=== PATIENT | male | born 1955 | race Caucasian/White ===

== ENCOUNTER 2018-06-06 01:05 | Emergency (ER) | payer MEDICARE, BC ==
--- NOTE | 2018-06-06 01:21 | ERPHSYRPT ---
- History of Present Illness Time Seen by Provider: 06/06/18 01:10 Historian: patient Exam Limitations: no limitations Physician History: 62 y/o diabetic, obese white male with hypertension and hypercholesterolemia prensts with substernal central chest pain described as chest congestion and assoociated sweating. onset 1 hour captain cannery tender. pt took 2 baby asa and no ntg. pt denies cp at time of this evaluation. pt was resting. pts gallbladder surgically removed. pt has h/o heart vessell blockage on plavix. Timing/Duration: today, hour(s) (1) Activities at Onset: rest Quality: fullness, pressure Location: substernal, central Chest Pain Radiation: no radiation Severity of Pain-Max: moderate (intermittent since yeserday) Severity of Pain-Current: none Modifying Factors: Improves With: aspirin Associated Symptoms: diaphoresis, No nausea, No vomiting, No palpitations, No heartburn, No abdominal pain, No shortness of breath, No cough, No hurts to breathe, No chills, No fever, No fatigue, No weakness, No swelling/lump in chest , No syncope, No headache, No dizziness, No back pain Prior Chest Pain/Cardiac Workup: cardiac cath, stress test Nitro Today/Relief: no nitro taken today Aspirin Treatment Today: 81 mg x 2 Allergies/Adverse Reactions: bacitracin [From Neosporin] Allergy (Mild, Unverified 02/18/12 20:13) Blisters neosporin ointment bacitracin zinc [From Neosporin] Allergy (Mild, Unverified 02/18/12 20:13) Blisters neosporin ointment benzalkonium chloride [From Neosporin] Allergy (Mild, Unverified 02/18/12 20:13) Blisters neosporin ointment gramicidin D [From Neosporin] Allergy (Mild, Unverified 02/18/12 20:13) Blisters neosporin ointment hydrocortisone [From Neosporin] Allergy (Mild, Unverified 02/18/12 20:13) Blisters neosporin ointment neomycin sulfate [From Neosporin] Allergy (Mild, Unverified 02/18/12 20:13) Blisters neosporin ointment polymyxin B [From Neosporin] Allergy (Mild, Unverified 02/18/12 20:13) Blisters neosporin ointment polymyxin B sulfate [From Neosporin] Allergy (Mild, Unverified 02/18/12 20:13) Blisters neosporin ointment liraglutide [From Victoza] Allergy (Verified 06/06/18 01:30) morphine Adverse Reaction (Intermediate, Unverified 02/18/12 20:13) hallucinate Home Medications: Insulin Glargine [Lantus Insulin] 70 units SQ HS 11/21/11 [History] Insuln Asp Prt/Insulin Aspart [Novolog Mix 70-30 Flexpen Syrn] 15 units SQ QAM 11/21/11 [History] Simvastatin 20Mg [Zocor 20Mg] 40 mg PO DAILY 11/21/11 [History] Aspirin 162 mg PO DAILY 11/23/11 [History] Amlodipine Besylate 5 mg [Norvasc 5 mg] 5 mg PO DAILY 06/06/18 [History] Carvedilol 12.5 mg [Coreg 12.5 mg] 12.5 mg PO BID 06/06/18 [History] Dapagliflozin Propanediol [Farxiga] 5 mg PO DAILY 06/06/18 [History] Enalapril Maleate 10 mg [Vasotec 10 MG] 20 mg PO DAILY 06/06/18 [History] Hydrochlorothiazide 12.5 mg PO DAILY 06/06/18 [History] Insulin Aspart [NovoLOG Insulin] 1 unit SQ AC 06/06/18 [History] Insulin Aspart [NovoLOG Insulin] 20 unit SQ DINNER 06/06/18 [History] Insulin Aspart [NovoLOG Insulin] 25 units SQ LUNCH 06/06/18 [History] Metformin HCl 1,000 mg PO BID 06/06/18 [History] Hx Tetanus, Diphtheria Vaccination/Date Given: No (more than 10 yrs) Hx Influenza Vaccination/Date Given: Yes (2010) Hx Pneumococcal Vaccination/Date Given: Yes (2010) - Review of Systems Constitutional: No Symptoms, No Fever, No Weakness Eyes: No Symptoms Ears, Nose, & Throat: No Symptoms Respiratory: No Symptoms Cardiac: Chest Pain Abdominal/Gastrointestinal: No Symptoms, No Abdominal Pain, No Nausea, No Vomiting Genitourinary Symptoms: No Symptoms, No Dysuria, No Frequency, No Hematuria Musculoskeletal: No Symptoms Skin: Other (diaphoresis) Neurological: No Symptoms Psychological: No Symptoms Endocrine: Excessive Sweating (this am) Hematologic/Lymphatic: No Symptoms Immunological/Allergic: No Symptoms All Other Systems: Reviewed and Negative - Past Medical History Pertinent Past Medical History: Yes Neurological History: Peripheral Neuropathy ENT History: No Pertinent History Cardiac History: Coronary Artery Disease, High Cholesterol, Hypertension Respiratory History: No Pertinent History Endocrine Medical History: Diabetes Type II Musculoskeletal History: Arthritis GI Medical History: No Pertinent History History: No Pertinent History Psycho-Social History: No Pertinent History Male Reproductive Disorders: No Pertinent History Other Medical History: SEE ABOVE - Past Surgical History Past Surgical History: Yes Neuro Surgical History: No Pertinent History Cardiac: Cardiac Catheterization Respiratory: No Pertinent History Gastrointestinal: Cholecystectomy Genitourinary: No Pertinent History Musculoskeletal: Orthopedic Surgery Male Surgical History: No Pertinent History Other Surgical History: Choly, Right Leg - Social History Smoking Status: Never smoker Exposure to second hand smoke: No Drug Use: none Patient Lives Alone: No - Nursing Vital Signs Nursing Vital Signs: Initial Vital Signs Temperature 99.5 F 06/06/18 01:07 Pulse Rate 80 06/06/18 01:07 Respiratory Rate 24 06/06/18 01:07 Blood Pressure 152/74 06/06/18 01:07 O2 Sat by Pulse Oximetry 95 06/06/18 01:07 Pain Scale Pain Intensity 0 - Physical Exam General Appearance: mild distress, alert, anxiety Eye Exam: PERRL/EOMI, eyes nml inspection Ears, Nose, Throat Exam: normal ENT inspection, TMs normal, moist mucous membranes Neck Exam: normal inspection, non-tender, supple, full range of motion Respiratory Exam: normal breath sounds, chest tenderness, lungs clear, airway intact, No respiratory distress, No accessory muscle use, No rhonchi, No wheezing, No stridor Cardiovascular Exam: regular rate/rhythm, normal heart sounds, normal peripheral pulses Gastrointestinal/Abdomen Exam: soft, normal bowel sounds, No tenderness, No guarding, No rebound Rectal Exam: not done Back Exam: normal inspection, normal range of motion, No CVA tenderness, No vertebral tenderness Extremity Exam: normal inspection, normal range of motion, pelvis stable Neurologic Exam: alert, oriented x 3, cooperative, jockey valet II-XII nml as tested Skin Exam: diaphoresis Lymphatic Exam: No adenopathy SpO2 Interpretation: normal Oxygen Delivery: Room Air - Course Nursing assessment & vital signs reviewed: Yes EKG Interpreted by Me: RATE (81), A-fib (? new onset rate controlled), NORMAL AXIS, NORMAL INTERVALS (compared to ekg dated 11/26/11, new onset nonspecific st changes in leads 1 and v6), Non-specific ST Changes Ordered Tests: Active Orders 24 hr Category Date Time Status ACCUCHECK [Accucheck] STAT Care 06/06/18 01:53 Active Embossing Machine Operator STAT Care 06/06/18 01:26 Active EKG-ER Only STAT Care 06/06/18 01:25 Active IV Insertion STAT Care 06/06/18 01:25 Active Oxygen-ED Only NASAL CANNULA 2 lpm Care 06/06/18 01:51 Active Pulse Oximetry (ED) STAT Care 06/06/18 01:25 Active CHEST 1 VIEW (PORTABLE) Stat Exams 06/06/18 01:44 Taken CHEST WITH CONTRAST [CT] Stat Exams 06/06/18 03:27 Taken BLOOD CULTURE Stat Lab 06/06/18 03:45 Received CBC W DIFF Stat Lab 06/06/18 01:30 Completed CMP Stat Lab 06/06/18 01:30 Completed D-DIMER QUANTITATION Stat Lab 06/06/18 01:30 Completed Lactic Acid Stat Lab 06/06/18 03:48 Completed NT PRO BNP Stat Lab 06/06/18 01:30 Completed PROTIME WITH INR Stat Lab 06/06/18 01:30 Completed TROPONIN Q3H Lab 06/06/18 01:30 Completed TROPONIN Q3H Lab 06/06/18 04:30 Ordered TROPONIN Q3H Lab 06/06/18 07:30 Ordered TROPONIN Q3H Lab 06/06/18 10:30 Ordered TROPONIN Q3H Lab 06/06/18 13:30 Ordered Medication Summary Generic Name Dose Route Start Last Admin Trade Name Freq PRN Reason Stop Dose Admin Sodium Chloride 1,000 mls @ 50 mls/hr 06/06/18 01:30 06/06/18 01:34 Sodium Chloride 0.9% 1000 Ml IV 07/06/18 01:29 50 mls/hr .Q20H FREDDY Administration Discontinued Medications Generic Name Dose Route Start Last Admin Trade Name Freq PRN Reason Stop Dose Admin Aspirin 162 mg 06/06/18 01:25 06/06/18 01:33 Baby Aspirin 81 Mg Chew PO 06/06/18 01:26 162 mg STAT ONE Administration Aspirin Confirm 06/06/18 01:31 Baby Aspirin 81 Mg Chew Administered 06/06/18 01:32 Dose 162 mg .ROUTE .STK-MED ONE Ceftriaxone Sodium/Dextrose 1 g in 50 mls @ 100 mls/hr 06/06/18 04:01 04:36 Rocephin 1 Gm-D5w 50 Ml Bag IV 06/06/18 04:30 Infused STAT STA Infusion Ceftriaxone Sodium/Dextrose Confirm 06/06/18 04:03 Rocephin 1 Gm-D5w 50 Ml Bag Administered 06/06/18 04:04 Dose 1 g in 50 mls @ ud IV .STK-MED ONE Nitroglycerin 0.4 mg 06/06/18 01:25 06/06/18 01:34 Nitrostat 0.4 Mg (Ed) SL 06/06/18 01:26 0.4 mg STAT ONE Administration Nitroglycerin Confirm 06/06/18 01:31 Nitrostat 0.4 Mg (Ed) Administered 06/06/18 01:32 Dose 0.4 mg SL .STK-MED ONE Ondansetron HCl 4 mg 06/06/18 01:25 06/06/18 01:34 Zofran 4 Mg/2 Ml Vial IV 06/06/18 01:26 4 mg STAT ONE Administration Ondansetron HCl Confirm 06/06/18 01:31 Zofran 4 Mg/2 Ml Vial Administered 06/06/18 01:32 Dose 4 mg .ROUTE .STK-MED ONE Lab/Rad Data: Laboratory Result Diagrams 06/06/18 01:30 06/06/18 01:30 Laboratory Results 06/06/18 06/06/18 06/06/18 Range/Units 03:48 01:30 01:30 WBC (4.0-10.5) K/mm3 RBC (4.1-5.6) M/mm3 Hgb (12.5-18.0) gm/dl Hct (42-50) % MCV (78-100) fl MCH (26-32) pg MCHC (32-36) g/dl RDW (11.5-14.0) % Plt Count (150-450) K/mm3 MPV (6-9.5) fl Gran % (36.0-66.0) % Eos # (Auto) (0-0.5) Absolute Lymphs (auto) (1.0-4.6) Absolute Monos (auto) (0.0-1.3) Lymphocytes % (24.0-44.0) % Monocytes % (0.0-12.0) % Eosinophils % (0.00-5.0) % Basophils % (0.0-0.4) % Absolute Granulocytes (1.4-6.9) Basophils # (0-0.4) PT 11.8 (8.83-12.87) SECONDS INR 1.01 (0.8-3.0) D-Dimer 601 H* (215-500) ng/mL Sodium (137-145) mmol/L Potassium (3.5-5.1) mmol/L Chloride (98-107) mmol/L Carbon Dioxide (22-30) mmol/L Anion Gap (5-15) MEQ/L BUN (9-20) mg/dL Creatinine (0.66-1.25) mg/dL Estimated GFR ML/MIN Glucose (74-106) mg/dL Lactic Acid 1.4 (0.4-2.0) Calcium (8.4-10.2) mg/dL Total Bilirubin (0.2-1.3) mg/dL AST (17-59) U/L ALT (0-50) U/L Alkaline Phosphatase (38-126) U/L Troponin I < 0.012 (0.000-0.034) ng/mL NT-Pro-B Natriuret Pep (0-900) pg/mL Serum Total Protein (6.3-8.2) g/dL Albumin (3.5-5.0) g/dL 18 06/06/18 Range/Units 01:30 01:30 WBC 6.6 (4.0-10.5) K/mm3 RBC 6.05 H (4.1-5.6) M/mm3 Hgb 15.7 (12.5-18.0) gm/dl Hct 49.0 (42-50) % MCV 81.0 (78-100) fl MCH 25.9 L (26-32) pg MCHC 32.0 (32-36) g/dl RDW 18.1 H (11.5-14.0) % Plt Count 222 (150-450) K/mm3 MPV 10.6 H (6-9.5) fl Gran % 55.2 (36.0-66.0) % Eos # (Auto) 0.28 (0-0.5) Absolute Lymphs (auto) 1.34 (1.0-4.6) Absolute Monos (auto) 1.31 H (0.0-1.3) Lymphocytes % 20.4 L (24.0-44.0) % Monocytes % 19.9 H (0.0-12.0) % Eosinophils % 4.3 (0.00-5.0) % Basophils % 0.2 (0.0-0.4) % Absolute Granulocytes 3.63 (1.4-6.9) Basophils # 0.01 (0-0.4) PT (8.83-12.87) SECONDS INR (0.8-3.0) D-Dimer (215-500) ng/mL Sodium 138 (137-145) mmol/L Potassium 4.6 (3.5-5.1) mmol/L Chloride 103 (98-107) mmol/L Carbon Dioxide 24 (22-30) mmol/L Anion Gap 15.1 H (5-15) MEQ/L BUN 24 H (9-20) mg/dL Creatinine 0.97 (0.66-1.25) mg/dL Estimated GFR > 60.0 ML/MIN Glucose 122 H (74-106) mg/dL Lactic Acid (0.4-2.0) Calcium 9.2 (8.4-10.2) mg/dL Total Bilirubin 0.90 (0.2-1.3) mg/dL AST 82 H (17-59) U/L ALT 75 H (0-50) U/L Alkaline Phosphatase 102 (38-126) U/L Troponin I (0.000-0.034) ng/mL NT-Pro-B Natriuret Pep 271 (0-900) pg/mL Serum Total Protein 6.3 (6.3-8.2) g/dL Albumin 4.0 (3.5-5.0) g/dL - Progress Progress: improved, re-examined Air Movement: good Progress Note: 06/06/18 04:53 cxr-?bibasilar atelectasis vs infiltrate ct chest-right lower lobe pneumonia. no pulm emboli 06/06/18 05:10 no cp. repeat 3 hr ekg 0503 hr74, normal axis. no acute st segment changes. Blood Culture(s) Obtained: Yes Antibiotics given: Yes Counseled pt/family regarding: lab results, diagnosis, need for follow-up, rad results - Departure Time of Disposition: 05:12 Departure Disposition: Home Clinical Impression: Chest pain in adult, Right lower lobe pneumonia Condition: Stable Critical Care Time: No Referrals: DIRK KELLEY [Primary Care Provider] - Additional Instructions: drink plenty of fluids. follow up with primary doctor for further management. take medications as prescribed. return to ED for worsening symptoms Prescriptions: Azithromycin 250 mg [Zithromax 250 MG TABLET] 250 mg PO ZPACK #6 tablet
[2018-06-06] MEDS ORDERED: Nitrostat 0.4 MG (ED) SL ONE ×2 (01:25→01:31)
[2018-06-06] MEDS ORDERED: Zofran 4 MG/2 ML VIAL IV ONE (01:25)
[2018-06-06] MEDS ORDERED: BABY ASPIRIN 81 MG CHEW PO ONE (01:25)
[2018-06-06] MEDS ORDERED: Sodium Chloride 0.9% 1000 ML 1,000 ML IV SCH (01:30)
[2018-06-06] MEDS ORDERED: Sodium Chloride 0.9% 1000 ML 1,000 ML ONE (01:31)
[2018-06-06] MEDS ORDERED: BABY ASPIRIN 81 MG CHEW ONE (01:31)
[2018-06-06] MEDS ORDERED: Zofran 4 MG/2 ML VIAL ONE (01:31)
[2018-06-06 01:46] LABS: BASOPHIL % 0.2 % (0.0-0.4); Basophil (Absolute #) 0.01 (0-0.4); Eosinophil % 4.3 % (0.00-5.0); Eosinophil (Absolute #) 0.28 (0-0.5); Granulocyte Absolute (ANC) 3.63 (1.4-6.9); Granulocytes % 55.2 % (36.0-66.0); Hemoglobin 15.7 gm/dl (12.5-18.0); Lymphocyte (Absolute #) 1.34 (1.0-4.6); Lymphocytes % 20.4 % (24.0-44.0); Mean Platelet Volume 10.6 fl (6-9.5); Monocyte (Absolute #) 1.31 (0.0-1.3); Monocytes % 19.9 % (0.0-12.0); Platelet Count 222 K/mm3 (150-450); Red Blood Count 6.05 M/mm3 (4.1-5.6); Red Cell Distribution Width 18.1 % (11.5-14.0); White Blood Count 6.6 K/mm3 (4.0-10.5)
[2018-06-06 01:58] LABS: Mean Corpuscular Hemoglobin 25.9 pg (26-32)
[2018-06-06 02:00] LABS: INR 1.01 (0.8-3.0)
[2018-06-06 02:14] LABS: ALKALINE PHOSPHATASE 102 U/L (38-126); ANION GAP 15.1 MEQ/L (5-15); BLOOD UREA NITROGEN 24 mg/dL (9-20); CHLORIDE 103 mmol/L (98-107); Calcium 9.2 mg/dL (8.4-10.2); Carbon Dioxide 24 mmol/L (22-30); Creatinine 1 0.97 mg/dL (0.66-1.25); Glucose 122 mg/dL (74-106); NT PRO BNP 271 pg/mL (0-900); Potassium 4.6 mmol/L (3.5-5.1); SGOT/AST 82 U/L (17-59); SGPT/ALT 75 U/L (0-50); SODIUM 138 mmol/L (137-145); Total Protein 6.3 g/dL (6.3-8.2)
[2018-06-06] MEDS ORDERED: ROCEPHIN 1 Gm-D5w 50 ml Bag** 1 G/50 ML IVPB IV STA (04:01)
[2018-06-06] MEDS ORDERED: ROCEPHIN 1 Gm-D5w 50 ml Bag** 1 G/50 ML IVPB IV ONE (04:03)
[2018-06-06 04:08] VITALS: BP 124/65
[2018-06-06 04:57] VITALS: PULSE 72; O2SAT 94
--- NOTE | 2018-06-06 08:27 | XRAY ---
Indication: Short of breath. Elevated d-dimer. Multiple contiguous axial images obtained through the chest using 80 cc Isovue-370 contrast and PE protocol. Comparison: None There is good opacification of the pulmonary arteries to include the lobar and segmental branches. No filling defect or pulmonary embolus. Heart is not enlarged. Aorta is normal in course and caliber. No pathologic mediastinal/hilar lymphadenopathy. Examination of the lung parenchyma demonstrates posterior medial right lower lobe consolidating airspace disease with small effusion. 9 mm left apical noncalcified nodule probably granulomatous. Tiny right middle lobe subpleural calcified granuloma. Bony thorax intact with flowing osteophytes throughout the spine. Limited upper abdomen demonstrates fatty liver, cholecystectomy clips, and 4 cm left renal cyst. Impression: 1. Negative pulmonary embolus. 2. Consolidating right lower lobe airspace disease with small effusion. 3. Subcentimeter left apical noncalcified and tiny right middle lobe calcified granulomatous. 4. Incidental fatty liver and left renal cyst. 5. Flowing spinal osteophytes favoring diffuse idiopathic skeletal hyperostosis (DISH). Comment: Preliminary interpretation was made by [facility]. Pulmonary nodules, fatty liver, renal cyst, and bony findings not reported and not felt to be critical findings. CTDI 23.68
--- NOTE | 2018-06-06 08:27 | XRAY ---
Indication: Chest pain and cough. Comparison: August 07, 2013. Portable chest demonstrates new right infrahilar infiltrate/atelectasis. Remaining heart and lungs unremarkable. Bony thorax intact again with mild degenerative changes.
== END 2018-06-06 06:05 | disposition home or self-care (01) ==
LOC: ED 01:05
DX: R07.9 Chest pain, unspecified (principal); J18.9 Pneumonia, unspecified organism; R61 Generalized hyperhidrosis; I48.91 Unspecified atrial fibrillation; E11.9 Type 2 diabetes mellitus without complications; I10 Essential (primary) hypertension; Z79.4 Long term (current) use of insulin; Z79.899 Other long term (current) drug therapy; Z79.01 Long term (current) use of anticoagulants
CPT/HCPCS: 36000; 36415; 71045; 71260; 80053; 82962; 83605; 83880; 84484; 85025; 85379; 85610; 87040; 93005; 93041; 96360; 96361; 96365; 96374; 99285; J0696; J2405; A9270-GY

== ENCOUNTER 2019-05-26 13:32 | Emergency (ER) | payer BC, MEDICARE ==
[2019-05-26] MEDS ORDERED: MOTRIN 200 MG PO STA (13:52)
[2019-05-26] MEDS ORDERED: TENIVAC VIAL IM ONE ×2 (13:53→13:58)
--- NOTE | 2019-05-26 13:56 | ERPHSYRPT ---
- History of Present Illness Time Seen by Provider: 05/26/19 13:45 Source: patient Exam Limitations: no limitations Patient Subjective Stated Complaint: Fall-Right rib pain Triage Nursing Assessment: Patient brought back to ED via w/c and transferred to bed per self with cane. Patient A+O X3. Patient's skin pink, warm and dry. Patient was taking his dog outside and dog ran for a cat and both fell about 10am . Patient states he landed on right side. Patient denies hitting head or losing consciousness. Patient complains of right sided rib pain sharp pain 5/ 10. Lungs clear a/p hao. No visible bruising or injuries noted. Physician History: tthe patient is a 59 male who presents with a chief complaint right-sided chest pain that started at around 10:00 this morning after he fell. He reportedly was walking his dog, which was a pit bull, when a dog reports CAUSING him to be called for by the developed via the leash that he was using the walker stone. As a result, the patient fell face forward onto a concrete surface to the right side of his chest resulted in injury. Pain described as a sharp pain primarily located to the seventh and eighth ribs and axillary aspect of the right chest wall that is constant and increases with palpation and deep inspiration. He denies shortness of breath, loss of consciousness, head injury, neck pain and the only additional injury he reportedly sustained were some abrasions to his right hand in addition to an abrasion to the left knee. Addendum note when his last tetanus prophylaxis was administered he thinks over 10 years. He denies anticoagulant use and reportedly takes a baby aspirin daily. The pain is mild to moderate severity and the patient reportedly drove himself to the emergency department. Occurred: this morning Reason for Fall: tripped, fell from standing pos Injuries/Pain Location: upper extremity, chest, lower extremity Loss of Consciousness: no loss of consciousness Quality: sharpness, stabbing Severity of Pain-Max: moderate Severity of Pain-Current: mild Modifying Factors: Improves With: movement, rest Associated Symptoms (Fall): other (Abrasions) Allergies/Adverse Reactions: bacitracin [From Neosporin] Allergy (Mild, Verified 05/26/19 13:39) Blisters neosporin ointment bacitracin zinc [From Neosporin] Allergy (Mild, Verified 05/26/19 13:39) Blisters neosporin ointment benzalkonium chloride [From Neosporin] Allergy (Mild, Verified 05/26/19 13:39) Blisters neosporin ointment gramicidin D [From Neosporin] Allergy (Mild, Verified 05/26/19 13:39) Blisters neosporin ointment hydrocortisone [From Neosporin] Allergy (Mild, Verified 05/26/19 13:39) Blisters neosporin ointment neomycin sulfate [From Neosporin] Allergy (Mild, Verified 05/26/19 13:39) Blisters neosporin ointment polymyxin B [From Neosporin] Allergy (Mild, Verified 05/26/19 13:39) Blisters neosporin ointment polymyxin B sulfate [From Neosporin] Allergy (Mild, Verified 05/26/19 13:39) Blisters neosporin ointment liraglutide [From Victoza] Allergy (Verified 05/26/19 13:39) morphine Adverse Reaction (Intermediate, Verified 05/26/19 13:39) hallucinate Home Medications: Insulin Glargine [Lantus Insulin] 70 units SQ HS 11/21/11 [History] Insuln Asp Prt/Insulin Aspart [Novolog Mix 70-30 Flexpen Syrn] 15 units SQ QAM 11/21/11 [History] Simvastatin 20Mg [Zocor 20Mg] 40 mg PO DAILY 11/21/11 [History] Amlodipine Besylate 5 mg [Norvasc 5 mg] 5 mg PO DAILY 06/06/18 [History] Carvedilol 12.5 mg [Coreg 12.5 mg] 12.5 mg PO BID 06/06/18 [History] Hydrochlorothiazide 12.5 mg PO DAILY 06/06/18 [History] Insulin Aspart [NovoLOG Insulin] 1 unit SQ AC 06/06/18 [History] Insulin Aspart [NovoLOG Insulin] 20 unit SQ DINNER 06/06/18 [History] Insulin Aspart [NovoLOG Insulin] 25 units SQ LUNCH 06/06/18 [History] Metformin HCl 1,000 mg PO BID 06/06/18 [History] Lisinopril 10 mg PO DAILY 05/26/19 [History] glipiZIDE [Glipizide] 1 tab PO DAILY 05/26/19 [History] Hx Tetanus, Diphtheria Vaccination/Date Given: No (more than 10 yrs) Hx Influenza Vaccination/Date Given: Yes Hx Pneumococcal Vaccination/Date Given: No Immunizations Up to Date: Yes - Review of Systems Constitutional: No Symptoms Eyes: No Symptoms Ears, Nose, & Throat: No Symptoms Respiratory: No Cough (he), No Cyanosis, No Dyspnea (aand), No Dyspnea on Exertion (VILLATORO) Cardiac: Chest Pain (is a) Abdominal/Gastrointestinal: No Symptoms Genitourinary Symptoms: No Symptoms Musculoskeletal: Other (chest wall pain and tenderness, right side), No Back Pain, No Neck Pain, No Deformity Skin: Other (Abrasion to R hand and left knee) Neurological: No Symptoms, No Headache All Other Systems: Reviewed and Negative - Past Medical History Pertinent Past Medical History: Yes Neurological History: Peripheral Neuropathy ENT History: No Pertinent History Cardiac History: Coronary Artery Disease, High Cholesterol, Hypertension Respiratory History: No Pertinent History Endocrine Medical History: Diabetes Type II Musculoskeletal History: Arthritis GI Medical History: No Pertinent History History: No Pertinent History Psycho-Social History: No Pertinent History Male Reproductive Disorders: No Pertinent History Other Medical History: SEE ABOVE - Past Surgical History Past Surgical History: Yes Neuro Surgical History: No Pertinent History Cardiac: Cardiac Catheterization Respiratory: No Pertinent History Gastrointestinal: Cholecystectomy Genitourinary: No Pertinent History Musculoskeletal: Orthopedic Surgery Male Surgical History: No Pertinent History Other Surgical History: Choly, Right Leg - Social History Smoking Status: Never smoker Exposure to second hand smoke: Yes Drug Use: none Patient Lives Alone: No - Nursing Vital Signs Nursing Vital Signs: Initial Vital Signs Temperature 98.4 F 05/26/19 13:40 Pulse Rate 96 H 05/26/19 13:40 Respiratory Rate 18 05/26/19 13:40 Blood Pressure 147/71 05/26/19 13:40 O2 Sat by Pulse Oximetry 94 L 05/26/19 13:40 Pain Scale Pain Intensity 4 - Elias Coma Score Best Eye Response (Walker): (4) open spontaneously Best Verbal Response (Elias): (5) oriented Best Motor Response (Elias): (6) obeys commands Elias Total: 15 - Physical Exam General Appearance: no apparent distress Head Injury: no evidence of injury Eye Exam: PERRL/EOMI, eyes nml inspection, No scleral icterus, No pale conjunctivae ENT Exam: airway nml, No evidence of ENT injury, No dental injury Neck Exam: supple, trachea midline, full range of motion, normal inspection, other (No posterior cervical spine tenderness, crepitus or deformity), No stiff neck, No tenderness Respiratory/Chest Exam: chest tenderness, normal breath sounds, rib tenderness, splinting, other (Point tenderness to the right 7-8 ribs along the axiallary region of chest wall with no visible injury noted), No respiratory distress, No ecchymosis, No crepitus, No decreased breath sounds, No rales, No rhonchi, No wheezing, No accessory muscle use, No subcutaneous emphysema, No palpable fracture, No paradoxical movements Cardiovascular Exam: normal heart sounds, regular rate/rhythm, normal peripheral pulses, No murmur, No JVD, No gallop Gastrointestinal Exam: soft, distention, No tenderness, No mass, No guarding Back Exam: normal inspection, No vertebral tenderness Extremity Exam: other (Superficial abrasion noted to the dorsal surface of the R hand and a singe quarter-sized superficial abrasion was noted to the L knee. Chronic lymphedema noted in the bilateral lower extremities and the patient is wearing compression stockings and shoes) Neurologic Exam: alert, oriented x 3, cooperative, normal mood/affect Skin Exam: other (Abrasion) SpO2 Interpretation: normal SpO2: 94 O2 Delivery: Room Air - Radiology Exams Chest X-ray Interpretation: Interpreted by me, Reviewed by me, Other (stable nonacute chest with chronic features. On my review of dressing evidence of pneumothorax or obvious displaced rib fracture.) Ordered Tests: Active Orders 24 hr Category Date Time Status CHEST 2 VIEWS (PA AND LAT) Stat Exams 05/26/19 14:26 Completed Medication Summary Discontinued Medications Generic Name Dose Route Start Last Admin Trade Name Freq PRN Reason Stop Dose Admin Ibuprofen 400 mg 05/26/19 13:52 05/26/19 14:04 Motrin 200 Mg PO 05/26/19 13:53 400 mg ONCE STA Administration Ibuprofen Confirm 05/26/19 13:57 Motrin 400 Mg Administered 05/26/19 13:58 Dose 400 mg .ROUTE .STK-MED ONE Tetanus/Diphtheria Toxoids Adsorbed 0.5 ml 05/26/19 13:53 05/26/19 14:00 Tenivac Vial IM 05/26/19 13:54 0.5 ml .ONCE ONE Administration Tetanus/Diphtheria Toxoids Adsorbed Confirm 05/26/19 13:58 Tenivac Vial Administered 05/26/19 13:59 Dose 0.5 ml IM .STK-MED ONE - Progress Progress: improved Counseled pt/family regarding: diagnosis - Departure Departure Disposition: Home, Extended Care Facility Clinical Impression: Contusion of rib on right side, Fall, Abrasion of right hand, Abrasion of left knee Condition: Stable Critical Care Time: No Referrals: DIRK KELLEY [Primary Care Provider] - Follow Up with PCP (Follow-up as needed ) Instructions: Skin Abrasions, Preventing Falls, Bruised Rib (DC) Additional Instructions: Please take your medication as prescribed and follow with her primary care provider as needed if your pain continues. Forms: Hypertension Instructions Plan of Treatment: nontoxic in appearance. The patient's chest x-ray two-view showed no evidence of fracture, pneumothorax or hemothorax or a severe pleural effusion. suspect the patient may be suffering from a rib contusion at this time however nondisplaced fracture of the right rib (s)that cannot be detected on the patient 's chest x-ray is also on the differential.the patient was informed of the possibility and informed that regardless of whether he suffered from a contusion or fracture, the treatment would be the same in terms of pain medication. We'll discharge him with a short prescription for [place] to take as needed for pain in addition to stool softeners. Prescriptions: Hydrocodone/Acetaminophen [Hydrocodone-Acetamin 5-325 mg] 1 - 2 each PO Q6H PRN PRN 3 Days #16 tablet MDD 8 PRN Reason: Pain Docusate Sodium 100 mg [Colace 100 MG] 100 mg PO BID 30 Days #60 cap
[2019-05-26] MEDS ORDERED: MOTRIN 400 MG ONE (13:57)
[2019-05-26 14:25] VITALS: BP 136/66
--- NOTE | 2019-05-26 14:37 | XRAY ---
Indication: Right-sided pain following fall. Comparison: June 13, 2018. PA/lateral chest demonstrates focal eventration of the right hemidiaphragm and right middle lobe subsegmental atelectasis/scarring. No focal infiltrate, consolidation, or large effusion. Heart and mediastinal structures within normal limits. Bony thorax intact again with mild degenerative changes. Impression: Stable nonacute chest with chronic features.
[2019-05-26 15:05] VITALS: PULSE 83
[2019-05-26 15:16] VITALS: O2SAT 94
== END 2019-05-26 15:13 | disposition home or self-care (01) ==
LOC: ED 13:32
DX: S20.211A Contusion of right front wall of thorax, initial encounter (principal); S60.511A Abrasion of right hand, initial encounter; S80.212A Abrasion, left knee, initial encounter; W01.198A Fall on same level from slipping, tripping and stumbling with subsequent striking against other object, initial encounter; Y93.K1 Activity, walking an animal; Y92.89 Other specified places as the place of occurrence of the external cause; R07.81 Pleurodynia; G62.9 Polyneuropathy, unspecified; I25.10 Atherosclerotic heart disease of native coronary artery without angina pectoris; E78.00 Pure hypercholesterolemia, unspecified; I10 Essential (primary) hypertension; M19.90 Unspecified osteoarthritis, unspecified site
CPT/HCPCS: 71046; 90471; 90714; 99284; A9270-GY

== ENCOUNTER 2020-02-18 08:38 | Emergency (ER) | payer BC, MEDICARE ==
--- NOTE | 2020-02-18 08:50 | ERPHSYRPT ---
- History of Present Illness Time Seen by Provider: 02/18/20 08:50 Historian: patient Exam Limitations: no limitations Physician History: This is a insulin-dependent diabetic, hypertensive obese white male patient of Dr. Adame who presents with 1 day history of nausea and dry heaves and intermittent chills. He has an insulin pump in place. He denies chest pain he denies cough he denies shortness of breath. He does not have significant abdominal pain. He has had no vomiting or diarrhea. Patient has not, to his knowledge, been exposed to anybody with COVID-19 virus. He himself has not ever been tested for this. Patient was unable to be seen by his primary care physician today and therefore came into the emergency department for evaluation. Timing/Duration: yesterday Quality: other (No pain) Severity of Pain-Max: none Severity of Pain-Current: none Modifying Factors: Improves With: nothing Associated Symptoms: nausea (And dry heaves), No vomiting Previous symptoms: no prior history Allergies/Adverse Reactions: bacitracin [From Neosporin] Allergy (Mild, Verified 02/18/20 08:54) Blisters neosporin ointment bacitracin zinc [From Neosporin] Allergy (Mild, Verified 02/18/20 08:54) Blisters neosporin ointment benzalkonium chloride [From Neosporin] Allergy (Mild, Verified 02/18/20 08:54) Blisters neosporin ointment gramicidin D [From Neosporin] Allergy (Mild, Verified 02/18/20 08:54) Blisters neosporin ointment hydrocortisone [From Neosporin] Allergy (Mild, Verified 02/18/20 08:54) Blisters neosporin ointment neomycin sulfate [From Neosporin] Allergy (Mild, Verified 02/18/20 08:54) Blisters neosporin ointment polymyxin B [From Neosporin] Allergy (Mild, Verified 02/18/20 08:54) Blisters neosporin ointment polymyxin B sulfate [From Neosporin] Allergy (Mild, Verified 02/18/20 08:54) Blisters neosporin ointment liraglutide [From Victoza] Allergy (Verified 02/18/20 08:54) morphine Adverse Reaction (Intermediate, Verified 02/18/20 08:54) hallucinate Home Medications: Insulin Glargine [Lantus Insulin] 70 units SQ HS 11/21/11 [History] Insuln Asp Prt/Insulin Aspart [Novolog Mix 70-30 Flexpen Syrn] 15 units SQ QAM 11/21/11 [History] Simvastatin 20Mg [Zocor 20Mg] 40 mg PO DAILY 11/21/11 [History] Amlodipine Besylate 5 mg [Norvasc 5 mg] 10 mg PO DAILY 06/06/18 [History] Carvedilol 12.5 mg [Coreg 12.5 mg] 12.5 mg PO BID 06/06/18 [History] Hydrochlorothiazide 12.5 mg PO DAILY 06/06/18 [History] Insulin Aspart [NovoLOG Insulin] 1 unit SQ AC 06/06/18 [History] Insulin Aspart [NovoLOG Insulin] 20 unit SQ DINNER 06/06/18 [History] Insulin Aspart [NovoLOG Insulin] 25 units SQ LUNCH 06/06/18 [History] Metformin HCl 1,000 mg PO BID 06/06/18 [History] lisinopriL [Lisinopril] 20 mg PO DAILY 05/26/19 [History] Empagliflozin [Jardiance] 20 mg PO DAILY 02/18/20 [History] Furosemide 20 mg [Lasix 20 mg] 20 mg PO DAILY 02/18/20 [History] Semaglutide [Ozempic] 0.25 mg IM WEEKLY 02/18/20 [History] Hx Tetanus, Diphtheria Vaccination/Date Given: No (more than 10 yrs) Hx Influenza Vaccination/Date Given: Yes Hx Pneumococcal Vaccination/Date Given: No Travel Risk - International Travel Have you traveled outside of the country in past 3 weeks: No - Coronavirus Screening Are you exhibiting any of the following symptoms?: No Close contact with a COVID-19 positive Pt in past 14-21 Days: No - Review of Systems Constitutional: Fever, Chills Eyes: No Symptoms Ears, Nose, & Throat: No Symptoms Respiratory: No Symptoms Cardiac: No Symptoms Abdominal/Gastrointestinal: Nausea, No Abdominal Pain, No Vomiting, No Diarrhea Genitourinary Symptoms: No Symptoms Musculoskeletal: No Symptoms Skin: No Symptoms Neurological: No Symptoms Psychological: No Symptoms Endocrine: No Symptoms Hematologic/Lymphatic: No Symptoms Immunological/Allergic: No Symptoms All Other Systems: Reviewed and Negative - Past Medical History Pertinent Past Medical History: Yes Neurological History: Peripheral Neuropathy ENT History: No Pertinent History Cardiac History: Coronary Artery Disease, High Cholesterol, Hypertension Respiratory History: No Pertinent History Endocrine Medical History: Diabetes Type II Musculoskeletal History: Arthritis GI Medical History: No Pertinent History History: No Pertinent History Psycho-Social History: No Pertinent History Male Reproductive Disorders: No Pertinent History Other Medical History: SEE ABOVE - Past Surgical History Past Surgical History: Yes Neuro Surgical History: No Pertinent History Cardiac: Cardiac Catheterization Respiratory: No Pertinent History Gastrointestinal: Cholecystectomy Genitourinary: No Pertinent History Musculoskeletal: Orthopedic Surgery Male Surgical History: No Pertinent History Other Surgical History: Choly, Right Leg - Social History Smoking Status: Never smoker Exposure to second hand smoke: Yes Drug Use: none Patient Lives Alone: No - Nursing Vital Signs Nursing Vital Signs: Initial Vital Signs Temperature 98.5 F 02/18/20 08:44 Pulse Rate 91 H 02/18/20 08:44 O2 Sat by Pulse Oximetry 96 02/18/20 08:44 Pain Scale Pain Intensity 0 - Physical Exam General Appearance: no apparent distress, alert, anxiety, obese Eye Exam: PERRL/EOMI, eyes nml inspection Ears, Nose, Throat Exam: normal ENT inspection, moist mucous membranes Neck Exam: normal inspection, non-tender, supple, full range of motion Respiratory Exam: normal breath sounds, lungs clear, airway intact, No chest tenderness, No respiratory distress Cardiovascular Exam: regular rate/rhythm, normal heart sounds, normal peripheral pulses Gastrointestinal/Abdomen Exam: soft, normal bowel sounds, No tenderness Rectal Exam: not done Back Exam: normal inspection, normal range of motion, No CVA tenderness, No vertebral tenderness Extremity Exam: normal inspection, normal range of motion, pelvis stable Neurologic Exam: alert, oriented x 3, cooperative, core drier II-XII nml as tested Skin Exam: normal color, warm, dry Lymphatic Exam: No adenopathy SpO2 Interpretation: normal O2 Delivery: Room Air Ordered Tests: Active Orders 24 hr Category Date Time Status IV Insertion STAT Care 02/18/20 09:10 Active ABDOMEN AND PELVIS W/0 CONTRAS [CT] Stat Exams 02/18/20 09:10 Completed CHEST 1 VIEW (PORTABLE) Stat Exams 02/18/20 09:14 Completed AMYLASE Stat Lab 02/18/20 09:00 Completed BLOOD CULTURE Stat Lab 02/18/20 09:43 Received CBC W DIFF Stat Lab 02/18/20 09:00 Completed CMP Stat Lab 02/18/20 09:00 Completed LIPASE Stat Lab 02/18/20 09:00 Completed Lactic Acid Stat Lab 02/18/20 09:20 Completed [place]orne Screen Stat Lab 02/18/20 09:00 Completed TROPONIN Q3H Lab 02/18/20 09:00 Completed TROPONIN Q3H Lab 02/18/20 11:45 Completed TROPONIN Q3H Lab 02/18/20 15:15 Ordered TROPONIN Q3H Lab 02/18/20 18:15 Ordered TROPONIN Q3H Lab 02/18/20 21:15 Ordered UA W/RFX UR CULTURE Stat Lab 02/18/20 10:17 Completed Medication Summary Discontinued Medications Generic Name Dose Route Start Last Admin Trade Name Freq PRN Reason Stop Dose Admin Sodium Chloride 1,000 mls @ 999 mls/hr 02/18/20 09:10 02/18/20 11:26 Sodium Chloride 0.9% 1000 Ml IV 02/18/20 10:10 Infused .Q1H1M STA Infusion Sodium Chloride Confirm 02/18/20 09:15 Sodium Chloride 0.9% 1000 Ml Administered 02/18/20 09:16 Dose 1,000 mls @ ud .ROUTE .STK-MED ONE Ondansetron HCl 4 mg 02/18/20 09:10 02/18/20 09:16 Zofran 4 Mg/2 Ml Vial IV 02/18/20 09:11 4 mg STAT ONE Administration Ondansetron HCl Confirm 02/18/20 09:15 Zofran 4 Mg/2 Ml Vial Administered 02/18/20 09:16 Dose 4 mg .ROUTE .STK-MED ONE Lab/Rad Data: Laboratory Result Diagrams 02/18/20 09:00 02/18/20 09:00 Laboratory Results 02/18/20 02/18/20 02/18/20 Range/Units 11:45 10:17 09:45 WBC (4.0-10.5) K/mm3 RBC (4.1-5.6) M/mm3 Hgb (12.5-18.0) gm/dl Hct (42-50) % MCV (78-100) fl MCH (26-32) pg MCHC (32-36) g/dl RDW (11.5-14.0) % Plt Count (150-450) K/mm3 MPV (7.5-11.0) fl Gran % (36.0-66.0) % Eos # (Auto) (0-0.5) Absolute Lymphs (auto) (1.0-4.6) Absolute Monos (auto) (0.0-1.3) Lymphocytes % (24.0-44.0) % Monocytes % (0.0-12.0) % Eosinophils % (0.00-5.0) % Basophils % (0.0-0.4) % Absolute Granulocytes (1.4-6.9) Basophils # (0-0.4) Sodium (137-145) mmol/L Potassium (3.5-5.1) mmol/L Chloride (98-107) mmol/L Carbon Dioxide (22-30) mmol/L Anion Gap (5-15) MEQ/L BUN (9-20) mg/dL Creatinine (0.66-1.25) mg/dL Estimated GFR ML/MIN Glucose (74-106) mg/dL Lactic Acid (0.4-2.0) Calcium (8.4-10.2) mg/dL Total Bilirubin (0.2-1.3) mg/dL AST (17-59) U/L ALT (0-50) U/L Alkaline Phosphatase (38-126) U/L Troponin I 0.015 (0.000-0.034) ng/mL Serum Total Protein (6.3-8.2) g/dL Albumin (3.5-5.0) g/dL Amylase (30-110) U/L Lipase (23-300) U/L Urine Color YELLOW (YELLOW) Urine Appearance CLEAR (CLEAR) Urine pH 5.0 (5-6) Ur Specific [place] 1.008 (1.005-1.025) Urine Protein NEGATIVE (Negative) Urine Ketones NEGATIVE (NEGATIVE) Urine Blood NEGATIVE (0-5) Juan Manuel/ul Urine Nitrite NEGATIVE (NEGATIVE) Urine Bilirubin NEGATIVE (NEGATIVE) Urine Urobilinogen NEGATIVE (0-1) mg/dL Ur Leukocyte Esterase NEGATIVE (NEGATIVE) Urine WBC (Auto) NONE (0-5) /HPF Urine RBC (Auto) NONE (0-2) /HPF U Hyaline Cast (Auto) 3-5 (0-2) /LPF U Epithel Cells (Auto) NONE (FEW) /HPF Urine Bacteria (Auto) NONE (NEGATIVE) /HPF Urine Mucus (Auto) SLIGHT (NEGATIVE) /HPF Urine Culture Reflexed NO (NO) Urine Glucose >=500 (NEGATIVE) mg/dL Monoscreen (Negative) Influenza Type A Ag NEGATIVE (NEGATIVE) Influenza Type B Ag NEGATIVE (NEGATIVE) RSV (PCR) NEGATIVE (Negative) Slides for Path Review 02/18/20 02/18/20 02/18/20 Range/Units 09:20 09:00 09:00 WBC (4.0-10.5) K/mm3 RBC (4.1-5.6) M/mm3 Hgb (12.5-18.0) gm/dl Hct (42-50) % MCV (78-100) fl MCH (26-32) pg MCHC (32-36) g/dl RDW (11.5-14.0) % Plt Count (150-450) K/mm3 MPV (7.5-11.0) fl Gran % (36.0-66.0) % Eos # (Auto) (0-0.5) Absolute Lymphs (auto) (1.0-4.6) Absolute Monos (auto) (0.0-1.3) Lymphocytes % (24.0-44.0) % Monocytes % (0.0-12.0) % Eosinophils % (0.00-5.0) % Basophils % (0.0-0.4) % Absolute Granulocytes (1.4-6.9) Basophils # (0-0.4) Sodium (137-145) mmol/L Potassium (3.5-5.1) mmol/L Chloride (98-107) mmol/L Carbon Dioxide (22-30) mmol/L Anion Gap (5-15) MEQ/L BUN (9-20) mg/dL Creatinine (0.66-1.25) mg/dL Estimated GFR ML/MIN Glucose (74-106) mg/dL Lactic Acid 1.0 (0.4-2.0) Calcium (8.4-10.2) mg/dL Total Bilirubin (0.2-1.3) mg/dL AST (17-59) U/L ALT (0-50) U/L Alkaline Phosphatase (38-126) U/L Troponin I 0.022 (0.000-0.034) ng/mL Serum Total Protein (6.3-8.2) g/dL Albumin (3.5-5.0) g/dL Amylase (30-110) U/L Lipase (23-300) U/L Urine Color (YELLOW) Urine Appearance (CLEAR) Urine pH (5-6) Ur Specific [place] (1.005-1.025) Urine Protein (Negative) Urine Ketones (NEGATIVE) Urine Blood (0-5) Juan Manuel/ul Urine Nitrite (NEGATIVE) Urine Bilirubin (NEGATIVE) Urine Urobilinogen (0-1) mg/dL Ur Leukocyte Esterase (NEGATIVE) Urine WBC (Auto) (0-5) /HPF Urine RBC (Auto) (0-2) /HPF U Hyaline Cast (Auto) (0-2) /LPF U Epithel Cells (Auto) (FEW) /HPF Urine Bacteria (Auto) (NEGATIVE) /HPF Urine Mucus (Auto) (NEGATIVE) /HPF Urine Culture Reflexed (NO) Urine Glucose (NEGATIVE) mg/dL Monoscreen NEGATIVE (Negative) Influenza Type A Ag (NEGATIVE) Influenza Type B Ag (NEGATIVE) RSV (PCR) (Negative) Slides for Path Review 02/18/20 02/18/20 Range/Units 09:00 09:00 WBC 10.5 (4.0-10.5) K/mm3 RBC 5.89 H (4.1-5.6) M/mm3 Hgb 15.5 (12.5-18.0) gm/dl Hct 48.5 (42-50) % MCV 82.3 (78-100) fl MCH 26.3 (26-32) pg MCHC 32.0 (32-36) g/dl RDW 18.1 H (11.5-14.0) % Plt Count 234 (150-450) K/mm3 MPV 10.4 (7.5-11.0) fl Gran % 70.8 H (36.0-66.0) % Eos # (Auto) 0.05 (0-0.5) Absolute Lymphs (auto) 1.46 (1.0-4.6) Absolute Monos (auto) 1.55 H (0.0-1.3) Lymphocytes % 13.9 L (24.0-44.0) % Monocytes % 14.7 H (0.0-12.0) % Eosinophils % 0.5 (0.00-5.0) % Basophils % 0.1 (0.0-0.4) % Absolute Granulocytes 7.44 H (1.4-6.9) Basophils # 0.01 (0-0.4) Sodium 134 L (137-145) mmol/L Potassium 3.6 (3.5-5.1) mmol/L Chloride 97 L (98-107) mmol/L Carbon Dioxide 27 (22-30) mmol/L Anion Gap 13.5 (5-15) MEQ/L BUN 21 H (9-20) mg/dL Creatinine 1.05 (0.66-1.25) mg/dL Estimated GFR > 60.0 ML/MIN Glucose 81 (74-106) mg/dL Lactic Acid (0.4-2.0) Calcium 9.1 (8.4-10.2) mg/dL Total Bilirubin 1.20 (0.2-1.3) mg/dL AST 34 (17-59) U/L ALT 43 (0-50) U/L Alkaline Phosphatase 95 (38-126) U/L Troponin I (0.000-0.034) ng/mL Serum Total Protein 7.0 (6.3-8.2) g/dL Albumin 4.1 (3.5-5.0) g/dL Amylase 34 (30-110) U/L Lipase 39 (23-300) U/L Urine Color (YELLOW) Urine Appearance (CLEAR) Urine pH (5-6) Ur Specific [place] (1.005-1.025) Urine Protein (Negative) Urine Ketones (NEGATIVE) Urine Blood (0-5) Juan Manuel/ul Urine Nitrite (NEGATIVE) Urine Bilirubin (NEGATIVE) Urine Urobilinogen (0-1) mg/dL Ur Leukocyte Esterase (NEGATIVE) Urine WBC (Auto) (0-5) /HPF Urine RBC (Auto) (0-2) /HPF U Hyaline Cast (Auto) (0-2) /LPF U Epithel Cells (Auto) (FEW) /HPF Urine Bacteria (Auto) (NEGATIVE) /HPF Urine Mucus (Auto) (NEGATIVE) /HPF Urine Culture Reflexed (NO) Urine Glucose (NEGATIVE) mg/dL Monoscreen (Negative) Influenza Type A Ag (NEGATIVE) Influenza Type B Ag (NEGATIVE) RSV (PCR) (Negative) Slides for Path Review YES - Progress Progress: improved, re-examined Progress Note: 02/18/20 10:57 CAT scan of the abdomen and pelvis reveals no evidence of any acute intra- abdominal abnormality. Chest x-ray shows no acute intrapulmonary process 02/18/20 13:12 Patient has no chest pain he has no shortness of breath. His symptoms have improved. Counseled pt/family regarding: lab results, diagnosis, need for follow-up, rad results - Departure Departure Disposition: Home Clinical Impression: Nausea Condition: Stable Critical Care Time: No Referrals: DIRK ADAME [Primary Care Provider] - Additional Instructions: Drink plenty of clear liquids before advancing your diet. Take medication as prescribed. Follow-up with your primary care physician for persistent symptoms. Return to the emergency department if your symptoms worsen. Prescriptions: Ondansetron HCl [Zofran] 4 mg PO TID PRN #10 tablet PRN Reason: Nausea/Vomiting
[2020-02-18] MEDS ORDERED: Zofran 4 MG/2 ML VIAL IV ONE (09:10)
[2020-02-18] MEDS ORDERED: Sodium Chloride 0.9% 1000 ML 1,000 ML IV STA (09:10)
[2020-02-18] MEDS ORDERED: Zofran 4 MG/2 ML VIAL ONE (09:15)
[2020-02-18] MEDS ORDERED: Sodium Chloride 0.9% 1000 ML 1,000 ML ONE (09:15)
[2020-02-18 09:33] LABS: Absolute Neutrophil Ct (ANC) 7.44 (1.4-6.9); BASOPHIL % 0.1 % (0.0-0.4); Basophil (Absolute #) 0.01 (0-0.4); Eosinophil % 0.5 % (0.00-5.0); Eosinophil (Absolute #) 0.05 (0-0.5); Hematocrit 48.5 % (42-50); Hemoglobin 15.5 gm/dl (12.5-18.0); Lymphocyte (Absolute #) 1.46 (1.0-4.6); Lymphocytes % 13.9 % (24.0-44.0); Mean Cell Volume 82.3 fl (78-100); Mean Corpuscular Hemoglobin 26.3 pg (26-32); Mean Platelet Volume 10.4 fl (7.5-11.0); Monocyte (Absolute #) 1.55 (0.0-1.3); Monocytes % 14.7 % (0.0-12.0); Neutrophil % 70.8 % (36.0-66.0); Platelet Count 234 K/mm3 (150-450); Red Blood Count 5.89 M/mm3 (4.1-5.6); Red Cell Distribution Width 18.1 % (11.5-14.0); White Blood Count 10.5 K/mm3 (4.0-10.5)
--- NOTE | 2020-02-18 09:44 | XRAY ---
Indication: Fever and nausea. Multiple contiguous axial images obtained through the abdomen and pelvis without contrast as ordered. Comparison: None Lung bases demonstrates minimal fibrosis/scarring and tiny peripheral right middle lobe calcified granuloma. No infiltrate or effusion. Heart is not enlarged. Peripheral left abdomen not completely included in the [id number] due to patient body habitus. Noncontrasted stomach and bowel loops appear nonobstructed. Normal appendix. Minimal scattered descending and sigmoid diverticulosis. Previous cholecystectomy. No free fluid/air. Mild fatty hepatomegaly measuring 20.2 cm. Spleen is enlarged measuring 13.1 cm. 4.3 cm left renal and 3 cm right renal cyst. Right inferior renal calyx demonstrates nonobstructing punctate calculus. Remaining liver, pancreas, spleen, adrenal glands, kidneys, ureters, and bladder appear unremarkable for noncontrast exam. Mild aortoiliac calcifications without AAA. Osseous structures demonstrate mild/moderate degenerative changes throughout the spine and moderate degenerative changes of both hips. No ventral or inguinal hernias. Impression: 1. Limited exam due to patient body habitus. 2. Fatty hepatomegaly, splenomegaly, colonic diverticulosis, bilateral renal cysts, nonobstructing right renal micro-calculus, and chronic bony findings. 3. Remaining CT abdomen/pelvis without contrast exam is negative.
[2020-02-18 09:45] LABS: ALBUMIN 4.1 g/dL (3.5-5.0); ALKALINE PHOSPHATASE 95 U/L (38-126); AMYLASE 34 U/L (30-110); ANION GAP 13.5 MEQ/L (5-15); BLOOD UREA NITROGEN 21 mg/dL (9-20); CHLORIDE 97 mmol/L (98-107); Calcium 9.1 mg/dL (8.4-10.2); Carbon Dioxide 27 mmol/L (22-30); Creatinine 1 1.05 mg/dL (0.66-1.25); Glucose 81 mg/dL (74-106); LIPASE 39 U/L (23-300); Potassium 3.6 mmol/L (3.5-5.1); SGOT/AST 34 U/L (17-59); SGPT/ALT 43 U/L (0-50); SODIUM 134 mmol/L (137-145)
--- NOTE | 2020-02-18 09:52 | XRAY ---
Indication: Fever and chills. Comparison: May 26, 2019. Portable chest demonstrates normal heart and lungs with again focal eventration right hemidiaphragm. Bony thorax intact again with mild degenerative changes. No new/acute findings.
[2020-02-18 10:16] LABS: Appearance CLEAR (CLEAR); Bilirubin NEGATIVE (NEGATIVE); Blood NEGATIVE Ery/ul (0-5); Glucose >=500 mg/dL (NEGATIVE); Ketones NEGATIVE (NEGATIVE); Leukocyte Esterase NEGATIVE (NEGATIVE); Mucus SLIGHT /HPF (NEGATIVE); Nitrite NEGATIVE (NEGATIVE); Protein,Urine Dip NEGATIVE (Negative); Specific Gravity 1.008 (1.005-1.025); Urobilinogen NEGATIVE mg/dL (0-1)
[2020-02-18 10:23] LABS: INFLUENZA A NEGATIVE (NEGATIVE); INFLUENZA B NEGATIVE (NEGATIVE); RESPIRATORY SYNCTIAL VIRUS NEGATIVE (Negative)
[2020-02-18 11:16] LABS: Slide Review 1 YES
[2020-02-18 13:37] VITALS: BP 109/72; PULSE 79; O2SAT 97
== END 2020-02-18 13:30 | disposition home or self-care (01) ==
LOC: ED 08:38
DX: R11.0 Nausea (principal); I10 Essential (primary) hypertension; E11.9 Type 2 diabetes mellitus without complications; E78.00 Pure hypercholesterolemia, unspecified; Z79.899 Other long term (current) drug therapy; I25.10 Atherosclerotic heart disease of native coronary artery without angina pectoris; G62.9 Polyneuropathy, unspecified
CPT/HCPCS: 36000; 36415; 71045; 74176; 80053; 81001; 82150; 83605; 83690; 84484; 85025; 86308; 87040; 87631; 96360; 96374; 99284; J2405

== ENCOUNTER 2020-04-24 08:43 | Inpatient (IN) | payer BC, MEDICARE ==
[2020-04-24] MEDS ORDERED: Hydromorphone 1 mg/ml Injection IV ONE (09:01)
[2020-04-24] MEDS ORDERED: Zofran 4 MG/2 ML VIAL IV ONE (09:01)
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
[2020-04-24] MEDS ORDERED: Zofran 4 MG/2 ML VIAL ONE (09:18)
[2020-04-24] MEDS ORDERED: Hydromorphone 1 mg/ml Injection ONE (09:19)
[2020-04-24 09:37] LABS: Absolute Neutrophil Ct (ANC) 18.15 (1.4-6.9); Basophil (Absolute #) 0 (0-0.4); Eosinophil (Absolute #) 0 (0-0.5); Hematocrit 46.4 % (42-50); Hemoglobin 14.9 gm/dl (12.5-18.0); Mean Cell Volume 82.4 fl (78-100); Mean Corpuscular Hemoglobin 26.5 pg (26-32); Mean Corpuscular Hgb Concent. 32.1 g/dl (32-36); Mean Platelet Volume 10.4 fl (7.5-11.0); Monocyte (Absolute #) 1.12 (0.0-1.3); Monocytes % 5.6 % (0.0-12.0); Neutrophil % 91.4 % (36.0-66.0); Platelet Count 232 K/mm3 (150-450); Red Blood Count 5.63 M/mm3 (4.1-5.6); White Blood Count 19.9 K/mm3 (4.0-10.5)
[2020-04-24 09:45] LABS: ALBUMIN 4.2 g/dL (3.5-5.0); ALKALINE PHOSPHATASE 108 U/L (38-126); ANION GAP 15.7 MEQ/L (5-15); BLOOD UREA NITROGEN 32 mg/dL (9-20); CHLORIDE 93 mmol/L (98-107); Calcium 9.3 mg/dL (8.4-10.2); Carbon Dioxide 26 mmol/L (22-30); Creatinine 1 1.06 mg/dL (0.66-1.25); EST GLOMERULAR FILTRATION RATE > 60.0 ML/MIN; Glucose 96 mg/dL (74-106); Potassium 4.3 mmol/L (3.5-5.1); SGOT/AST 53 U/L (17-59); SGPT/ALT 52 U/L (0-50); SODIUM 131 mmol/L (137-145); Total Protein 7.4 g/dL (6.3-8.2)
[2020-04-24 09:58] LABS: Appearance SLIGHTLY CLOUDY (CLEAR); Bilirubin NEGATIVE (NEGATIVE); Blood NEGATIVE Ery/ul (0-5); Glucose >=500 mg/dL (NEGATIVE); Ketones MODERATE (NEGATIVE); Leukocyte Esterase NEGATIVE (NEGATIVE); Mucus SLIGHT /HPF (NEGATIVE); Nitrite NEGATIVE (NEGATIVE); Protein,Urine Dip 30 (Negative); Specific Gravity 1.023 (1.005-1.025); Urobilinogen NEGATIVE mg/dL (0-1); WBC 0-2 /HPF (0-5)
[2020-04-24] MEDS ORDERED: VANCOMYCIN 1 GRAM/200 ML BAG 1 GM/200 ML PIGGYBACK IV ONE ×2 (10:22→12:32)
[2020-04-24] MEDS ORDERED: Zosyn 3.375 GM Vial 3.375 GM in Sodium Chloride 100ML MINI-BAG PLUS 100 ML IV ONE (10:22)
[2020-04-24] MEDS ORDERED: Sodium Chloride 100ML MINI-BAG PLUS 100 ML IV ONE (11:27)
[2020-04-24] MEDS ORDERED: Zosyn 3.375 GM Vial IV ONE (11:27)
[2020-04-24] MEDS ORDERED: Zofran 4 MG/2 ML VIAL IV PRN (14:46)
[2020-04-24] MEDS ORDERED: MORPHINE SULFATE 4 MG INJ IV PRN (14:46)
[2020-04-24] MEDS ORDERED: HUMALOG SQ PRN (14:46)
[2020-04-24] MEDS ORDERED: VANCOCIN 1 GM VIAL*** 1 GM in Sodium Chloride 0.9% 250 ML 250 ML IV SCH (14:46)
[2020-04-24] MEDS: Hydromorphone 1 mg/ml Injection IV PRN (17:48)
[2020-04-24] MEDS: Zosyn 3.375 GM Vial 3.375 GM in Sodium Chloride 100ML MINI-BAG PLUS 100 ML IV SCH (18:56)
--- NOTE | 2020-04-24 19:27 | XRAY ---
Indication: Left leg pain and swelling. Two-dimensional sonogram and color Doppler imaging of the major venous vessels of the left leg was performed. Comparison: None No thrombus seen in the examined deep venous vessels of the left leg including greater saphenous vein. Veins demonstrate normal compressibility. Venous waveforms are normal with and without augmentation. Impression: Left leg negative for DVT. Comment: Preliminary report was given.
--- NOTE | 2020-04-24 19:28 | XRAY ---
Indication: Left lower extremity erythema and swelling. Necrotizing fasciitis. Multiple contiguous axial images obtained through the left lower leg including the knee/ankle joint without contrast as ordered. Two-dimensional sagittal and coronal reformatted images obtained. Comparison: None There is diffuse cutaneous and subcutaneous soft tissue swelling/edema. Tiny fluid collections as detailed seen just superficial to the deep muscles, largest just posterior to the medial gastrocnemius 11 mm thick. No focal walled off fluid collection or subcutaneous emphysema. There are 2 orthopedic medial to the medial tibial plateau. No acute fracture, dislocation, or suspicious bony lesions. Moderate degenerative changes of the ankle joint and midfoot. Lesser minimal tricompartmental degenerative changes of the knee Tiny posterior/plantar heel spurs. [place] calcifications of the Achilles tendon presumed sequela of old injury/inflammation. Impression: 1. Diffuse left lower leg cutaneous/subcutaneous soft tissue swelling/edema with tiny fluid collections as detailed. Lack of IV contrast precludes further characterization. Findings either inflammatory/infectious given clinical history or congestive. 2. Achilles tendon calcifications presumed from old injury/inflammation. 3. Degenerative changes of the knee/ankle/foot. Comment: Preliminary interpretation was made by [facility]. No critical discrepancy.
[2020-04-24] MEDS: COREG 12.5 MG PO SCH (22:15)
[2020-04-24] MEDS: ZOCOR 20MG PO SCH (22:15)
[2020-04-24] MEDS: VANCOMYCIN 1.5 GRAM/300 ML BAG 1.5 GM/300 ML PIGGYBACK IV SCH (22:16)
[2020-04-25] MEDS: Hydromorphone 1 mg/ml Injection IV PRN ×4 (00:11→22:48)
[2020-04-25] MEDS: Zosyn 3.375 GM Vial 3.375 GM in Sodium Chloride 100ML MINI-BAG PLUS 100 ML IV SCH ×4 (00:11→18:47)
[2020-04-25] MEDS ORDERED: Hydromorphone 1 mg/ml Injection IV ONE ×2 (00:30→06:30)
[2020-04-25] MEDS ORDERED: BENADRYL 25 MG CAPSULE PO PRN (00:32)
[2020-04-25] MEDS: TYLENOL 325 MG PO PRN (00:38)
[2020-04-25 05:55] LABS: ALBUMIN 3.4 g/dL (3.5-5.0); ALKALINE PHOSPHATASE 91 U/L (38-126); ANION GAP 7.8 MEQ/L (5-15); BLOOD UREA NITROGEN 27 mg/dL (9-20); CHLORIDE 99 mmol/L (98-107); Calcium 8.7 mg/dL (8.4-10.2); Carbon Dioxide 29 mmol/L (22-30); Creatinine 1 1.07 mg/dL (0.66-1.25); EST GLOMERULAR FILTRATION RATE > 60.0 ML/MIN; Glucose 68 mg/dL (74-106); Potassium 3.4 mmol/L (3.5-5.1); SGOT/AST 36 U/L (17-59); SGPT/ALT 42 U/L (0-50); SODIUM 132 mmol/L (137-145); Total Protein 6.2 g/dL (6.3-8.2)
[2020-04-25 05:56] LABS: Absolute Neutrophil Ct (ANC) 12.83 (1.4-6.9); BASOPHIL % 0.1 % (0.0-0.4); Basophil (Absolute #) 0.02 (0-0.4); Eosinophil % 0.4 % (0.00-5.0); Eosinophil (Absolute #) 0.06 (0-0.5); Hematocrit 42.6 % (42-50); Hemoglobin 13.5 gm/dl (12.5-18.0); Lymphocyte (Absolute #) 0.83 (1.0-4.6); Lymphocytes % 5.5 % (24.0-44.0); Mean Cell Volume 83.2 fl (78-100); Mean Corpuscular Hemoglobin 26.4 pg (26-32); Mean Corpuscular Hgb Concent. 31.7 g/dl (32-36); Mean Platelet Volume 10.8 fl (7.5-11.0); Monocyte (Absolute #) 1.46 (0.0-1.3); Monocytes % 9.6 % (0.0-12.0); Neutrophil % 84.4 % (36.0-66.0); Platelet Count 218 K/mm3 (150-450); Red Blood Count 5.12 M/mm3 (4.1-5.6); Red Cell Distribution Width 16.7 % (11.5-14.0); White Blood Count 15.2 K/mm3 (4.0-10.5)
--- NOTE | 2020-04-25 08:43 | PCM.HP ---
History of Present Illness - Chief Complaint Chief Complaint: LEFT LOWER LEG CELLULITIS History of Present Illness: is a 64 year old male pt of mine from [facility] with diabetes who came to ER c/o 3d of LLE edema, erythema, and pain. No fever at home, but Tmax of 100.2 here. Denies vomiting or diarrhea. Started on IV vancomycin and zosyn in the ER. On dilaudid 0.5mg IV q6h but pain is still 8/10. BS have been in the 100s at home (sees Dr. Molina). Tolerating po; eating breakfast this morning. Couldn't sleep well last night. In ER, CT LLE indicated inflammation vs infection. DVT neg per u/s. - Review of Systems Musculoskeletal: Arthralgias Skin: Cellulitis All Other Systems: Reviewed and Negative Medications & Allergies Home Medications: Home Medication List Simvastatin 20Mg [Zocor 20Mg] 40 mg PO QHS 11/21/11 [History Confirmed 04/24/20] Amlodipine Besylate 5 mg [Norvasc 5 mg] 10 mg PO DAILY 06/06/18 [History Confirmed 04/24/20] Carvedilol 12.5 mg [Coreg 12.5 mg] 12.5 mg PO BID 06/06/18 [History Confirmed 04/24/20] Hydrochlorothiazide 12.5 mg PO DAILY 06/06/18 [History Confirmed 04/24/20] Metformin HCl 1,000 mg PO BID 06/06/18 [History Confirmed 04/24/20] lisinopriL [Lisinopril] 20 mg PO DAILY 05/26/19 [History Confirmed 04/24/20] Empagliflozin [Jardiance] 25 mg PO DAILY 02/18/20 [History Confirmed 04/24/20] Furosemide 20 mg [Lasix 20 mg] 20 mg PO DAILY 02/18/20 [History Confirmed 04/24/20] Semaglutide [Ozempic] 0.25 mg IM WEEKLY 02/18/20 [History Confirmed 04/24/20] Aspirin 81 gm Chew [Baby Aspirin 81 mg Chew] 81 mg PO DAILY 04/24/20 [History Confirmed 04/24/20] Insulin Aspart [Novolog] 1 units SQ UD 04/24/20 [History Confirmed 04/24/20] Allergies/Adverse Reactions: Allergies Allergy/AdvReac Type Severity Reaction Status Date / Time bacitracin [From Neosporin] Allergy Mild Blisters Verified 04/24/20 09:04 bacitracin zinc Allergy Mild Blisters Verified 04/24/20 09:04 [From Neosporin] benzalkonium chloride Allergy Mild Blisters Verified 04/24/20 09:04 [From Neosporin] gramicidin D [From Neosporin] Allergy Mild Blisters Verified 04/24/20 09:04 hydrocortisone Allergy Mild Blisters Verified 04/24/20 09:04 [From Neosporin] neomycin sulfate Allergy Mild Blisters Verified 04/24/20 09:04 [From Neosporin] polymyxin B [From Neosporin] Allergy Mild Blisters Verified 04/24/20 09:04 polymyxin B sulfate Allergy Mild Blisters Verified 04/24/20 09:04 [From Neosporin] liraglutide [From Victoza] Allergy Verified 04/24/20 09:04 morphine AdvReac Intermediate Verified 04/24/20 09:04 - Past Medical History Past Medical History: Yes Neurological History: Peripheral Neuropathy ENT History: No Pertinent History Cardiac History: Coronary Artery Disease, High Cholesterol, Hypertension Respiratory History: No Pertinent History Endocrine Medical History: Diabetes Type II Musculoskelatal History: Arthritis, Other GI Medical History: No Pertinent History History: No Pertinent History Pyscho-Social History: No Pertinent History Male Reproductive Disorders: No Pertinent History Comment: CARPAL TUNNEL - Past Surgical History Past Surgical History: Yes Neuro Surgical History: No Pertinent History Cardiac History: Cardiac Catheterization Respiratory Surgery: No Pertinent History GI Surgical History: Cholecystectomy Genitourinary Surgical Hx: No Pertinent History Musculskeletal Surgical Hx: Orthopedic Surgery Male Surgical History: No Pertinent History Other Surgical History: Choly, bilateral legs - Social History Smoking Status: Never smoker Exposure to second hand smoke: Yes Alcohol: None Drug Use: none - Physical Exam Vital Signs: Vital Signs - 24 hr Temp Pulse Resp BP Pulse Ox 04/25/20 07:30 97.6 F 75 18 129/61 95 04/25/20 03:50 98.3 F 72 20 110/62 96 04/24/20 23:48 100.2 F 89 24 115/63 95 10/11/20 20:17 98.9 F 101 H 22 139/63 97 04/24/20 15:49 97.8 F 92 H 20 126/74 93 L 04/24/20 14:00 20 126/74 93 L 04/24/20 13:21 97 04/24/20 13:00 20 134/73 93 L 04/24/20 11:48 92 H 18 120/65 95 04/24/20 10:20 90 18 125/68 96 04/24/20 08:55 97.8 F 93 H 18 143/75 97 General Appearance: no apparent distress, obese Neurologic Exam: alert, oriented x 3, cooperative Eye Exam: eyes nml inspection Ears, Nose, Throat Exam: moist mucous membranes Neck Exam: normal inspection, non-tender, No lymphadenopathy Respiratory Exam: normal breath sounds, lungs clear, No crackles/rales, No rhonchi, No wheezing Cardiovascular Exam: regular rate/rhythm, normal heart sounds, No murmur Gastrointestinal/Abdomen Exam: soft, normal bowel sounds, No tenderness, No mass, No guarding, No rebound Back Exam: normal inspection, No rash Extremity Exam: other (LLE inferior to knee there is marked erythema, with edema and medially bullae with serous fluid and yellow drainage. The erythema is marked from yesterday w a pen. RLE wnl) Wound Assessment: Skin/Wound Assessment Wound/Incision Assessment Start: 04/24/20 14:54 Text: Status: Active Freq: Q6H Protocol: Document 04/25/20 08:00 AR (Rec: 04/25/20 08:17 AR [id number]) Wound/Incision Assessment Left Lower Calf Wound Assessment Shift Assessment Wound Type cellulitis Wound Stage Non Pressure Wound Drainage Amount Moderate Drainage Description Yellow Comment LLE red and warm to touch with fluid-filled blisters noted- area marked. Some yellow drainage noted. BLE with chronic discoloration and scarring noted. Results - Labs Lab/Micro Results: Lab Results-Last 24 Hours 04/24/20 04/24/20 04/24/20 Range/Units 09:01 09:15 09:20 WBC 19.9 H (4.0-10.5) K/mm3 RBC 5.63 H (4.1-5.6) M/mm3 Hgb 14.9 (12.5-18.0) gm/dl Hct 46.4 (42-50) % MCV 82.4 (78-100) fl MCH 26.5 (26-32) pg MCHC 32.1 (32-36) g/dl RDW 17.0 H (11.5-14.0) % Plt Count 232 (150-450) K/mm3 MPV 10.4 (7.5-11.0) fl Gran % 91.4 H (36.0-66.0) % Eos # (Auto) 0 (0-0.5) Absolute Lymphs (auto) 0.60 L (1.0-4.6) Absolute Monos (auto) 1.12 (0.0-1.3) Lymphocytes % 3.0 L (24.0-44.0) % Monocytes % 5.6 (0.0-12.0) % Eosinophils % 0.0 (0.00-5.0) % Basophils % 0.0 (0.0-0.4) % Absolute Granulocytes 18.15 H (1.4-6.9) Basophils # 0 (0-0.4) Sodium (137-145) mmol/L Potassium (3.5-5.1) mmol/L Chloride (98-107) mmol/L Carbon Dioxide (22-30) mmol/L Anion Gap (5-15) MEQ/L BUN (9-20) mg/dL Creatinine (0.66-1.25) mg/dL Estimated GFR ML/MIN Glucose (74-106) mg/dL POC Glucometer (74 to 106) mg/dL Hemoglobin A1c (4.5-6.0) % Lactic Acid 1.7 (0.4-2.0) Calcium (8.4-10.2) mg/dL Total Bilirubin (0.2-1.3) mg/dL AST (17-59) U/L ALT (0-50) U/L Alkaline Phosphatase (38-126) U/L Serum Total Protein (6.3-8.2) g/dL Albumin (3.5-5.0) g/dL Urine Color YELLOW (YELLOW) Urine Appearance SLIGHTLY CLOUDY (CLEAR) Urine pH 5.0 (5-6) Ur Specific Frederick 1.023 (1.005-1.025) Urine Protein 30 (Negative) Urine Ketones MODERATE (NEGATIVE) Urine Blood NEGATIVE (0-5) Juan Manuel/ul Urine Nitrite NEGATIVE (NEGATIVE) Urine Bilirubin NEGATIVE (NEGATIVE) Urine Urobilinogen NEGATIVE (0-1) mg/dL Ur Leukocyte Esterase NEGATIVE (NEGATIVE) Urine WBC (Auto) 0-2 (0-5) /HPF Urine RBC (Auto) NONE (0-2) /HPF U Epithel Cells (Auto) NONE (FEW) /HPF Urine Bacteria (Auto) NONE (NEGATIVE) /HPF Urine Mucus (Auto) SLIGHT (NEGATIVE) /HPF Urine Culture Reflexed NO (NO) Urine Glucose >=500 (NEGATIVE) mg/dL 04/24/20 04/24/20 04/24/20 Range/Units 09:20 15:05 16:46 WBC (4.0-10.5) K/mm3 RBC (4.1-5.6) M/mm3 Hgb (12.5-18.0) gm/dl Hct (42-50) % MCV (78-100) fl MCH (26-32) pg MCHC (32-36) g/dl RDW (11.5-14.0) % Plt Count (150-450) K/mm3 MPV (7.5-11.0) fl Gran % (36.0-66.0) % Eos # (Auto) (0-0.5) Absolute Lymphs (auto) (1.0-4.6) Absolute Monos (auto) (0.0-1.3) Lymphocytes % (24.0-44.0) % Monocytes % (0.0-12.0) % Eosinophils % (0.00-5.0) % Basophils % (0.0-0.4) % Absolute Granulocytes (1.4-6.9) Basophils # (0-0.4) Sodium 131 L (137-145) mmol/L Potassium 4.3 (3.5-5.1) mmol/L Chloride 93 L (98-107) mmol/L Carbon Dioxide 26 (22-30) mmol/L Anion Gap 15.7 H (5-15) MEQ/L BUN 32 H (9-20) mg/dL Creatinine 1.06 (0.66-1.25) mg/dL Estimated GFR > 60.0 ML/MIN Glucose 96 (74-106) mg/dL POC Glucometer 122 H (74 to 106) mg/dL Hemoglobin A1c 5.52 (4.5-6.0) % Lactic Acid (0.4-2.0) Calcium 9.3 (8.4-10.2) mg/dL Total Bilirubin 1.60 H (0.2-1.3) mg/dL AST 53 (17-59) U/L ALT 52 H (0-50) U/L Alkaline Phosphatase 108 (38-126) U/L Serum Total Protein 7.4 (6.3-8.2) g/dL Albumin 4.2 (3.5-5.0) g/dL Urine Color (YELLOW) Urine Appearance (CLEAR) Urine pH (5-6) Ur Specific Frederick (1.005-1.025) Urine Protein (Negative) Urine Ketones (NEGATIVE) Urine Blood (0-5) Juan Manuel/ul Urine Nitrite (NEGATIVE) Urine Bilirubin (NEGATIVE) Urine Urobilinogen (0-1) mg/dL Ur Leukocyte Esterase (NEGATIVE) Urine WBC (Auto) (0-5) /HPF Urine RBC (Auto) (0-2) /HPF U Epithel Cells (Auto) (FEW) /HPF Urine Bacteria (Auto) (NEGATIVE) /HPF Urine Mucus (Auto) (NEGATIVE) /HPF Urine Culture Reflexed (NO) Urine Glucose (NEGATIVE) mg/dL 04/24/20 04/25/20 04/25/20 Range/Units 21:43 04:55 04:55 WBC 15.2 H (4.0-10.5) K/mm3 RBC 5.12 (4.1-5.6) M/mm3 Hgb 13.5 (12.5-18.0) gm/dl Hct 42.6 (42-50) % MCV 83.2 (78-100) fl MCH 26.4 (26-32) pg MCHC 31.7 L (32-36) g/dl RDW 16.7 H (11.5-14.0) % Plt Count 218 (150-450) K/mm3 MPV 10.8 (7.5-11.0) fl Gran % 84.4 H (36.0-66.0) % Eos # (Auto) 0.06 (0-0.5) Absolute Lymphs (auto) 0.83 L (1.0-4.6) Absolute Monos (auto) 1.46 H (0.0-1.3) Lymphocytes % 5.5 L (24.0-44.0) % Monocytes % 9.6 (0.0-12.0) % Eosinophils % 0.4 (0.00-5.0) % Basophils % 0.1 (0.0-0.4) % Absolute Granulocytes 12.83 H (1.4-6.9) Basophils # 0.02 (0-0.4) Sodium 132 L (137-145) mmol/L Potassium 3.4 L D (3.5-5.1) mmol/L Chloride 99 (98-107) mmol/L Carbon Dioxide 29 (22-30) mmol/L Anion Gap 7.8 (5-15) MEQ/L BUN 27 H (9-20) mg/dL Creatinine 1.07 (0.66-1.25) mg/dL Estimated GFR > 60.0 ML/MIN Glucose 68 L (74-106) mg/dL POC Glucometer 127 H (74 to 106) mg/dL Hemoglobin A1c (4.5-6.0) % Lactic Acid (0.4-2.0) Calcium 8.7 (8.4-10.2) mg/dL Total Bilirubin 0.90 (0.2-1.3) mg/dL AST 36 (17-59) U/L ALT 42 (0-50) U/L Alkaline Phosphatase 91 (38-126) U/L Serum Total Protein 6.2 L (6.3-8.2) g/dL Albumin 3.4 L (3.5-5.0) g/dL Urine Color (YELLOW) Urine Appearance (CLEAR) Urine pH (5-6) Ur Specific Frederick (1.005-1.025) Urine Protein (Negative) Urine Ketones (NEGATIVE) Urine Blood (0-5) Juan Manuel/ul Urine Nitrite (NEGATIVE) Urine Bilirubin (NEGATIVE) Urine Urobilinogen (0-1) mg/dL Ur Leukocyte Esterase (NEGATIVE) Urine WBC (Auto) (0-5) /HPF Urine RBC (Auto) (0-2) /HPF U Epithel Cells (Auto) (FEW) /HPF Urine Bacteria (Auto) (NEGATIVE) /HPF Urine Mucus (Auto) (NEGATIVE) /HPF Urine Culture Reflexed (NO) Urine Glucose (NEGATIVE) mg/dL 04/25/20 Range/Units 07:13 WBC (4.0-10.5) K/mm3 RBC (4.1-5.6) M/mm3 Hgb (12.5-18.0) gm/dl Hct (42-50) % MCV (78-100) fl MCH (26-32) pg MCHC (32-36) g/dl RDW (11.5-14.0) % Plt Count (150-450) K/mm3 MPV (7.5-11.0) fl Gran % (36.0-66.0) % Eos # (Auto) (0-0.5) Absolute Lymphs (auto) (1.0-4.6) Absolute Monos (auto) (0.0-1.3) Lymphocytes % (24.0-44.0) % Monocytes % (0.0-12.0) % Eosinophils % (0.00-5.0) % Basophils % (0.0-0.4) % Absolute Granulocytes (1.4-6.9) Basophils # (0-0.4) Sodium (137-145) mmol/L Potassium (3.5-5.1) mmol/L Chloride (98-107) mmol/L Carbon Dioxide (22-30) mmol/L Anion Gap (5-15) MEQ/L BUN (9-20) mg/dL Creatinine (0.66-1.25) mg/dL Estimated GFR ML/MIN Glucose (74-106) mg/dL POC Glucometer 85 (74 to 106) mg/dL Hemoglobin A1c (4.5-6.0) % Lactic Acid (0.4-2.0) Calcium (8.4-10.2) mg/dL Total Bilirubin (0.2-1.3) mg/dL AST (17-59) U/L ALT (0-50) U/L Alkaline Phosphatase (38-126) U/L Serum Total Protein (6.3-8.2) g/dL Albumin (3.5-5.0) g/dL Urine Color (YELLOW) Urine Appearance (CLEAR) Urine pH (5-6) Ur Specific Frederick (1.005-1.025) Urine Protein (Negative) Urine Ketones (NEGATIVE) Urine Blood (0-5) Juan Manuel/ul Urine Nitrite (NEGATIVE) Urine Bilirubin (NEGATIVE) Urine Urobilinogen (0-1) mg/dL Ur Leukocyte Esterase (NEGATIVE) Urine WBC (Auto) (0-5) /HPF Urine RBC (Auto) (0-2) /HPF U Epithel Cells (Auto) (FEW) /HPF Urine Bacteria (Auto) (NEGATIVE) /HPF Urine Mucus (Auto) (NEGATIVE) /HPF Urine Culture Reflexed (NO) Urine Glucose (NEGATIVE) mg/dL Accuchecks Date 04/25/20 Date 04/24/20 Time 07:30 Time 16:30 - Radiology Impressions Radiology Exams & Impressions: Radiology Procedures Category Date Time Status LOWER EXTREMITY WO CONTRAST [CT] Stat Exams 04/24/20 10:57 Completed VENOUS UNILAT/LIMITED EXTREMIT [US] Stat Exams 04/24/20 11:31 Completed Assessment/Plan (1) Cellulitis of left leg Current Visit: Yes Status: Acute Assessment & Plan: On day #2 vanc and zosyn. 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
[2020-04-25] MEDS: Sodium Chloride 0.9% 1000 ML 1,000 ML IV SCH (09:18)
[2020-04-25] MEDS: VANCOMYCIN 1.5 GRAM/300 ML BAG 1.5 GM/300 ML PIGGYBACK IV SCH ×2 (09:19→23:16)
[2020-04-25] MEDS: ENOXAPARIN SODIUM SQ SCH (09:25)
[2020-04-25] MEDS: COREG 12.5 MG PO SCH ×2 (09:25→22:51)
[2020-04-25] MEDS: PROTONIX 40 MG IV IV SCH (09:25)
[2020-04-25] MEDS: Acidophilus TABLET PO SCH (09:25)
[2020-04-25] MEDS: DULCOLAX 5 MG PO SCH (09:27)
[2020-04-25] MEDS ORDERED: NON-FORMULARY ITEM (Semaglutide [Ozempic] 0.25 MG) IM SCH (11:00)
[2020-04-25] MEDS ORDERED: Glucophage 500 MG PO SCH (11:00)
[2020-04-25] MEDS ORDERED: MEDICATION INTERVENTION MC SCH (11:15)
[2020-04-25] MEDS: ECOTRIN 81 MG PO SCH (11:59)
[2020-04-25] MEDS: hydroDIURIL 25 MG PO SCH (11:59)
[2020-04-25] MEDS: NORVASC 5 MG PO SCH (11:59)
[2020-04-25] MEDS: Zestril 20 MG PO SCH (11:59)
[2020-04-25] MEDS: LASIX 20 MG PO SCH (11:59)
[2020-04-25] MEDS: ZOCOR 20MG PO SCH (22:50)
[2020-04-26] MEDS: Zosyn 3.375 GM Vial 3.375 GM in Sodium Chloride 100ML MINI-BAG PLUS 100 ML IV SCH ×5 (01:24→23:52)
[2020-04-26] MEDS: Sodium Chloride 0.9% 1000 ML 1,000 ML IV SCH (04:30)
[2020-04-26] MEDS: Hydromorphone 1 mg/ml Injection IV PRN ×2 (06:07→09:56)
[2020-04-26] MEDS ORDERED: Colace 100 MG PO PRN (08:38)
--- NOTE | 2020-04-26 08:38 | PCM.NOTE ---
Date and Time: 04/26/20 08 Subjective Assessment: Still having pain in the L leg, 01/21 this morning (just got pain meds). Yesterday the dilaudid was increased and that is helping, he says it does last until the next dose. Amber po. No complaints of constipation as yet. - Review of Systems Constitutional: No Fever Skin: Cellulitis Objective Exam General Appearance: no apparent distress, alert Neurologic Exam: oriented x 3, cooperative Skin Exam: other (LLE wrapped, but superior lower leg with decreased erythema compared with area that was marked on 04/24) Wound Assessment: Skin/Wound Assessment Wound/Incision Assessment Start: 04/24/20 14:54 Text: Status: Active Freq: Q6H Protocol: Document 04/26/20 02:00 LM (Rec: 04/26/20 02:31 LM [id number]) Wound/Incision Assessment Left Lower Calf Wound Assessment Shift Assessment Wound Type cellulitis Wound Stage Non Pressure Wound Drainage Amount Moderate Drainage Description Yellow Comment LLE red and warm to touch with fluid-filled blisters noted- area marked. Some yellow drainage noted. BLE with chronic discoloration and scarring noted. The markings on leg from 04/24/2020 at 1900 the wound appears to be within the markings still at this time. OBJECTIVE DATA Vital Signs: Vital Signs - 24 hr Temp Pulse Resp BP BP Pulse Ox 04/26/20 08:04 90 L 04/26/20 07:33 98.4 F 80 16 127/60 98 04/26/20 04:00 98.2 F 76 22 115/57 94 L 04/26/20 00:00 98 F 82 18 129/60 94 L 04/25/20 21:09 94 L 04/25/20 20:00 98.4 F 88 20 132/59 93 L 04/25/20 16:00 99.3 F 85 18 115/56 93 L 04/25/20 13:15 94 L 04/25/20 13:10 87 L 04/25/20 12:00 98.8 F 82 18 139/65 93 L 04/25/20 10:59 93 L Pain Assessment - Last Documented Pain Intensity 7 Pain Scale Used 0-10 Pain Scale Intake and Output: Intake & Output 04/23/20 04/24/20 04/25/20 04/26/20 11:59 11:59 11:59 11:59 Intake Total 1340 3562 Output Total 1050 1800 Balance 290 1762 Weight 126.552 kg 121.6 kg 123 kg Lab Results: Lab Results-Last 24 Hours 04/25/20 04/25/20 04/25/20 Range/Units 11:55 17:13 20:40 POC Glucometer 193 H 174 H 215 H (74 to 106) mg/dL 04/26/20 Range/Units 07:11 POC Glucometer 167 H (74 to 106) mg/dL Radiology Exams: Radiology Procedures Category Date Time Status LOWER EXTREMITY WO CONTRAST [CT] Stat Exams 04/24/20 10:57 Completed VENOUS UNILAT/LIMITED EXTREMIT [US] Stat Exams 04/24/20 11:31 Completed Multi-Disciplinary Progress Notes: Multi-Disciplinary Progress Notes 04/25/20 13:15 (created 04/25/20 15:06) Respiratory Note by Dione Mcfarland PT'S O2 SAT ON ROOM AIR WHILE AT REST WAS 87%. PT WAS THEN PLACED ON 2LPM NASAL CANNULA. O2 SAT INCREASED TO 94%. NURSE AWARE. Initialized on 04/25/20 15:06 - END OF NOTE Assessment/Plan (1) Cellulitis of left leg Current Visit: Yes Status: Acute Assessment & Plan: On vancomycin and zosyn day #3. Pt realizes it may take several more days to see marked improvement. On dilauded for pain currently, so will add prn stool softeners. 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 Molina. Code(s): E11.9 - TYPE 2 DIABETES MELLITUS WITHOUT COMPLICATIONS
[2020-04-26] MEDS ORDERED: TROUGH DRUG LEVELS IJ ONE (09:30)
[2020-04-26] MEDS: Acidophilus TABLET PO SCH (09:49)
[2020-04-26] MEDS: Zestril 20 MG PO SCH (09:49)
[2020-04-26] MEDS: NORVASC 5 MG PO SCH (09:49)
[2020-04-26] MEDS: DULCOLAX 5 MG PO SCH (09:49)
[2020-04-26] MEDS: hydroDIURIL 25 MG PO SCH (09:49)
[2020-04-26] MEDS: ECOTRIN 81 MG PO SCH (09:49)
[2020-04-26] MEDS: LASIX 20 MG PO SCH (09:49)
[2020-04-26] MEDS: COREG 12.5 MG PO SCH ×2 (09:49→21:36)
[2020-04-26] MEDS: PROTONIX 40 MG IV IV SCH (09:49)
[2020-04-26] MEDS: ENOXAPARIN SODIUM SQ SCH (09:50)
[2020-04-26] MEDS: PATIENT OWN MEDICATION SQ SCH (09:50)
[2020-04-26] MEDS ORDERED: NON-FORMULARY ITEM (Empagliflozin [Jardiance] 25 MG) PO SCH (10:00)
[2020-04-26] MEDS ORDERED: BABY ASPIRIN 81 MG CHEW PO SCH (10:00)
[2020-04-26] MEDS: DILAUDID 1 MG/1ML PCA IV PRN (10:45)
[2020-04-26] MEDS: VANCOMYCIN 1.5 GRAM/300 ML BAG 1.5 GM/300 ML PIGGYBACK IV SCH ×2 (11:42→21:32)
[2020-04-26] MEDS: ZOCOR 20MG PO SCH (21:36)
[2020-04-27] MEDS: TYLENOL 325 MG PO PRN (03:05)
[2020-04-27 05:07] LABS: Hematocrit 41.3 % (42-50); Hemoglobin 12.9 gm/dl (12.5-18.0); Mean Cell Volume 84.1 fl (78-100); Mean Corpuscular Hemoglobin 26.3 pg (26-32); Mean Corpuscular Hgb Concent. 31.2 g/dl (32-36); Mean Platelet Volume 10.6 fl (7.5-11.0); Platelet Count 266 K/mm3 (150-450); Red Blood Count 4.91 M/mm3 (4.1-5.6); Red Cell Distribution Width 16.6 % (11.5-14.0); White Blood Count 12.4 K/mm3 (4.0-10.5)
[2020-04-27 05:23] LABS: ANION GAP 7.9 MEQ/L (5-15); BLOOD UREA NITROGEN 18 mg/dL (9-20); CHLORIDE 100 mmol/L (98-107); Calcium 8.5 mg/dL (8.4-10.2); Carbon Dioxide 29 mmol/L (22-30); Creatinine 1 0.94 mg/dL (0.66-1.25); EST GLOMERULAR FILTRATION RATE > 60.0 ML/MIN; Glucose 96 mg/dL (74-106); Potassium 3.3 mmol/L (3.5-5.1); SODIUM 133 mmol/L (137-145)
[2020-04-27] MEDS: Zosyn 3.375 GM Vial 3.375 GM in Sodium Chloride 100ML MINI-BAG PLUS 100 ML IV SCH ×4 (05:27→23:49)
--- NOTE | 2020-04-27 09:17 | PCM.NOTE ---
Date and Time: 04/27/20912 Subjective Assessment: Leg still painful, but somewhat better. Amber po. No BM as yet. - Review of Systems Constitutional: No Fever Skin: Cellulitis Objective Exam General Appearance: no apparent distress, alert Neurologic Exam: oriented x 3, cooperative Skin Exam: warm, dry, other (LLE wrapped, dry) Wound Assessment: Skin/Wound Assessment Wound/Incision Assessment Start: 04/24/20 14:54 Text: Status: Active Freq: Q6H Protocol: Document 04/27/20 07:59 BSANTUS (Rec: 04/27/20 08:26 BSANTUS [id number]) Wound/Incision Assessment Left Lower Calf Wound Assessment Shift Assessment Wound Type cellulitis Wound Stage Non Pressure Wound Drainage Amount Moderate Drainage Description Yellow Comment LLE red and warm to touch with fluid-filled blisters noted- area marked. Some yellow drainage noted. BLE with chronic discoloration and scarring noted. The markings on leg from 04/24/2020 at 0800 04/27 the wound appears to be below the markings. wound not unwrapped Wound Photo Photo Taken No Ears, Nose, Throat Exam: moist mucous membranes Neck Exam: normal inspection Respiratory Exam: normal breath sounds, lungs clear, No crackles/rales, No rhonchi, No wheezing Cardiovascular Exam: regular rate/rhythm, normal heart sounds, No murmur Gastrointestinal/Abdomen Exam: soft, normal bowel sounds, No tenderness Extremity Exam: other (see skin exam) Back Exam: normal inspection, No rash OBJECTIVE DATA Vital Signs: Vital Signs - 24 hr Temp Pulse Resp BP Pulse Ox 04/27/20 07:10 98.1 F 70 22 136/62 95 04/27/20 07:09 92 L 04/27/20 06:45 95 04/27/20 04:21 97.8 F 73 22 109/74 95 04/27/20 02:45 95 04/26/20 23:33 98.9 F 77 26 H 103/53 94 L 04/26/20 22:45 93 L 04/26/20 19:39 98.8 F 86 28 H 129/58 93 L 04/26/20 16:00 80 22 156/66 98 04/26/20 12:00 97.9 F 90 18 145/65 97 04/26/20 10:29 94 L Pain Assessment - Last Documented Pain Intensity 6 Pain Scale Used FLACC Intake and Output: Intake & Output 04/24/20 04/25/20 04/26/20 04/27/20 11:59 11:59 11:59 11:59 Intake Total 1340 3802 3634 Output Total 1050 1800 3150 Balance 290 2001 484 Weight 126.552 kg 121.6 kg 123 kg 122.6 kg Lab Results: Lab Results-Last 24 Hours 04/26/20 04/26/20 04/26/20 Range/Units 09:30 11:02 16:30 WBC (4.0-10.5) K/mm3 RBC (4.1-5.6) M/mm3 Hgb (12.5-18.0) gm/dl Hct (42-50) % MCV (78-100) fl MCH (26-32) pg MCHC (32-36) g/dl RDW (11.5-14.0) % Plt Count (150-450) K/mm3 MPV (7.5-11.0) fl Sodium (137-145) mmol/L Potassium (3.5-5.1) mmol/L Chloride (98-107) mmol/L Carbon Dioxide (22-30) mmol/L Anion Gap (5-15) MEQ/L BUN (9-20) mg/dL Creatinine (0.66-1.25) mg/dL Estimated GFR ML/MIN Glucose (74-106) mg/dL POC Glucometer 220 H 147 H (74 to 106) mg/dL Calcium (8.4-10.2) mg/dL Vancomycin Trough 12.23 (10-20) ug/mL 04/26/20 04/27/20 04/27/20 Range/Units 20:43 04:50 04:50 WBC 12.4 H (4.0-10.5) K/mm3 RBC 4.91 (4.1-5.6) M/mm3 Hgb 12.9 (12.5-18.0) gm/dl Hct 41.3 L (42-50) % MCV 84.1 (78-100) fl MCH 26.3 (26-32) pg MCHC 31.2 L (32-36) g/dl RDW 16.6 H (11.5-14.0) % Plt Count 266 (150-450) K/mm3 MPV 10.6 (7.5-11.0) fl Sodium 133 L (137-145) mmol/L Potassium 3.3 L (3.5-5.1) mmol/L Chloride 100 (98-107) mmol/L Carbon Dioxide 29 (22-30) mmol/L Anion Gap 7.9 (5-15) MEQ/L BUN 18 (9-20) mg/dL Creatinine 0.94 (0.66-1.25) mg/dL Estimated GFR > 60.0 ML/MIN Glucose 96 (74-106) mg/dL POC Glucometer 149 H (74 to 106) mg/dL Calcium 8.5 (8.4-10.2) mg/dL Vancomycin Trough (10-20) ug/mL 04/27/20 Range/Units 06:51 WBC (4.0-10.5) K/mm3 RBC (4.1-5.6) M/mm3 Hgb (12.5-18.0) gm/dl Hct (42-50) % MCV (78-100) fl MCH (26-32) pg MCHC (32-36) g/dl RDW (11.5-14.0) % Plt Count (150-450) K/mm3 MPV (7.5-11.0) fl Sodium (137-145) mmol/L Potassium (3.5-5.1) mmol/L Chloride (98-107) mmol/L Carbon Dioxide (22-30) mmol/L Anion Gap (5-15) MEQ/L BUN (9-20) mg/dL Creatinine (0.66-1.25) mg/dL Estimated GFR ML/MIN Glucose (74-106) mg/dL POC Glucometer 75 (74 to 106) mg/dL Calcium (8.4-10.2) mg/dL Vancomycin Trough (10-20) ug/mL Multi-Disciplinary Progress Notes: Multi-Disciplinary Progress Notes 04/26/20 12:38 Physical Therapy Note by Maricruz Haq Pt was seen by PT this AM for wound care. Brooke LE was still dressed from yesterday. Pt was receiving vancomycin and dilaudid for pain. He was lying in bed with L LE elevated on a pillow. No drainage had come through the coban. Dressing was removed, max yellow drainage present on kerlix. L LE was less red and edema had decreased from yesterday. L LE calf and foot was cleansed with hibiclens. L LE was covered with barrier cream. ABD pad was applied to open area on the lateral side of L calf. Kerlix was applied to L LE and coban anchored the dressing. Pt noted pain in the leg, but did not complain of pain with dressing change. Dressing will be changed tomorrow if needed. Maricruz Haq, PT Initialized on 04/26/20 12:38 - END OF NOTE 04/26/20 11:09 Case Management Note by Catarina Gama SPOKE WITH PT, CONTINUES TO DENY D/C NEEDS. WILL CONTINUE TO FOLLOW NEEDED. Initialized on 04/26/20 11:09 - END OF NOTE Assessment/Plan (1) Cellulitis of left leg Current Visit: Yes Status: Acute Assessment & Plan: Slow improvement day to day. Change from IV to po pain meds. On IV vancomycin and zosyn. Add miralax for stools. 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
[2020-04-27] MEDS: VANCOMYCIN 1.5 GRAM/300 ML BAG 1.5 GM/300 ML PIGGYBACK IV SCH ×2 (10:10→21:30)
[2020-04-27] MEDS: ENOXAPARIN SODIUM SQ SCH (10:10)
[2020-04-27] MEDS: PROTONIX 40 MG IV IV SCH (10:10)
[2020-04-27] MEDS: hydroDIURIL 25 MG PO SCH (10:11)
[2020-04-27] MEDS: DULCOLAX 5 MG PO SCH (10:11)
[2020-04-27] MEDS: Zestril 20 MG PO SCH (10:11)
[2020-04-27] MEDS: NORVASC 5 MG PO SCH (10:11)
[2020-04-27] MEDS: ECOTRIN 81 MG PO SCH (10:11)
[2020-04-27] MEDS: Acidophilus TABLET PO SCH (10:12)
[2020-04-27] MEDS: LASIX 20 MG PO SCH (10:12)
[2020-04-27] MEDS: COREG 12.5 MG PO SCH ×2 (10:12→21:34)
[2020-04-27] MEDS: Miralax Powder 17GM PACKET PO SCH (10:15)
[2020-04-27] MEDS: Sodium Chloride 0.9% 1000 ML 1,000 ML IV SCH (10:29)
[2020-04-27] MEDS: OXYCODONE-ACETAMINOPHEN 10-325 PO PRN ×3 (10:57→22:08)
[2020-04-27] MEDS: DILAUDID 1 MG/1ML PCA IV PRN (11:04)
[2020-04-27] MEDS: ZOCOR 20MG PO SCH (21:34)
[2020-04-28] MEDS: OXYCODONE-ACETAMINOPHEN 10-325 PO PRN ×5 (02:54→21:32)
[2020-04-28 04:56] LABS: Hematocrit 40.4 % (42-50); Hemoglobin 12.6 gm/dl (12.5-18.0); Mean Cell Volume 84.5 fl (78-100); Mean Corpuscular Hemoglobin 26.4 pg (26-32); Mean Corpuscular Hgb Concent. 31.2 g/dl (32-36); Mean Platelet Volume 10.3 fl (7.5-11.0); Platelet Count 315 K/mm3 (150-450); Red Blood Count 4.78 M/mm3 (4.1-5.6); Red Cell Distribution Width 16.4 % (11.5-14.0); White Blood Count 10.1 K/mm3 (4.0-10.5)
[2020-04-28] MEDS: Sodium Chloride 0.9% 1000 ML 1,000 ML IV SCH ×2 (04:57→21:34)
[2020-04-28 05:15] LABS: ALBUMIN 3.2 g/dL (3.5-5.0); ALKALINE PHOSPHATASE 174 U/L (38-126); BLOOD UREA NITROGEN 14 mg/dL (9-20); CHLORIDE 102 mmol/L (98-107); Calcium 8.5 mg/dL (8.4-10.2); Carbon Dioxide 30 mmol/L (22-30); Creatinine 1 0.87 mg/dL (0.66-1.25); EST GLOMERULAR FILTRATION RATE > 60.0 ML/MIN; Glucose 64 mg/dL (74-106); SGOT/AST 30 U/L (17-59); SGPT/ALT 41 U/L (0-50); SODIUM 137 mmol/L (137-145); Total Protein 6.1 g/dL (6.3-8.2)
[2020-04-28 05:17] LABS: Potassium 3.2 mmol/L (3.5-5.1)
[2020-04-28 05:20] LABS: ANION GAP 8.2 MEQ/L (5-15)
[2020-04-28 05:50] LABS: Basophil 2 % (0.0-1.0); Eosinophil 3 % (0.00-3.0); Lymphocytes 15 % (24-44); Monocyte 4 % (0.0-12.0); Neutrophils 76 % (36.-66.); Platelet Estimate NORMAL (NORMAL); Total Cells Counted 100
[2020-04-28] MEDS: Zosyn 3.375 GM Vial 3.375 GM in Sodium Chloride 100ML MINI-BAG PLUS 100 ML IV SCH ×3 (06:15→18:34)
--- NOTE | 2020-04-28 09:28 | PCM.NOTE ---
Date and Time: 04/28/20924 Subjective Assessment: Pt currently c/o 6/10 leg pain, but was just up on the leg to go to the bathroom and just received pain meds. Says the oral pain med is helping. - Review of Systems Constitutional: No Fever Abdominal/Gastrointestinal: No Vomiting Objective Exam General Appearance: mild distress (due to leg pain), alert Neurologic Exam: oriented x 3, cooperative Skin Exam: normal color, warm, dry, No rash Wound Assessment: Skin/Wound Assessment Wound/Incision Assessment Start: 04/24/20 14:54 Text: Status: Active Freq: Q6H Protocol: Document 04/28/20 08:00 RDUHNE (Rec: 04/28/20 08:05 RDUHNE [id number]) Wound/Incision Assessment Left Lower Calf Wound Assessment Shift Assessment Wound Type cellulitis Wound Stage Non Pressure Wound Drainage Amount Minimal Drainage Description Yellow Comment LLE cellulitis wrapped per PT. Edema noted at edges of dressing. remains true Wound Photo Photo Taken No Eye Exam: eyes nml inspection Respiratory Exam: normal breath sounds, lungs clear, No crackles/rales, No rhonchi, No wheezing Cardiovascular Exam: regular rate/rhythm, normal heart sounds, No murmur Extremity Exam: other (LLE wrapped; proximally there is less erythema) OBJECTIVE DATA Vital Signs: Vital Signs - 24 hr Temp Pulse Resp BP Pulse Ox 04/28/20 07:45 98 F 74 18 138/65 93 L 04/28/20 07:08 93 L 04/28/20 04:10 98.2 F 70 24 126/68 93 L 04/28/20 00:00 98.1 F 74 20 112/55 95 04/27/20 20:00 97.6 F 75 25 H 117/58 95 04/27/20 19:27 94 L 04/27/20 16:00 97.7 F 71 18 113/59 95 04/27/20 11:50 98.4 F 78 20 132/60 94 L 04/27/20 11:04 95 Pain Assessment - Last Documented Pain Intensity 6 Pain Scale Used 0-10 Pain Scale Intake and Output: Intake & Output 04/25/20 04/26/20 04/27/20 04/28/20 11:59 11:59 11:59 11:59 Intake Total 1340 3802 3874 3144 Output Total 1050 1800 3650 1075 Balance 290 2001 Weight 121.6 kg 123 kg 122.6 kg 122.5 kg Lab Results: Lab Results-Last 24 Hours 04/27/20 04/27/20 04/27/20 Range/Units 11:46 16:48 21:32 WBC (4.0-10.5) K/mm3 RBC (4.1-5.6) M/mm3 Hgb (12.5-18.0) gm/dl Hct (42-50) % MCV (78-100) fl MCH (26-32) pg MCHC (32-36) g/dl RDW (11.5-14.0) % Plt Count (150-450) K/mm3 MPV (7.5-11.0) fl Segmented Neutrophils (36.-66.) % Lymphocytes (Manual) (24-44) % Monocytes (Manual) (0.0-12.0) % Eosinophils (Manual) (0.00-3.0) % Basophils (Manual) (0.0-1.0) % Platelet Estimate (NORMAL) RBC Morphology Sodium (137-145) mmol/L Potassium (3.5-5.1) mmol/L Chloride (98-107) mmol/L Carbon Dioxide (22-30) mmol/L Anion Gap (5-15) MEQ/L BUN (9-20) mg/dL Creatinine (0.66-1.25) mg/dL Estimated GFR ML/MIN Glucose (74-106) mg/dL POC Glucometer 99 179 H 147 H (74 to 106) mg/dL Calcium (8.4-10.2) mg/dL Total Bilirubin (0.2-1.3) mg/dL AST (17-59) U/L ALT (0-50) U/L Alkaline Phosphatase (38-126) U/L Serum Total Protein (6.3-8.2) g/dL Albumin (3.5-5.0) g/dL 04/28/20 04/28/20 04/28/20 Range/Units 04:20 04:20 07:11 WBC 10.1 (4.0-10.5) K/mm3 RBC 4.78 (4.1-5.6) M/mm3 Hgb 12.6 (12.5-18.0) gm/dl Hct 40.4 L (42-50) % MCV 84.5 (78-100) fl MCH 26.4 (26-32) pg MCHC 31.2 L (32-36) g/dl RDW 16.4 H (11.5-14.0) % Plt Count 315 (150-450) K/mm3 MPV 10.3 (7.5-11.0) fl Segmented Neutrophils 76 H (36.-66.) % Lymphocytes (Manual) 15 L (24-44) % Monocytes (Manual) 4 (0.0-12.0) % Eosinophils (Manual) 3 (0.00-3.0) % Basophils (Manual) 2 H (0.0-1.0) % Platelet Estimate NORMAL (NORMAL) RBC Morphology NORMAL Sodium 137 (137-145) mmol/L Potassium 3.2 L (3.5-5.1) mmol/L Chloride 102 (98-107) mmol/L Carbon Dioxide 30 (22-30) mmol/L Anion Gap 8.2 (5-15) MEQ/L BUN 14 (9-20) mg/dL Creatinine 0.87 (0.66-1.25) mg/dL Estimated GFR > 60.0 ML/MIN Glucose 64 L (74-106) mg/dL POC Glucometer 89 (74 to 106) mg/dL Calcium 8.5 (8.4-10.2) mg/dL Total Bilirubin 0.80 (0.2-1.3) mg/dL AST 30 (17-59) U/L ALT 41 (0-50) U/L Alkaline Phosphatase 174 H (38-126) U/L Serum Total Protein 6.1 L (6.3-8.2) g/dL Albumin 3.2 L (3.5-5.0) g/dL Multi-Disciplinary Progress Notes: Multi-Disciplinary Progress Notes 04/27/20 15:14 Physical Therapy Note by Breana Parks PT. REPORTS CONT. L LL PN AT -01/21. CONT. W/ IV PN MEDS AND ANTIBIOTIC. LAYERED COMPRESSION DRESSING INTACT FROM YESTERDAY AND DRAINAGE CONTAINED WITHIN BANDAGE. UPON DRESSING REMOVAL, NOTED MODERATE BRIGHT GREEN DRAINAGE ON DRESSING. CONT. W/ OPEN AREAS MEDIAL LL D/T STASIS AND PRIOR BLISTERING. DID NOTE DECREASED LL EDEMA AND ERYTHEMA. LESS SEROUS DRAINAGE NOTED DURING DRESSING CHANGE TODAY. CLEANSED LL W/ HIBICLENS, APPLIED BARRIER AND ZINC OXIDE CREAM MIXTURE. DRESSED W/ ABD OVER MEDIAL WOUNDS, 2 LAYERS OF KERLIX AND COBAN FRO COMPRESSION AT ~ 50% STRETCH. CONT. TO ENCOURAGE LE ELEVATION TO ASSIST W/ VENOUS INSUFFICIENCY. PT. WILL NEED TO CONT. W/ EITHER OP PT OR WOUND CENTER FOR WOUND MG'T UPON D/C. BREANA PARKS, PT Initialized on 04/27/20 15:14 - END OF NOTE Assessment/Plan (1) Cellulitis of left leg Current Visit: Yes Status: Acute Assessment & Plan: slowly improving. I would like to be present or see of picture of the leg next time it is unwrapped, thank you. On Vanc and zosyn IV. Percocet po. WBC are normal today for the first time since admission. Code(s): L03.116 - CELLULITIS OF LEFT LOWER LIMB (2) Diabetes mellitus Current Visit: Yes Status: Chronic Qualifiers: Diabetes mellitus type: type 2 Diabetes mellitus skilled nursing insulin use: with termite technician use Diabetes mellitus complication status: with skin complications Diabetes mellitus complication detail: with other skin ulcer Qualified Code(s): E11.622 - Type 2 diabetes mellitus with other skin ulcer; Z79.4 - intermediate card tender (current) use of insulin Code(s): E11.9 - TYPE 2 DIABETES MELLITUS WITHOUT COMPLICATIONS (3) Hypokalemia Current Visit: Yes Status: Acute Code(s): E87.6 - HYPOKALEMIA
[2020-04-28] MEDS: Acidophilus TABLET PO SCH (10:22)
[2020-04-28] MEDS: COREG 12.5 MG PO SCH ×2 (10:22→21:30)
[2020-04-28] MEDS: DULCOLAX 5 MG PO SCH (10:22)
[2020-04-28] MEDS: ECOTRIN 81 MG PO SCH (10:23)
[2020-04-28] MEDS: hydroDIURIL 25 MG PO SCH (10:23)
[2020-04-28] MEDS: LASIX 20 MG PO SCH (10:24)
[2020-04-28] MEDS: PROTONIX 40 MG IV IV SCH (10:27)
[2020-04-28] MEDS: Klor Con 10 MEQ PO SCH ×2 (10:27→21:33)
[2020-04-28] MEDS: Zestril 20 MG PO SCH (10:27)
[2020-04-28] MEDS: Miralax Powder 17GM PACKET PO SCH (10:32)
[2020-04-28] MEDS: ENOXAPARIN SODIUM SQ SCH (10:32)
[2020-04-28] MEDS: NORVASC 5 MG PO SCH (10:36)
[2020-04-28] MEDS: VANCOMYCIN 1.5 GRAM/300 ML BAG 1.5 GM/300 ML PIGGYBACK IV SCH ×2 (10:37→21:30)
[2020-04-28] MEDS: Hydromorphone 1 mg/ml Injection IV PRN (14:45)
[2020-04-28] MEDS: PATIENT OWN MEDICATION SQ SCH (17:29)
[2020-04-28] MEDS: ZOCOR 20MG PO SCH (21:30)
[2020-04-28] MEDS: Valium 5 MG PO PRN (21:33)
[2020-04-29] MEDS: Zosyn 3.375 GM Vial 3.375 GM in Sodium Chloride 100ML MINI-BAG PLUS 100 ML IV SCH ×4 (00:16→18:48)
[2020-04-29] MEDS: OXYCODONE-ACETAMINOPHEN 10-325 PO PRN ×4 (03:50→22:47)
--- NOTE | 2020-04-29 08:57 | PCM.NOTE ---
Date and Time: 04/29/20851 Subjective Assessment: Pt has a lot of pain with dressing changes and debridement. Didn't have a good night; hard to sleep due to leg pain. Worse with being up on the leg and dressing change. Still no BM but passing lots of gas. - Review of Systems Constitutional: No Fever Skin: Cellulitis Objective Exam General Appearance: no apparent distress, alert Neurologic Exam: oriented x 3, cooperative Skin Exam: normal color, warm, dry, No rash Wound Assessment: Skin/Wound Assessment Wound/Incision Assessment Start: 04/24/20 14:54 Text: Status: Active Freq: Q6H Protocol: Document 04/29/20 02:00 KX (Rec: 04/29/20 02:52 KX [id number]) Wound/Incision Assessment Left Lower Calf Wound Assessment Shift Assessment Wound Type cellulitis Wound Stage Non Pressure Wound Dressing Status Dry & Intact Drainage Amount Minimal Drainage Description Yellow Comment LLE cellulitis wrapped per PT. Edema noted at edges of dressing. Drsg CDI. remains true Wound Photo Photo Taken No Eye Exam: eyes nml inspection Ears, Nose, Throat Exam: moist mucous membranes Respiratory Exam: normal breath sounds, lungs clear, No crackles/rales, No rhonchi, No wheezing Cardiovascular Exam: regular rate/rhythm, normal heart sounds, No murmur Gastrointestinal/Abdomen Exam: soft, normal bowel sounds, No tenderness, No mass, No guarding, No rebound Extremity Exam: other (LLE is wrapped; foot and area proximal to wrap are less erythematous and edematous) Back Exam: normal inspection, No rash OBJECTIVE DATA Vital Signs: Vital Signs - 24 hr Temp Pulse Resp BP Pulse Ox 04/29/20 08:00 97.2 F 66 20 140/65 95 04/29/20 06:51 93 L 04/29/20 04:25 98.5 F 73 24 119/58 93 L 04/29/20 00:04 98.6 F 72 28 H 124/56 95 04/28/20 20:01 98.6 F 77 18 127/60 94 L 04/28/20 16:00 97.6 F 79 19 133/60 95 04/28/20 11:54 97.9 F 75 21 141/62 95 Pain Assessment - Last Documented Pain Intensity 6 Pain Scale Used 0-10 Pain Scale Intake and Output: Intake & Output 04/26/20 04/27/20 04/28/20 04/29/20 11:59 11:59 11:59 11:59 Intake Total 3802 3874 3144 5309 Output Total 1800 3650 1075 1900 Balance 2001 224 2069 3409 Weight 123 kg 122.6 kg 122.5 kg Lab Results: Lab Results-Last 24 Hours 04/28/20 04/28/20 04/28/20 Range/Units 11:20 16:17 20:53 POC Glucometer 116 H 129 H 170 H (74 to 106) mg/dL 04/29/20 04/29/20 Range/Units 07:15 07:54 POC Glucometer 64 L 71 L (74 to 106) mg/dL Multi-Disciplinary Progress Notes: Multi-Disciplinary Progress Notes 04/29/20 08:49 Case Management Note by Catarina Gama SPOKE WITH PT THIS AM, WHEN D/C PT IS AGREEABLE TO OUTPATIENT WOUND CARE THROUGH [facility] HERE AT THIS HOSPITAL, HE HAS SEEN THEM PREVIOUSLY. DR AYALA REPORTS SHE WILL KEEP PT HERE AT HOSPITAL AT LEAST ONE MORE DAY, POSSIBLY UNTIL SATURDAY. Initialized on 04/29/20 08:49 - END OF NOTE 04/28/20 19:41 Respiratory Note by Barbara Marcano N/C 2LPM SPO2 93% Initialized on 04/28/20 19:41 - END OF NOTE 04/28/20 12:58 Respiratory Note by Dione Mcfarland PT'S O2 SAT ON ROOM AIR WHILE AT REST WAS 87%. PT WAS PLACED BACK ON 2LPM NASAL CANNULA. O2 SAT INCREASED TO 92%. Initialized on 04/28/20 12:58 - END OF NOTE Assessment/Plan (1) Cellulitis of left leg Current Visit: Yes Status: Acute Assessment & Plan: Pictures on the chart from yesterday, thank you! Does appear to be somewhat less erythema. Area of debridement is fresh with pink wound base. Report of green exudate prior to leg being cleaned. Needs to stay on IV vancomycin and zosyn, day #7, to cover for staph/strep and pseudomonas (with green exudate in this diabetic patient). He will at least need to stay for several more days on the IVs. His pain is also not well controlled; will add IV dilaudid prn with dressing changes in an effort to keep the pain lower throughout the day. 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
[2020-04-29] MEDS ORDERED: PATIENT OWN MEDICATION IM SCH (10:00)
[2020-04-29 10:17] LABS: BLOOD UREA NITROGEN 13 mg/dL (9-20); CHLORIDE 104 mmol/L (98-107); Calcium 8.6 mg/dL (8.4-10.2); Carbon Dioxide 31 mmol/L (22-30); Creatinine 1 0.94 mg/dL (0.66-1.25); EST GLOMERULAR FILTRATION RATE > 60.0 ML/MIN; Glucose 167 mg/dL (74-106); Potassium 3.6 mmol/L (3.5-5.1); SODIUM 137 mmol/L (137-145)
[2020-04-29] MEDS: NORVASC 5 MG PO SCH (11:27)
[2020-04-29] MEDS: ECOTRIN 81 MG PO SCH (11:27)
[2020-04-29] MEDS: hydroDIURIL 25 MG PO SCH (11:27)
[2020-04-29] MEDS: Acidophilus TABLET PO SCH (11:27)
[2020-04-29] MEDS: Klor Con 10 MEQ PO SCH ×2 (11:28→21:23)
[2020-04-29] MEDS: Zestril 20 MG PO SCH (11:28)
[2020-04-29] MEDS: PROTONIX 40 MG IV IV SCH (11:28)
[2020-04-29] MEDS: DULCOLAX 5 MG PO SCH (11:28)
[2020-04-29] MEDS: COREG 12.5 MG PO SCH ×2 (11:28→21:22)
[2020-04-29] MEDS: Miralax Powder 17GM PACKET PO SCH (11:29)
[2020-04-29] MEDS: ENOXAPARIN SODIUM SQ SCH (11:29)
[2020-04-29] MEDS: LASIX 20 MG PO SCH (11:30)
[2020-04-29] MEDS: VANCOMYCIN 1.5 GRAM/300 ML BAG 1.5 GM/300 ML PIGGYBACK IV SCH ×2 (11:35→21:23)
[2020-04-29] MEDS: PATIENT OWN MEDICATION SQ SCH (11:56)
[2020-04-29] MEDS: Hydromorphone 1 mg/ml Injection IV PRN ×2 (13:25→21:31)
[2020-04-29] MEDS: Sodium Chloride 0.9% 1000 ML 1,000 ML IV SCH (14:24)
[2020-04-29] MEDS: ZOCOR 20MG PO SCH (21:23)
[2020-04-29] MEDS: Valium 5 MG PO PRN (22:48)
[2020-04-30] MEDS: Zosyn 3.375 GM Vial 3.375 GM in Sodium Chloride 100ML MINI-BAG PLUS 100 ML IV SCH ×3 (00:02→13:39)
[2020-04-30] MEDS: OXYCODONE-ACETAMINOPHEN 10-325 PO PRN ×3 (03:16→12:01)
[2020-04-30 06:11] LABS: Hematocrit 39.5 % (42-50); Mean Cell Volume 85.5 fl (78-100); Mean Corpuscular Hgb Concent. 30.4 g/dl (32-36); Mean Platelet Volume 9.7 fl (7.5-11.0); Platelet Count 315 K/mm3 (150-450); Red Blood Count 4.62 M/mm3 (4.1-5.6); Red Cell Distribution Width 16.2 % (11.5-14.0)
[2020-04-30 06:30] LABS: ANION GAP 5.7 MEQ/L (5-15); BLOOD UREA NITROGEN 12 mg/dL (9-20); CHLORIDE 104 mmol/L (98-107); Calcium 8.6 mg/dL (8.4-10.2); Carbon Dioxide 31 mmol/L (22-30); EST GLOMERULAR FILTRATION RATE > 60.0 ML/MIN; Glucose 81 mg/dL (74-106); Potassium 3.5 mmol/L (3.5-5.1); SODIUM 137 mmol/L (137-145)
[2020-04-30] MEDS: Sodium Chloride 0.9% 1000 ML 1,000 ML IV SCH (07:26)
[2020-04-30] MEDS ORDERED: TROUGH DRUG LEVELS IJ ONE (09:30)
[2020-04-30] MEDS: DULCOLAX 5 MG PO SCH (09:37)
[2020-04-30] MEDS: Klor Con 10 MEQ PO SCH (09:37)
[2020-04-30] MEDS: LASIX 20 MG PO SCH (09:37)
[2020-04-30] MEDS: Zestril 20 MG PO SCH (09:37)
[2020-04-30] MEDS: hydroDIURIL 25 MG PO SCH (09:37)
[2020-04-30] MEDS: ECOTRIN 81 MG PO SCH (09:37)
[2020-04-30] MEDS: Miralax Powder 17GM PACKET PO SCH (09:37)
[2020-04-30] MEDS: COREG 12.5 MG PO SCH (09:38)
[2020-04-30] MEDS: ENOXAPARIN SODIUM SQ SCH (09:38)
[2020-04-30] MEDS: Acidophilus TABLET PO SCH (09:38)
[2020-04-30] MEDS: PROTONIX 40 MG IV IV SCH (09:38)
[2020-04-30] MEDS: PATIENT OWN MEDICATION SQ SCH (09:38)
[2020-04-30] MEDS: NORVASC 5 MG PO SCH (09:38)
[2020-04-30 11:28] VITALS: BP 137/63; PULSE 76; O2SAT 94
[2020-04-30] MEDS: VANCOMYCIN 1.5 GRAM/300 ML BAG 1.5 GM/300 ML PIGGYBACK IV SCH (11:50)
--- NOTE | 2020-04-30 12:00 | PCM.DS ---
Discharge Summary Date of Admission: 04/24/20 14:36 Admitting Physician: GLO LEE MD Primary Care Provider: DIRK AYALA Allergies Allergies bacitracin [From Neosporin] Allergy (Mild, Verified 04/24/20 09:04) Blisters neosporin ointment bacitracin zinc [From Neosporin] Allergy (Mild, Verified 04/24/20 09:04) Blisters neosporin ointment benzalkonium chloride [From Neosporin] Allergy (Mild, Verified 04/24/20 09:04) Blisters neosporin ointment gramicidin D [From Neosporin] Allergy (Mild, Verified 04/24/20 09:04) Blisters neosporin ointment hydrocortisone [From Neosporin] Allergy (Mild, Verified 04/24/20 09:04) Blisters neosporin ointment neomycin sulfate [From Neosporin] Allergy (Mild, Verified 04/24/20 09:04) Blisters neosporin ointment polymyxin B [From Neosporin] Allergy (Mild, Verified 04/24/20 09:04) Blisters neosporin ointment polymyxin B sulfate [From Neosporin] Allergy (Mild, Verified 04/24/20 09:04) Blisters neosporin ointment liraglutide [From Victoza] Allergy (Verified 04/24/20 09:04) morphine Adverse Reaction (Intermediate, Verified 04/24/20 09:04) hallucinate Hospital Summary - Hospital Course Hospital Course: Pt is a 64 yo pt of mine from [facility] with DM who was admitted through ER with 3d of LE pain and erythema. Did have some temp over 100 here. Was started on IV vancomycin and zosyn and has improved steadily since then. PT has been debriding the leg and he was having dressing changes twice daily until yest , when PT wrapped the wound with the intention of it staying wrapped until Saturday (2d from now). He was initially having quite a bit of drainage, but that is decreased. Initial WBC count 19.9, but is now wnl (7.0). He is feeling much better; does still have some pain when he's up walking on the leg, but has been getting around more. Amber po well. Would like to go home today. - Vitals & Intake/Output Vital Signs: Vital Signs Temperature 98.1 F 04/30/20 11:27 Pulse Rate 76 04/30/20 11:27 Respiratory Rate 18 04/30/20 11:27 Blood Pressure 137/63 04/30/20 11:27 O2 Sat by Pulse Oximetry 94 L 04/30/20 11:27 Intake & Output: Intake & Output 04/27/20 04/28/20 04/29/20 04/30/20 11:59 11:59 11:59 11:59 Intake Total 3879 3147 5827 5354 Output Total 3650 1075 1900 2450 Balance 224 2069 3949 2904 Weight 122.6 kg 122.5 kg 124.5 kg 124 kg - Lab Result Diagrams: 04/30/20 05:50 04/30/20 05:50 Lab Results-Last 24 Hrs: Lab Results-Last 24 Hours 04/29/20 04/29/20 04/30/20 Range/Units 16:20 20:48 05:50 WBC 7.0 (4.0-10.5) K/mm3 RBC 4.62 (4.1-5.6) M/mm3 Hgb 12.0 L (12.5-18.0) gm/dl Hct 39.5 L (42-50) % MCV 85.5 (78-100) fl MCH 26.0 (26-32) pg MCHC 30.4 L (32-36) g/dl RDW 16.2 H (11.5-14.0) % Plt Count 315 (150-450) K/mm3 MPV 9.7 (7.5-11.0) fl Sodium (137-145) mmol/L Potassium (3.5-5.1) mmol/L Chloride (98-107) mmol/L Carbon Dioxide (22-30) mmol/L Anion Gap (5-15) MEQ/L BUN (9-20) mg/dL Creatinine (0.66-1.25) mg/dL Estimated GFR ML/MIN Glucose (74-106) mg/dL POC Glucometer 156 H 197 H (74 to 106) mg/dL Calcium (8.4-10.2) mg/dL Vancomycin Trough (10-20) ug/mL 04/30/20 04/30/20 04/30/20 Range/Units 05:50 07:29 09:30 WBC (4.0-10.5) K/mm3 RBC (4.1-5.6) M/mm3 Hgb (12.5-18.0) gm/dl Hct (42-50) % MCV (78-100) fl MCH (26-32) pg MCHC (32-36) g/dl RDW (11.5-14.0) % Plt Count (150-450) K/mm3 MPV (7.5-11.0) fl Sodium 137 (137-145) mmol/L Potassium 3.5 (3.5-5.1) mmol/L Chloride 104 (98-107) mmol/L Carbon Dioxide 31 H (22-30) mmol/L Anion Gap 5.7 (5-15) MEQ/L BUN 12 (9-20) mg/dL Creatinine 0.90 (0.66-1.25) mg/dL Estimated GFR > 60.0 ML/MIN Glucose 81 (74-106) mg/dL POC Glucometer 63 L (74 to 106) mg/dL Calcium 8.6 (8.4-10.2) mg/dL Vancomycin Trough 14.54 (10-20) ug/mL 04/30/20 Range/Units 11:39 WBC (4.0-10.5) K/mm3 RBC (4.1-5.6) M/mm3 Hgb (12.5-18.0) gm/dl Hct (42-50) % MCV (78-100) fl MCH (26-32) pg MCHC (32-36) g/dl RDW (11.5-14.0) % Plt Count (150-450) K/mm3 MPV (7.5-11.0) fl Sodium (137-145) mmol/L Potassium (3.5-5.1) mmol/L Chloride (98-107) mmol/L Carbon Dioxide (22-30) mmol/L Anion Gap (5-15) MEQ/L BUN (9-20) mg/dL Creatinine (0.66-1.25) mg/dL Estimated GFR ML/MIN Glucose (74-106) mg/dL POC Glucometer 125 H (74 to 106) mg/dL Calcium (8.4-10.2) mg/dL Vancomycin Trough (10-20) ug/mL Micro Results-Entire Visit: Microbiology 04/25/20 15:21 Wound Culture - Final Leg - Left Lower ORGANISMS ISOLATED ARE CONSISTENT WITH NORMAL SKIN MARSHALL LIGHT GROWTH, NO PREDOMINANT ORGANISM 04/24/20 09:28 Blood Culture Gram Stain - Final Blood Not Reportable Blood Culture - Final NO GROWTH 04/24/20 09:20 Blood Culture Gram Stain - Final Blood Not Reportable Blood Culture - Final NO GROWTH Accuchecks Date 04/30/20 Date 04/30/20 Date 04/29/20 Date 04/29/20 Time 11:42 Time 07:33 Time 16:20 Time 16:20 - Procedures and Test Procedures and Tests throughout Hospitalization: Therapy Orders & Screens 04/25/20 08:00 OT Screen per Nursing Assess ONCE Comment: Protocol Order Physician Instructions: Greater than 3 points order OT Admission Screening Reason For Exam: Triggered on Admission Diagnosis: LEFT LOWER LEG CELLULITIS Open Wound/Cellutlitis/Pressure Ulcers: Yes Acute Fx/ORIF/Change in wt bearing status: No Severe MUSCULOSKELETAL pain: No ADL Dysfunction: No Acute CVA w/Hemiparesis/Hemiplegia: No Decreased Functional Mobility/Strength: No Sprain/Strain: No Acute Post-op Mobility Dysfunction: No Total Points: 5 PT Screen per Nursing Assess ONCE Comment: Protocol Order Physician Instructions: Greater than 3 points order PT Admission Screenin Reason For Exam: Triggered on Admission Diagnosis: LEFT LOWER LEG CELLULITIS Open Wound/Cellutlitis/Pressure Ulcers: Yes Acute Fx/ORIF/Change in wt bearing status: No Severe MUSCULOSKELETAL pain: No ADL Dysfunction: No Acute CVA w/Hemiparesis/Hemiplegia: No Decreased Functional Mobility/Strength: No Sprain/Strain: No Acute Post-op Mobility Dysfunction: No Total Points: 5 04/25/20 12:12 PT Eval & Treat (MD Order) ONCE Reason for Eval:: CELLULITIS Diagnosis: LEFT LOWER LEG CELLULITIS 04/25/20 13:11 Oxygen NASAL CANNULA 2 lpm Comment: Diagnosis: LEFT LOWER LEG CELLULITIS 04/28/20 11:46 RT Miscellaneous Order ROUTINE Comment: Physician Instructions: Reason For Exam: WEAN FROM OXYGEN Diagnosis: LEFT LOWER LEG CELLULITIS Discharge Exam General Appearance: no apparent distress, obese Neurologic Exam: oriented x 3, cooperative Eye Exam: eyes nml inspection Ears, Nose, Throat Exam: moist mucous membranes Neck Exam: normal inspection Respiratory Exam: normal breath sounds, lungs clear, No crackles/rales, No rhonchi, No wheezing Cardiovascular Exam: regular rate/rhythm, normal heart sounds, No murmur Gastrointestinal/Abdomen Exam: soft, normal bowel sounds, No tenderness, No mass, No guarding, No rebound Back Exam: normal inspection, No rash Extremity Exam: other (LLE decreased erythema proximal to bandage, and on foot. Lower leg is werapped.) Wound Assessment: Skin/Wound Assessment Wound/Incision Assessment Start: 04/24/20 14:5 4 Text: Status: Active Freq: Q6H Protocol: Document 04/30/20 08:00 KIARA (Rec: 04/30/20 08:06 KIARA [id number]) Wound/Incision Assessment Left Lower Calf Wound Assessment Shift Assessment Wound Type cellulitis Wound Stage Non Pressure Wound Dressing Status Dry & Intact Drainage Amount Minimal Drainage Description Yellow Comment LLE cellulitis wrapped per PT. Edema noted at edges of dressing. Purnima CDI. remains true Wound Photo Photo Taken No Final Diagnosis/Problem List - Final Discharge Diagnosis/Problem (1) Cellulitis of left leg Current Visit: Yes Status: Acute Assessment & Plan: improved. Home on po clindamycin. Will have him f/u with me in a week; he is to see PT on Saturday (in 2d). INSPECT appropriate today. Percocet 10/325 1 po QID prn, #28, sent in electronically. Code(s): L03.116 - CELLULITIS OF LEFT LOWER LIMB (2) Diabetes mellitus Current Visit: Yes Status: Chronic Assessment & Plan: Sees Dr. Molina. Code(s): E11.9 - TYPE 2 DIABETES MELLITUS WITHOUT COMPLICATIONS (3) Hypokalemia Current Visit: Yes Status: Resolved Code(s): E87.6 - HYPOKALEMIA (4) Chronic hypoxemic respiratory failure Current Visit: Yes Status: Acute Assessment & Plan: Needs to go home on home O2. - Discharge Disposition: Home, Self-Care Condition: Good Prescriptions: New Lactobacillus Acidophilus [Acidophilus TABLET] 1 tab PO BID #60 tablet Clindamycin HCl 300 mg PO QID #28 capsule Potassium Chloride 10 Meq Tab* [Klor Con 10 MEQ] 10 meq PO BID #60 tab Oxycodone HCl/Acetaminophen [Percocet 10-325 mg Tablet] 1 each PO QID PRN #28 tablet MDD 4 PRN Reason: Severe Pain Continue Simvastatin 20Mg [Zocor 20Mg] 40 mg PO QHS Hydrochlorothiazide 12.5 mg PO DAILY Metformin HCl 1,000 mg PO BID Carvedilol 12.5 mg [Coreg 12.5 mg] 12.5 mg PO BID Amlodipine Besylate 5 mg [Norvasc 5 mg] 10 mg PO DAILY lisinopriL [Lisinopril] 20 mg PO DAILY Empagliflozin [Jardiance] 25 mg PO DAILY Semaglutide [Ozempic] 0.25 mg IM WEEKLY Furosemide 20 mg [Lasix 20 mg] 20 mg PO DAILY Aspirin 81 gm Chew [Baby Aspirin 81 mg Chew] 81 mg PO DAILY Insulin Aspart [Novolog] 1 units SQ UD Follow up with: DIRK AYALA [Primary Care Provider] - 1 Week
== END 2020-04-30 14:25 | disposition home or self-care (01) | DRG 603 ==
LOC: ED 08:43 → MED SURG 14:36
PROVIDERS: ADMIT Family Medicine; ATTEND Family Medicine
DX: L03.116 Cellulitis of left lower limb (principal); J96.11 Chronic respiratory failure with hypoxia; E87.6 Hypokalemia; Z79.899 Other long term (current) drug therapy; E11.9 Type 2 diabetes mellitus without complications; E78.00 Pure hypercholesterolemia, unspecified; I10 Essential (primary) hypertension; Z86.79 Personal history of other diseases of the circulatory system
CPT/HCPCS: 36000; 36415; 73700; 80048; 80053; 80202; 81001; 82962; 83036; 83605; 85025; 85027; 87040; 87070; 93971; 94760; 94762; 96365; 96367; 96374; 96375; 99284; 99291; J1170; J1650; J2405; A9270-GY; J3370

== ENCOUNTER 2020-09-20 09:30 | Inpatient (IN) | payer BC, MEDICARE ==
[2020-09-20] MEDS: Hydromorphone 1 mg/ml Injection IV PRN (11:09)
[2020-09-20 11:28] LABS: INFLUENZA A NEGATIVE (NEGATIVE); INFLUENZA B NEGATIVE (NEGATIVE); RESPIRATORY SYNCTIAL VIRUS NEGATIVE (Negative)
[2020-09-20] MEDS ORDERED: SEMAGLUTIDE IM SCH (11:30)
[2020-09-20] MEDS ORDERED: PATIENT OWN MEDICATION SQ SCH (11:30)
[2020-09-20 11:32] LABS: Absolute Neutrophil Ct (ANC) 6.54 (1.4-6.9); BASOPHIL % 0.2 % (0.0-0.4); Basophil (Absolute #) 0.02 (0-0.4); Eosinophil % 1.1 % (0.00-5.0); Hematocrit 46.5 % (42-50); Hemoglobin 14.4 gm/dl (12.5-18.0); Lymphocyte (Absolute #) 1.05 (1.0-4.6); Lymphocytes % 11.9 % (24.0-44.0); Mean Cell Volume 82.2 fl (78-100); Mean Corpuscular Hemoglobin 25.4 pg (26-32); Mean Platelet Volume 10.7 fl (7.5-11.0); Monocyte (Absolute #) 1.08 (0.0-1.3); Monocytes % 12.3 % (0.0-12.0); Neutrophil % 74.5 % (36.0-66.0); Platelet Count 288 K/mm3 (150-450); Red Blood Count 5.66 M/mm3 (4.1-5.6); Red Cell Distribution Width 15.9 % (11.5-14.0); White Blood Count 8.8 K/mm3 (4.0-10.5)
[2020-09-20 11:38] LABS: ALKALINE PHOSPHATASE 111 U/L (38-126); ANION GAP 12.6 MEQ/L (5-15); BLOOD UREA NITROGEN 24 mg/dL (9-20); CHLORIDE 98 mmol/L (98-107); CK-Creatinine Phosphokinase 28 U/L (55-170); Calcium 9.9 mg/dL (8.4-10.2); Carbon Dioxide 31 mmol/L (22-30); Creatinine 1 0.86 mg/dL (0.66-1.25); EST GLOMERULAR FILTRATION RATE > 60.0 ML/MIN; Glucose 121 mg/dL (74-106); Potassium 4.3 mmol/L (3.5-5.1); SGOT/AST 39 U/L (17-59); SGPT/ALT 33 U/L (0-50); SODIUM 137 mmol/L (137-145); Total Protein 7.2 g/dL (6.3-8.2)
[2020-09-20] MEDS ORDERED: MEDICATION INTERVENTION PO SCH (11:45)
[2020-09-20] MEDS: Zosyn 3.375 GM Vial 3.375 GM in Sodium Chloride 100ML MINI-BAG PLUS 100 ML IV SCH ×2 (12:07→17:41)
[2020-09-20 12:42] LABS: Erythrocyte Sedimentation Rate 1 mm/hr (0-15)
[2020-09-20] MEDS: VANCOMYCIN 1 GRAM/200 ML BAG 1 GM/200 ML PIGGYBACK IV SCH ×2 (12:46→21:43)
--- NOTE | 2020-09-20 12:57 | PCM.CONS ---
Podiatry HPI - Consult Date of Consultation Date: 09/20/20 Reason for Consult: Cellulitis left lower extremity, extreme pain Consulting Provider: RAHAT MORE DPM - [facility] History of Present Illness: Pete Mcclellan is a very pleasant 65-year-old male who presents today with extreme pain redness warmth and swelling to the left lower extremity. Patient has been seen and is very well-known to our service for a second toe ulceration to the distal tip which has required offloading and wound care. Patient indicates that he has been noticing a progressive increase in pain and swelling to the left lower extremity and noted extreme redness that proceeded to extend from the dorsal aspect of the foot to the proximal tibia. Patient indicates that the pain was so bad that he is unable to ambulate at this time. He currently denies any constitutional symptoms however he indicates he is in a significant amount of pain and the left lower extremity is red swollen and edematous. Medications & Allergies Home Medications: Home Medication List Simvastatin 20Mg [Zocor 20Mg] 40 mg PO QHS 11/21/11 [History Confirmed 09/20/20] Amlodipine Besylate 5 mg [Norvasc 5 mg] 10 mg PO DAILY 06/06/18 [History Confirmed 09/20/20] Carvedilol 12.5 mg [Coreg 12.5 mg] 12.5 mg PO BID 06/06/18 [History Confirmed 09/20/20] Hydrochlorothiazide 12.5 mg PO DAILY 06/06/18 [History Confirmed 09/20/20] Metformin HCl 1,000 mg PO BID 06/06/18 [History Confirmed 09/20/20] lisinopriL [Lisinopril] 20 mg PO DAILY 05/26/19 [History Confirmed 09/20/20] Empagliflozin [Jardiance] 25 mg PO DAILY 02/18/20 [History Confirmed 09/20/20] Furosemide 20 mg [Lasix 20 mg] 20 mg PO DAILY 02/18/20 [History Confirmed 09/20/20] Semaglutide [Ozempic] See Protocol IM WEEKLY 02/18/20 [History Confirmed ] Aspirin 81 gm Chew [Baby Aspirin 81 mg Chew] 81 mg PO DAILY 04/24/20 [History Confirmed 09/20/20] Insulin Aspart [Novolog] 1 units SQ UD 04/24/20 [History Confirmed 09/20/20] Allergies/Adverse Reactions: Allergies Allergy/AdvReac Type Severity Reaction Status Date / Time bacitracin [From Neosporin] Allergy Mild Blisters Verified 04/24/20 09:04 bacitracin zinc Allergy Mild Blisters Verified 04/24/20 09:04 [From Neosporin] benzalkonium chloride Allergy Mild Blisters Verified 04/24/20 09:04 [From Neosporin] gramicidin D [From Neosporin] Allergy Mild Blisters Verified 04/24/20 09:04 hydrocortisone Allergy Mild Blisters Verified 04/24/20 09:04 [From Neosporin] neomycin sulfate Allergy Mild Blisters Verified 04/24/20 09:04 [From Neosporin] polymyxin B [From Neosporin] Allergy Mild Blisters Verified 04/24/20 09:04 polymyxin B sulfate Allergy Mild Blisters Verified 04/24/20 09:04 [From Neosporin] liraglutide [From Victoza] Allergy Verified 04/24/20 09:04 morphine AdvReac Intermediate Verified 04/24/20 09:04 - Past Medical History Past Medical History: Yes Neurological History: No Pertinent History, Peripheral Neuropathy ENT History: No Pertinent History Cardiac History: Coronary Artery Disease, Hypertension, Other Respiratory History: No Pertinent History Endocrine Medical History: Diabetes Type II Musculoskelatal History: Osteoarthritis GI Medical History: No Pertinent History History: No Pertinent History Pyscho-Social History: No Pertinent History Male Reproductive Disorders: No Pertinent History Comment: 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 - Past Surgical History Past Surgical History: Yes Neuro Surgical History: No Pertinent History Cardiac History: Cardiac Catheterization Respiratory Surgery: No Pertinent History GI Surgical History: Cholecystectomy Genitourinary Surgical Hx: No Pertinent History Musculskeletal Surgical Hx: Orthopedic Surgery Male Surgical History: No Pertinent History Other Surgical History: Choly, bilateral legs - Social History Smoking Status: Never smoker Exposure to second hand smoke: Yes Alcohol: None Drug Use: none Physical Exam - Narrative Narrative Physical Exam: Podiatry Physical Exam Vascular: DP and PT pulses Non-palpable b/l. CFT <5 seconds b/l. Skin temperature Very warm to very warm with an increase in warmth to the second digit of the right foot from the proximal tibial tuberosity to distal toes b/l. Absent pedal hair growth b/l. 4+ pitting edema to the to the left lower extremity 2 + pitting edema to the right. Cellulitis noted to the second digit of the left foot associated with the callused toe the cellulitis extends to the midfoot There is cellulitis that again increases at the distal ankle at the level of the tibiotalar joint and extends to the tibial tuberosity. Cellulitis affects the primarily the anterior and medial aspects of the leg however does not wrap circumferentially to the posterior or posterior lateral aspects. See Marker delination for improvement. There is no proximal streaking or lymphangitis noted. No lymphadenopathy on palpation of the popliteal or inguinal lymph nodes b/l Neurological: Protective sensation diminished 4/10 on the right and 7/10 on the left as indicated with [place]-Chris 5.07 monofilament b/l. Lower extremity temperature sensation diminished b/l. Evidence of intrinsic muscle atrophy. Dermatological: Significant trophic changes to the skin. There is evidence of brawny edema secondary to venous stasis specifically to the left lower extremity. Skin is xerotic and scaly in nature. Turgor is rigid. Multiple cicatrix noted in regards to traumatic accident all which are coapt without incident. small open lesion noted to to 2nd digit of the left foot. Toenails 1-5 b/l are abnormal in Length,thickness and color,They are dystrophic and crumbly and painful on compression. Webspaces are clean, dry and intact b/l. Hemorrhagic callus to the plantar aspect of the second digit of the left foot when debrided. No malodor no probe to bone. Wound measures 0.4x 0.2 x 0.3 - undermining negative probe to bone. Musculoskeletal: Strength intact for all muscle groups b/l. Pes planus foot architecture noted. Normal ROM noted to all pedal joints b/l. Pain on palpation of the second digit of the left foot. pain with medial to lateral compression of calf Unable to bear weight to left lower extremity. Results - Labs Lab/Micro Results: Lab Results-Last 24 Hours 09/20/20 09/20/20 09/20/20 Range/Units 10:31 11:30 11:30 WBC 8.8 (4.0-10.5) K/mm3 RBC 5.66 H (4.1-5.6) M/mm3 Hgb 14.4 (12.5-18.0) gm/dl Hct 46.5 (42-50) % MCV 82.2 (78-100) fl MCH 25.4 L (26-32) pg MCHC 31.0 L (32-36) g/dl RDW 15.9 H (11.5-14.0) % Plt Count 288 (150-450) K/mm3 MPV 10.7 (7.5-11.0) fl Gran % 74.5 H (36.0-66.0) % Eos # (Auto) 0.10 (0-0.5) Absolute Lymphs (auto) 1.05 (1.0-4.6) Absolute Monos (auto) 1.08 (0.0-1.3) Lymphocytes % 11.9 L (24.0-44.0) % Monocytes % 12.3 H (0.0-12.0) % Eosinophils % 1.1 (0.00-5.0) % Basophils % 0.2 (0.0-0.4) % Absolute Granulocytes 6.54 (1.4-6.9) Basophils # 0.02 (0-0.4) ESR 1 (0-15) mm/hr Sodium 137 (137-145) mmol/L Potassium 4.3 (3.5-5.1) mmol/L Chloride 98 (98-107) mmol/L Carbon Dioxide 31 H (22-30) mmol/L Anion Gap 12.6 (5-15) MEQ/L BUN 24 H (9-20) mg/dL Creatinine 0.86 (0.66-1.25) mg/dL Estimated GFR > 60.0 ML/MIN Glucose 121 H (74-106) mg/dL Calcium 9.9 (8.4-10.2) mg/dL Total Bilirubin 0.60 (0.2-1.3) mg/dL AST 39 (17-59) U/L ALT 33 (0-50) U/L Alkaline Phosphatase 111 (38-126) U/L Creatine Kinase 28 L (55-170) U/L Serum Total Protein 7.2 (6.3-8.2) g/dL Albumin 4.0 (3.5-5.0) g/dL Procalcitonin 0.846 H (0.030-0.080) ng/mL Influenza Type A Ag NEGATIVE (NEGATIVE) Influenza Type B Ag NEGATIVE (NEGATIVE) RSV (PCR) NEGATIVE (Negative) SARS-CoV-2 (PCR) NEGATIVE (NEGATIVE) Assessment/Plan (1) Diabetic foot ulcer associated with type 2 diabetes mellitus Current Visit: Yes Status: Acute Code(s): E11.621 - TYPE 2 DIABETES MELLITUS WITH FOOT ULCER; L97.509 - NON-PRESSURE CHRONIC ULCER OTH PRT UNSP FOOT W UNSP SEVERITY (2) Cellulitis of left leg Current Visit: No Status: Acute Assessment & Plan: Patient examination and evaluation Venous Doppler obtained demonstrating no DVT to the left lower extremity. Admission through Dr. Rausch who will be managing patient medically thank you for your assistance. Pain control: 0.5 mg every 2 to 3 hours as needed, alternate with oxycodone acetaminophen 10 mg 325 mg every 6 hours as needed Labs obtained and reviewed Awaiting blood cultures Begin vancomycin 1 g every 12 hours and Zosyn 3.375 g every 6 hours. Check vancomycin trough before fourth dose Diabetic diet PTOT Consult social work supervisor Once pain under control will plan for Betadine paint and Unna boot to the left lower extremity in order to provide compression And alleviation of symptomatology to be changed Saturday and Saturday Will follow closely Thank you for the consultation Code(s): L03.116 - CELLULITIS OF LEFT LOWER LIMB (3) Diabetes mellitus Current Visit: No Status: Chronic Qualifiers: Diabetes mellitus type: type 2 Diabetes mellitus detention insulin use: with detention use Diabetes mellitus complication status: with skin complications Diabetes mellitus complication detail: with other skin ulcer Qualified Code(s): E11.622 - Type 2 diabetes mellitus with other skin ulcer; Z79.4 - alf (current) use of insulin Code(s): E11.9 - TYPE 2 DIABETES MELLITUS WITHOUT COMPLICATIONS
[2020-09-20] MEDS: OXYCODONE-ACETAMINOPHEN 10-325 PO PRN ×2 (14:19→20:16)
[2020-09-20] MEDS ORDERED: Hydromorphone 1 mg/ml Injection IV ONE (19:08)
--- NOTE | 2020-09-20 19:14 | PCM.HP ---
History of Present Illness - Chief Complaint Chief Complaint: cellulitis History of Present Illness: is a 65 year old male pt of mine from [facility], with diabetes on insulin pump, HTN, and recurrent cellulitis who was admitted today from Dr. Spangler's office with LLE cellulitis. He started feeling pain in the LLE 5d ago and had reduced his activity and stayed home with the leg up. Today he had an appt with Dr. Spangler and had to go in via wheelchair. He was put on vancomycin and zosyn IV. He is c/o 5/10 pain that is persistent despite 1 dose of dilaudid 0.5mg and percocet po. - Review of Systems Constitutional: Fatigue Skin: Cellulitis Neurological: Other (insomnia due to pain) Psychological: Anxiety, Depression, No Suicidal Ideations All Other Systems: Reviewed and Negative Medications & Allergies Home Medications: Home Medication List Simvastatin 20Mg [Zocor 20Mg] 40 mg PO QHS 11/21/11 [History Confirmed 09/20/20] Amlodipine Besylate 5 mg [Norvasc 5 mg] 10 mg PO DAILY 06/06/18 [History Confirmed 09/20/20] Carvedilol 12.5 mg [Coreg 12.5 mg] 12.5 mg PO BID 06/06/18 [History Confirmed 09/20/20] Hydrochlorothiazide 12.5 mg PO DAILY 06/06/18 [History Confirmed 09/20/20] Metformin HCl 1,000 mg PO BID 06/06/18 [History Confirmed 09/20/20] lisinopriL [Lisinopril] 20 mg PO DAILY 05/26/19 [History Confirmed 09/20/20] Empagliflozin [Jardiance] 25 mg PO DAILY 02/18/20 [History Confirmed 09/20/20] Furosemide 20 mg [Lasix 20 mg] 20 mg PO DAILY 02/18/20 [History Confirmed 09/20/20] Semaglutide [Ozempic] See Protocol IM WEEKLY 02/18/20 [History Confirmed 09/20/20] Aspirin 81 gm Chew [Baby Aspirin 81 mg Chew] 81 mg PO DAILY 04/24/20 [History Confirmed 09/20/20] Insulin Aspart [Novolog] 1 units SQ UD 04/24/20 [History Confirmed 09/20/20] Allergies/Adverse Reactions: Allergies Allergy/AdvReac Type Severity Reaction Status Date / Time bacitracin [From Neosporin] Allergy Mild Blisters Verified 04/24/20 09:04 bacitracin zinc Allergy Mild Blisters Verified 04/24/20 09:04 [From Neosporin] benzalkonium chloride Allergy Mild Blisters Verified 04/24/20 09:04 [From Neosporin] gramicidin D [From Neosporin] Allergy Mild Blisters Verified 04/24/20 09:04 hydrocortisone Allergy Mild Blisters Verified 04/24/20 09:04 [From Neosporin] neomycin sulfate Allergy Mild Blisters Verified 04/24/20 09:04 [From Neosporin] polymyxin B [From Neosporin] Allergy Mild Blisters Verified 04/24/20 09:04 polymyxin B sulfate Allergy Mild Blisters Verified 04/24/20 09:04 [From Neosporin] liraglutide [From Victoza] Allergy Verified 04/24/20 09:04 morphine AdvReac Intermediate Verified 04/24/20 09:04 - Past Medical History Past Medical History: Yes Neurological History: No Pertinent History, Peripheral Neuropathy ENT History: No Pertinent History Cardiac History: Coronary Artery Disease, Hypertension, Other Respiratory History: No Pertinent History Endocrine Medical History: Diabetes Type II Musculoskelatal History: Osteoarthritis GI Medical History: No Pertinent History History: No Pertinent History Pyscho-Social History: No Pertinent History Male Reproductive Disorders: No Pertinent History Comment: 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 - Past Surgical History Past Surgical History: Yes Neuro Surgical History: No Pertinent History Cardiac History: Cardiac Catheterization Respiratory Surgery: No Pertinent History GI Surgical History: Cholecystectomy Genitourinary Surgical Hx: No Pertinent History Musculskeletal Surgical Hx: Orthopedic Surgery Male Surgical History: No Pertinent History Other Surgical History: Choly, bilateral legs - Social History Smoking Status: Never smoker Exposure to second hand smoke: Yes Alcohol: None Drug Use: none - Physical Exam Vital Signs: Vital Signs - 24 hr Temp Pulse Resp BP Pulse Ox 09/20/20 16:00 97.5 F 87 20 138/69 94 L 09/20/20 12:00 98.5 F 79 18 121/58 95 09/20/20 10:22 98.1 F 82 18 139/65 96 General Appearance: no apparent distress, alert, obese Neurologic Exam: oriented x 3, cooperative Eye Exam: eyes nml inspection Ears, Nose, Throat Exam: moist mucous membranes Neck Exam: normal inspection, non-tender, No lymphadenopathy Respiratory Exam: normal breath sounds, lungs clear, No crackles/rales, No rhonchi, No wheezing Cardiovascular Exam: regular rate/rhythm, normal heart sounds, No murmur Gastrointestinal/Abdomen Exam: soft, normal bowel sounds, No tenderness, No mass, No guarding, No rebound Back Exam: normal inspection, No CVA tenderness, No rash Extremity Exam: other (RLE no erythema/lesions/edema. LLE grossly enlarged over R; areas of erythema are marked (anterior lower leg and dorsum of foot). Tender. No exudate or distinct lesions. +warmth L 2nd digit, plantar surface with small defect/eschar visible.) Wound Assessment: Skin/Wound Assessment Wound/Incision Assessment Start: 09/20/20 11:00 Text: Status: Active Freq: Q6H Protocol: Document 09/20/20 17:00 RN (Rec: 09/20/20 17:20 RN [id number]) Wound/Incision Assessment Left Lower Leg Wound Assessment Shift Assessment Wound Type Cellulitis Wound Stage Non Pressure Wound Drainage Amount None Drainage Odor None/Absent General Appearance Open to air Surrounding Tissue Bright Red Wound Photo Photo Taken Yes Date: 09/20/20 Time: 11:00 Results - Labs Lab/Micro Results: Lab Results-Last 24 Hours 09/20/20 09/20/20 09/20/20 Range/Units 10:31 11:30 11:30 WBC 8.8 (4.0-10.5) K/mm3 RBC 5.66 H (4.1-5.6) M/mm3 Hgb 14.4 (12.5-18.0) gm/dl Hct 46.5 (42-50) % MCV 82.2 (78-100) fl MCH 25.4 L (26-32) pg MCHC 31.0 L (32-36) g/dl RDW 15.9 H (11.5-14.0) % Plt Count 288 (150-450) K/mm3 MPV 10.7 (7.5-11.0) fl Gran % 74.5 H (36.0-66.0) % Eos # (Auto) 0.10 (0-0.5) Absolute Lymphs (auto) 1.05 (1.0-4.6) Absolute Monos (auto) 1.08 (0.0-1.3) Lymphocytes % 11.9 L (24.0-44.0) % Monocytes % 12.3 H (0.0-12.0) % Eosinophils % 1.1 (0.00-5.0) % Basophils % 0.2 (0.0-0.4) % Absolute Granulocytes 6.54 (1.4-6.9) Basophils # 0.02 (0-0.4) ESR 1 (0-15) mm/hr Sodium 137 (137-145) mmol/L Potassium 4.3 (3.5-5.1) mmol/L Chloride 98 (98-107) mmol/L Carbon Dioxide 31 H (22-30) mmol/L Anion Gap 12.6 (5-15) MEQ/L BUN 24 H (9-20) mg/dL Creatinine 0.86 (0.66-1.25) mg/dL Estimated GFR > 60.0 ML/MIN Glucose 121 H (74-106) mg/dL Calcium 9.9 (8.4-10.2) mg/dL Total Bilirubin 0.60 (0.2-1.3) mg/dL AST 39 (17-59) U/L ALT 33 (0-50) U/L Alkaline Phosphatase 111 (38-126) U/L Creatine Kinase 28 L (55-170) U/L Serum Total Protein 7.2 (6.3-8.2) g/dL Albumin 4.0 (3.5-5.0) g/dL Procalcitonin 0.846 H (0.030-0.080) ng/mL Influenza Type A Ag NEGATIVE (NEGATIVE) Influenza Type B Ag NEGATIVE (NEGATIVE) RSV (PCR) NEGATIVE (Negative) SARS-CoV-2 (PCR) NEGATIVE (NEGATIVE) Assessment/Plan (1) Diabetic foot ulcer associated with type 2 diabetes mellitus Current Visit: Yes Status: Acute Qualifiers: Diabetic foot ulcer location: toe Laterality: left Non-pressure ulcer stage: limited to breakdown of skin Qualified Code(s): E11.621 - Type 2 diabetes mellitus with foot ulcer; L97.521 - Non-pressure chronic ulcer of other part of left foot limited to breakdown of skin Assessment & Plan: Per Dr. Spangler, thank you. Code(s): E11.621 - TYPE 2 DIABETES MELLITUS WITH FOOT ULCER; L97.509 - NON- PRESSURE CHRONIC ULCER OTH PRT UNSP FOOT W UNSP SEVERITY (2) Cellulitis of left leg Current Visit: No Status: Acute Assessment & Plan: on day #1 vancomycin and zosyn IV. Giving 1mg dilaudid now for pain control, followed by basically scheduled percocet. 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
[2020-09-20] MEDS ORDERED: Ativan 1 MG PO PRN (19:16)
[2020-09-20] MEDS: COREG 12.5 MG PO SCH (21:44)
[2020-09-20] MEDS: ZOCOR 20MG PO SCH (21:44)
[2020-09-21] MEDS: Zosyn 3.375 GM Vial 3.375 GM in Sodium Chloride 100ML MINI-BAG PLUS 100 ML IV SCH ×5 (01:21→23:46)
[2020-09-21] MEDS: Hydromorphone 1 mg/ml Injection IV PRN ×3 (01:40→13:16)
[2020-09-21] MEDS: OXYCODONE-ACETAMINOPHEN 10-325 PO PRN ×4 (02:04→22:04)
[2020-09-21 05:35] LABS: ANION GAP 11.5 MEQ/L (5-15); BLOOD UREA NITROGEN 18 mg/dL (9-20); CHLORIDE 100 mmol/L (98-107); Calcium 8.6 mg/dL (8.4-10.2); Carbon Dioxide 28 mmol/L (22-30); Creatinine 1 0.92 mg/dL (0.66-1.25); EST GLOMERULAR FILTRATION RATE > 60.0 ML/MIN; Glucose 122 mg/dL (74-106); Potassium 3.7 mmol/L (3.5-5.1); SODIUM 136 mmol/L (137-145)
[2020-09-21] MEDS: hydroDIURIL 25 MG PO SCH (09:19)
[2020-09-21] MEDS: Zestril 20 MG PO SCH (09:19)
[2020-09-21] MEDS: ECOTRIN 81 MG PO SCH (09:19)
[2020-09-21] MEDS: COREG 12.5 MG PO SCH ×2 (09:20→22:04)
[2020-09-21] MEDS: LASIX 20 MG PO SCH (09:20)
[2020-09-21] MEDS: NORVASC 5 MG PO SCH (09:20)
[2020-09-21] MEDS: VANCOMYCIN 1 GRAM/200 ML BAG 1 GM/200 ML PIGGYBACK IV SCH ×2 (09:20→22:04)
[2020-09-21] MEDS ORDERED: NON-FORMULARY ITEM (Empagliflozin [Jardiance] 25 MG) PO SCH (10:00)
--- NOTE | 2020-09-21 10:11 | XRAY ---
Indication: Osteomyelitis. Cellulitis. Comparison: August 01, 2020. 3 nonweightbearing views left foot demonstrates new diffuse soft tissue swelling presumed clinically reported cellulitis. Otherwise stable degenerative changes 1st MTP/midfoot/ankle, 1st metatarsal postsurgical changes, heel spurs, and thickened calcified Achilles tendon. No acute fracture, dislocation, or osseous destructive process.
--- NOTE | 2020-09-21 12:03 | PCM.NOTE ---
Date and Time: 09/21/20 1202 Objective Exam Wound Assessment: Skin/Wound Assessment Wound/Incision Assessment Start: 09/20/20 11:00 Text: Status: Active Freq: Q6H Protocol: Document 09/21/20 11:00 RN (Rec: 09/21/20 11:05 RN [id number]) Wound/Incision Assessment Left Lower Leg Wound Assessment Shift Assessment Wound Type Cellulitis Wound Stage Non Pressure Wound Drainage Amount None General Appearance Open to air Surrounding Tissue Bright Red,Dark Red Comment barrier cream Wound Photo Photo Taken No Date: 09/20/20 Time: 11:00 OBJECTIVE DATA Vital Signs: Vital Signs - 24 hr Temp Pulse Resp BP Pulse Ox 09/21/20 07:29 97.8 F 72 16 120/57 94 L 09/21/20 04:00 97.6 F 72 20 114/57 92 L 09/21/20 00:00 97.2 F 78 17 116/56 94 L 09/20/20 20:00 97.6 F 77 18 140/63 97 09/20/20 16:00 97.5 F 87 20 138/69 94 L Pain Assessment - Last Documented Pain Intensity 5 Pain Scale Used 0-10 Pain Scale Intake and Output: Intake & Output 09/19/20 09/20/20 09/21/20 09/22/20 11:59 11:59 11:59 11:59 Intake Total 1788 Output Total 1740 Balance 48 Weight 113.5 kg Lab Results: Lab Results-Last 24 Hours 09/20/20 09/20/20 09/21/20 Range/Units 11:30 11:30 04:00 ESR 1 (0-15) mm/hr Sodium 137 136 L (137-145) mmol/L Potassium 4.3 3.7 (3.5-5.1) mmol/L Chloride 98 100 (98-107) mmol/L Carbon Dioxide 31 H 28 (22-30) mmol/L Anion Gap 12.6 11.5 (5-15) MEQ/L BUN 24 H 18 (9-20) mg/dL Creatinine 0.86 0.92 (0.66-1.25) mg/dL Estimated GFR > 60.0 ML/MIN Glucose 121 H 122 H (74-106) mg/dL Calcium 9.9 8.6 (8.4-10.2) mg/dL Total Bilirubin 0.60 (0.2-1.3) mg/dL AST 39 (17-59) U/L ALT 33 (0-50) U/L Alkaline Phosphatase 111 (38-126) U/L Creatine Kinase 28 L (55-170) U/L Serum Total Protein 7.2 (6.3-8.2) g/dL Albumin 4.0 (3.5-5.0) g/dL Procalcitonin 0.846 H (0.030-0.080) ng/mL Radiology Exams: Radiology Procedures Category Date Time Status FOOT (MINIMUM 3 VIEWS) Routine Exams 09/21/20 09:59 Completed Multi-Disciplinary Progress Notes: Multi-Disciplinary Progress Notes 09/21/20 11:59 Case Management Note by Celestina Yates NO CHANGE IN DC PLANS AT THIS TIME. WILL CONTINUE TO MONITOR Initialized on 09/21/20 11:59 - END OF NOTE
[2020-09-21] MEDS: Colace 100 MG PO PRN ×2 (13:18→22:05)
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
[2020-09-21] MEDS: ZOCOR 20MG PO SCH (22:04)
[2020-09-21] MEDS: HUMALOG SQ PRN (22:49)
[2020-09-22] MEDS: Hydromorphone 1 mg/ml Injection IV PRN ×3 (02:42→22:23)
[2020-09-22 05:17] LABS: ANION GAP 10.9 MEQ/L (5-15); BLOOD UREA NITROGEN 14 mg/dL (9-20); CHLORIDE 98 mmol/L (98-107); Calcium 8.8 mg/dL (8.4-10.2); Carbon Dioxide 27 mmol/L (22-30); Creatinine 1 0.85 mg/dL (0.66-1.25); EST GLOMERULAR FILTRATION RATE > 60.0 ML/MIN; Glucose 135 mg/dL (74-106); SODIUM 132 mmol/L (137-145)
[2020-09-22] MEDS: Zosyn 3.375 GM Vial 3.375 GM in Sodium Chloride 100ML MINI-BAG PLUS 100 ML IV SCH ×3 (06:01→17:38)
[2020-09-22] MEDS: OXYCODONE-ACETAMINOPHEN 10-325 PO PRN ×3 (06:07→18:47)
[2020-09-22] MEDS: Colace 100 MG PO PRN ×2 (07:48→21:00)
[2020-09-22] MEDS ORDERED: TROUGH DRUG LEVELS IJ ONE (09:30)
[2020-09-22] MEDS: VANCOMYCIN 1 GRAM/200 ML BAG 1 GM/200 ML PIGGYBACK IV SCH ×2 (10:40→18:26)
[2020-09-22] MEDS: hydroDIURIL 25 MG PO SCH (10:41)
[2020-09-22] MEDS: NORVASC 5 MG PO SCH (10:41)
[2020-09-22] MEDS: LASIX 20 MG PO SCH (10:42)
[2020-09-22] MEDS: COREG 12.5 MG PO SCH ×2 (10:42→21:00)
[2020-09-22] MEDS: Zestril 20 MG PO SCH (10:42)
[2020-09-22] MEDS: ECOTRIN 81 MG PO SCH (10:43)
[2020-09-22] MEDS ORDERED: CITROMA 296 ML PO ONE (11:17)
[2020-09-22] MEDS: ZOCOR 20MG PO SCH (21:00)
[2020-09-22] MEDS: HUMALOG SQ PRN (21:02)
--- NOTE | 2020-09-22 23:13 | PCM.NOTE ---
Date and Time: 09/22/202308 Subjective Assessment: 65 yr old male seen and examined this am. Patient reports that he continues to feel better. He reports that his left lower leg is still painful but improving. Patient reports swelling in his lower extremity has decreased. Patient reports he has not had a BM yet. No other reported concerns this am. - Review of Systems Constitutional: No Symptoms Eyes: No Symptoms Ears, Nose, & Throat: No Symptoms Respiratory: No Cough, No Orthopnea, No Short Of Breath, No Wheezing Cardiac: Edema, No Chest Pain, No Palpitations, No Syncope Abdominal/Gastrointestinal: Constipation, No Abdominal Pain, No Nausea, No Vomiting, No Diarrhea, No Appetite Changes Genitourinary Symptoms: No Symptoms Musculoskeletal: Other (Left lower extremity pain erythema and swelling) Skin: Cellulitis (Left lower extremity) Neurological: No Symptoms Psychological: No Symptoms Objective Exam General Appearance: no apparent distress, obese Neurologic Exam: alert, oriented x 3, cooperative, normal mood/affect Skin Exam: normal color, warm, dry, other (Left lower extremity is now wrapped. Toes have some red purple discoloration and small ulceration on 2nd toe.) Wound Assessment: Skin/Wound Assessment Wound/Incision Assessment Start: 09/20/20 11:00 Text: Status: Active Freq: Q6H Protocol: Document 09/22/20 17:00 (Rec: 09/22/20 17:52 [id number]) Wound/Incision Assessment Left Lower Leg Wound Assessment Shift Assessment Wound Type Cellulitis Wound Stage Non Pressure Wound Dressing Status Dry & Intact Drainage Amount None General Appearance Clean/Dry Surrounding Tissue Bright Red,Dark Red Primary Dressing Gauze Roll/Wrap Secondary Dressing COBAN Comment no drainage noted, dressing clean and dry. changes to be done by podiatry and PT Eye Exam: eyes nml inspection, No scleral icterus Ears, Nose, Throat Exam: moist mucous membranes Neck Exam: normal inspection Respiratory Exam: normal breath sounds, lungs clear, No chest tenderness, No respiratory distress, No diminished breath sounds, No wheezing Cardiovascular Exam: regular rate/rhythm, normal heart sounds, No murmur, No friction rub, No gallop Gastrointestinal/Abdomen Exam: soft, normal bowel sounds, No tenderness, No distention, No mass Extremity Exam: pedal edema, swelling, tenderness (Left lower extremity tenderness with palpation) Back Exam: normal inspection Male Genitalia Exam: deferred Rectal Exam: deferred OBJECTIVE DATA Vital Signs: Vital Signs - 24 hr Temp Pulse Resp BP BP Pulse Ox 09/22/20 20:00 98.1 F 70 22 129/62 94 L 09/22/20 16:00 98.8 F 81 18 128/61 93 L 09/22/20 12:00 98.9 F 76 18 112/55 91 L 09/22/20 08:00 97.5 F 84 18 121/57 92 L 09/22/20 04:00 99.5 F 84 22 110/58 92 L 09/22/20 00:00 99.0 F 82 20 116/57 91 L Pain Assessment - Last Documented Pain Intensity 5 Pain Scale Used 0-10 Pain Scale Intake and Output: Intake & Output 09/20/20 09/21/20 09/22/20 09/23/20 11:59 11:59 11:59 11:59 Intake Total 1788 1610 480 Output Total 1740 2750 1000 Balance 48 -1140 -520 Weight 113.5 kg 113.5 kg Lab Results: Lab Results-Last 24 Hours 09/22/20 09/22/20 Range/Units 04:42 09:18 Sodium 132 L (137-145) mmol/L Potassium 4.0 (3.5-5.1) mmol/L Chloride 98 (98-107) mmol/L Carbon Dioxide 27 (22-30) mmol/L Anion Gap 10.9 (5-15) MEQ/L BUN 14 (9-20) mg/dL Creatinine 0.85 (0.66-1.25) mg/dL Estimated GFR > 60.0 ML/MIN Glucose 135 H (74-106) mg/dL Calcium 8.8 (8.4-10.2) mg/dL Vancomycin Trough 7.96 L (10-20) ug/mL Radiology Exams: Radiology Procedures Category Date Time Status FOOT (MINIMUM 3 VIEWS) Routine Exams 09/21/20 09:59 Completed Multi-Disciplinary Progress Notes: Multi-Disciplinary Progress Notes 09/22/20 17:35 Physical Therapy Note by Breana Ordaz PT'S COMPRESSION DRESSING STILL INTACT. DISCUSSED PLAN W/ DR. GIANG AND HE WOULD LIKE FOR P.T. TO DO DRESSING CHANGE TOMORROW 09/23/[address] UPDATED PICTURES IN THE CHART. NOTED DECREASED EDEMA L LL. WILL COORDINATE DRESSING CHANGE W/ NSG SO HE CAN GET A BATH/SHOWER. BREANA ORDAZ, PT Initialized on 09/22/20 17:35 - END OF NOTE 09/22/20 12:18 Pharmacy Note by Vadim Taylor Vancomycin trough 8.0. Will change to q8h frequency to increase level. Initialized on 09/22/20 12:18 - END OF NOTE 09/22/20 10:01 Case Management Note by Celestina Yates S/W PATIENT .THIS AM- HE CONTINUES TO DENY ANY NEEDS REGARDING DC AT THIS TIME. HE REPORTS HE HAS TRANSPORTATION TO GET BACK AND FORTH FOR DRESSING CHANGES. WILL CONTINUE TO FOLLOW Initialized on 09/22/20 10:01 - END OF NOTE Assessment/Plan (1) Diabetic foot ulcer associated with type 2 diabetes mellitus Current Visit: Yes Status: Acute Qualifiers: Diabetic foot ulcer location: toe Laterality: left Non-pressure ulcer stage: limited to breakdown of skin Qualified Code(s): E11.621 - Type 2 diabetes mellitus with foot ulcer; L97.521 - Non-pressure chronic ulcer of other part of left foot limited to breakdown of skin Assessment & Plan: Patient had his lower leg wrapped by podiatry. He is on IV antibiotics and IV and PO pain medication. This appears to be chronic for patient. Will continue with current therapy per Dr Giang's recommendation Code(s): E11.621 - TYPE 2 DIABETES MELLITUS WITH FOOT ULCER; L97.509 - NON- PRESSURE CHRONIC ULCER OTH PRT UNSP FOOT W UNSP SEVERITY (2) Cellulitis of left leg Current Visit: No Status: Acute Assessment & Plan: Patient is on IV antibiotics vanc and zosyn. Will get repeat labs and work on de-escalation and transitioning to PO Code(s): L03.116 - CELLULITIS OF LEFT LOWER LIMB (3) Diabetes mellitus Current Visit: No Status: Chronic Qualifiers: Diabetes mellitus type: type 2 Diabetes mellitus exterminator insulin use: with [facility] use Diabetes mellitus complication status: with skin complications Diabetes mellitus complication detail: with other skin ulcer Qualified Code(s): E11.622 - Type 2 diabetes mellitus with other skin ulcer; Z79.4 - retirement (current) use of insulin Assessment & Plan: Patient will have accuchecks ACHS. Will continue on routine home meds. Patient on insulin pump. Diabetic diet Code(s): E11.9 - TYPE 2 DIABETES MELLITUS WITHOUT COMPLICATIONS (4) Constipation Current Visit: Yes Status: Acute Assessment & Plan: Patient likely has developed worsening constipation due to opiod medication. He was given colace and still has not had BM. Patient was given magnesium citrate today. Code(s): K59.00 - CONSTIPATION, UNSPECIFIED (5) Hypertension Current Visit: Yes Status: Acute Assessment & Plan: Will continue on routine home meds Code(s): I10 - ESSENTIAL (PRIMARY) HYPERTENSION
[2020-09-23] MEDS: Zosyn 3.375 GM Vial 3.375 GM in Sodium Chloride 100ML MINI-BAG PLUS 100 ML IV SCH ×5 (00:12→23:47)
[2020-09-23] MEDS: VANCOMYCIN 1 GRAM/200 ML BAG 1 GM/200 ML PIGGYBACK IV SCH ×4 (01:14→18:03)
[2020-09-23] MEDS: OXYCODONE-ACETAMINOPHEN 10-325 PO PRN ×2 (02:42→12:12)
[2020-09-23 05:26] LABS: Hematocrit 41.9 % (42-50); Hemoglobin 12.8 gm/dl (12.5-18.0); Mean Corpuscular Hemoglobin 25.7 pg (26-32); Mean Corpuscular Hgb Concent. 30.5 g/dl (32-36); Mean Platelet Volume 10.1 fl (7.5-11.0); Platelet Count 291 K/mm3 (150-450); Red Blood Count 4.99 M/mm3 (4.1-5.6); Red Cell Distribution Width 15.9 % (11.5-14.0); White Blood Count 11.3 K/mm3 (4.0-10.5)
[2020-09-23 05:41] LABS: ANION GAP 7.2 MEQ/L (5-15); BLOOD UREA NITROGEN 15 mg/dL (9-20); CHLORIDE 98 mmol/L (98-107); Calcium 8.7 mg/dL (8.4-10.2); Carbon Dioxide 32 mmol/L (22-30); Creatinine 1 1.01 mg/dL (0.66-1.25); EST GLOMERULAR FILTRATION RATE > 60.0 ML/MIN; Glucose 102 mg/dL (74-106); Potassium 4.3 mmol/L (3.5-5.1); SODIUM 133 mmol/L (137-145)
[2020-09-23 07:08] LABS: BAND 4 % (0.0-2.0); Basophil 1 % (0.0-1.0); Eosinophil 5 % (0.00-3.0); Lymphocytes 15 % (24-44); Monocyte 5 % (0.0-12.0); Neutrophils 70 % (36.-66.); Total Cells Counted 100
[2020-09-23 07:09] LABS: Platelet Estimate NORMAL (NORMAL)
[2020-09-23 07:10] LABS: Absolute Neutrophil Ct (ANC) 8.38 (1.4-6.9)
[2020-09-23] MEDS: Hydromorphone 1 mg/ml Injection IV PRN ×2 (07:31→17:18)
[2020-09-23] MEDS: LASIX 20 MG PO SCH (09:07)
[2020-09-23] MEDS: hydroDIURIL 25 MG PO SCH (09:07)
[2020-09-23] MEDS: ECOTRIN 81 MG PO SCH (09:07)
[2020-09-23] MEDS: NORVASC 5 MG PO SCH (09:08)
[2020-09-23] MEDS: Zestril 20 MG PO SCH (09:08)
[2020-09-23] MEDS: COREG 12.5 MG PO SCH ×2 (09:08→21:34)
[2020-09-23] MEDS ORDERED: PATIENT OWN MEDICATION SQ SCH (10:00)
[2020-09-23] MEDS: Colace 100 MG PO PRN (14:04)
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
[2020-09-23] MEDS: ZOCOR 20MG PO SCH (21:33)
[2020-09-24] MEDS: OXYCODONE-ACETAMINOPHEN 10-325 PO PRN ×3 (01:26→19:39)
[2020-09-24] MEDS: VANCOMYCIN 1 GRAM/200 ML BAG 1 GM/200 ML PIGGYBACK IV SCH ×3 (01:28→17:28)
[2020-09-24] MEDS: Zosyn 3.375 GM Vial 3.375 GM in Sodium Chloride 100ML MINI-BAG PLUS 100 ML IV SCH ×3 (06:04→17:28)
[2020-09-24 06:19] LABS: Hematocrit 41.1 % (42-50); Hemoglobin 12.6 gm/dl (12.5-18.0); Mean Cell Volume 83.9 fl (78-100); Mean Corpuscular Hemoglobin 25.7 pg (26-32); Mean Corpuscular Hgb Concent. 30.7 g/dl (32-36); Mean Platelet Volume 9.8 fl (7.5-11.0); Platelet Count 355 K/mm3 (150-450); White Blood Count 9.9 K/mm3 (4.0-10.5)
[2020-09-24 06:28] LABS: ANION GAP 8.4 MEQ/L (5-15); BLOOD UREA NITROGEN 13 mg/dL (9-20); CHLORIDE 101 mmol/L (98-107); Calcium 8.9 mg/dL (8.4-10.2); Carbon Dioxide 28 mmol/L (22-30); Creatinine 1 0.91 mg/dL (0.66-1.25); EST GLOMERULAR FILTRATION RATE > 60.0 ML/MIN; Glucose 111 mg/dL (74-106); Potassium 3.9 mmol/L (3.5-5.1); SODIUM 134 mmol/L (137-145)
[2020-09-24 06:29] LABS: ALBUMIN 3.6 g/dL (3.5-5.0); ALKALINE PHOSPHATASE 149 U/L (38-126); ANION GAP 9.4 MEQ/L (5-15); BLOOD UREA NITROGEN 13 mg/dL (9-20); CHLORIDE 101 mmol/L (98-107); Calcium 8.9 mg/dL (8.4-10.2); Carbon Dioxide 26 mmol/L (22-30); Creatinine 1 0.92 mg/dL (0.66-1.25); EST GLOMERULAR FILTRATION RATE > 60.0 ML/MIN; Glucose 110 mg/dL (74-106); Potassium 3.9 mmol/L (3.5-5.1); SGOT/AST 23 U/L (17-59); SGPT/ALT 30 U/L (0-50); SODIUM 133 mmol/L (137-145); Total Protein 6.5 g/dL (6.3-8.2)
--- NOTE | 2020-09-24 09:13 | PCM.NOTE ---
Date and Time: 09/24/20 0910 Subjective Assessment: patient reports improvement in LLE pain, redness. feels like he is improving Objective Exam General Appearance: no apparent distress, alert Wound Assessment: Skin/Wound Assessment Wound/Incision Assessment Start: 09/20/20 11:00 Text: Status: Active Freq: Q6H Protocol: Document 09/24/20 05:00 SG (Rec: 09/24/20 05:16 SG [id number]) Wound/Incision Assessment Left Lower Leg Wound Assessment Shift Assessment Wound Type Cellulitis Wound Stage Non Pressure Wound Dressing Status Dry & Intact Drainage Amount None General Appearance Clean/Dry Surrounding Tissue Bright Red,Dark Red Primary Dressing Gauze Roll/Wrap Secondary Dressing COBAN Comment dressing CDI, no drainage noted Wound Photo Photo Taken No Date: 09/20/20 Time: 11:00 Respiratory Exam: normal breath sounds, lungs clear, No respiratory distress Cardiovascular Exam: regular rate/rhythm, normal heart sounds Gastrointestinal/Abdomen Exam: soft, No tenderness, No mass Extremity Exam: other (dressing to LLE, photos in chart reviewed. erythema, chronic venous stasis changes evident with diabetic foot ulcer on 2nd toe) OBJECTIVE DATA Vital Signs: Vital Signs - 24 hr Temp Pulse Resp BP BP Pulse Ox 09/24/20 07:39 98.6 F 72 22 117/56 92 L 09/24/20 07:36 96 09/24/20 03:51 98.2 F 71 20 114/59 95 09/23/20 23:34 98.1 F 79 24 111/51 93 L 09/23/20 20:00 98.6 F 74 20 118/56 128/61 95 09/23/20 19:17 96 09/23/20 16:00 98.2 F 70 16 116/57 95 09/23/20 14:05 96 09/23/20 11:52 97.9 F 80 16 129/57 99 09/23/20 09:20 95 Pain Assessment - Last Documented Pain Intensity 4 Pain Scale Used 0-10 Pain Scale Intake and Output: Intake & Output 09/21/20 09/22/20 09/23/20 09/24/20 11:59 11:59 11:59 11:59 Intake Total 1788 1610 2189 2458 Output Total 1740 2750 1550 2000 Balance 48 -1140 639 458 Weight 113.5 kg Lab Results: Lab Results-Last 24 Hours 09/23/20 09/23/20 09/24/20 Range/Units 10:35 21:47 05:15 WBC (4.0-10.5) K/mm3 RBC (4.1-5.6) M/mm3 Hgb (12.5-18.0) gm/dl Hct (42-50) % MCV (78-100) fl MCH (26-32) pg MCHC (32-36) g/dl RDW (11.5-14.0) % Plt Count (150-450) K/mm3 MPV (7.5-11.0) fl Sodium 134 L (137-145) mmol/L Potassium 3.9 (3.5-5.1) mmol/L Chloride 101 (98-107) mmol/L Carbon Dioxide 28 (22-30) mmol/L Anion Gap 8.4 (5-15) MEQ/L BUN 13 (9-20) mg/dL Creatinine 0.91 (0.66-1.25) mg/dL Estimated GFR > 60.0 ML/MIN Glucose 111 H (74-106) mg/dL POC Glucometer 187 H 131 H (74 to 106) mg/dL Calcium 8.9 (8.4-10.2) mg/dL Total Bilirubin (0.2-1.3) mg/dL AST (17-59) U/L ALT (0-50) U/L Alkaline Phosphatase (38-126) U/L Serum Total Protein (6.3-8.2) g/dL Albumin (3.5-5.0) g/dL 09/24/20 09/24/20 Range/Units 05:15 05:15 WBC 9.9 (4.0-10.5) K/mm3 RBC 4.90 (4.1-5.6) M/mm3 Hgb 12.6 (12.5-18.0) gm/dl Hct 41.1 L (42-50) % MCV 83.9 (78-100) fl MCH 25.7 L (26-32) pg MCHC 30.7 L (32-36) g/dl RDW 16.0 H (11.5-14.0) % Plt Count 355 (150-450) K/mm3 MPV 9.8 (7.5-11.0) fl Sodium 133 L (137-145) mmol/L Potassium 3.9 (3.5-5.1) mmol/L Chloride 101 (98-107) mmol/L Carbon Dioxide 26 (22-30) mmol/L Anion Gap 9.4 (5-15) MEQ/L BUN 13 (9-20) mg/dL Creatinine 0.92 (0.66-1.25) mg/dL Estimated GFR > 60.0 ML/MIN Glucose 110 H (74-106) mg/dL POC Glucometer (74 to 106) mg/dL Calcium 8.9 (8.4-10.2) mg/dL Total Bilirubin 0.50 (0.2-1.3) mg/dL AST 23 (17-59) U/L ALT 30 (0-50) U/L Alkaline Phosphatase 149 H (38-126) U/L Serum Total Protein 6.5 (6.3-8.2) g/dL Albumin 3.6 (3.5-5.0) g/dL Multi-Disciplinary Progress Notes: Multi-Disciplinary Progress Notes 09/23/20 13:58 Case Management Note by Celestina Yates PATIENT CONTINUES TO DENY ANY NEW NEEDS REGARDING DC AT THIS TIME. PER PA[employer] BR[employer] MAKER ORDERS IT APPEARS PATIENT WILL RETURN TO HIS OFFICE FOR DRESSING CHANGES ON MON, WED, AND FRI. PATIENT REPORTS TRANSPORTATION WILL NOT BE AN ISSUES FOR THAT. Initialized on 09/23/20 13:58 - END OF NOTE 09/23/20 12:55 Physical Therapy Note by Breana Parks PT. SEEN BY P.T. THIS DATE FOR DRESSING CHANGE L LL CELLULITIS. PT. REPORTS L LL PN AT 4-11/21. PT. DENIED NEED FOR PN MED W/ DRESSING CHANGE. NOTED DECREASED L LL EDEMA. REMOVED COMPRESSION DRESSING THAT HAD BEEN APPLIED BY DR. GIANG'S NURSE. MINIMAL YELLOWISH SEROUS DRAINAGE NOTED AND ONLY ON FIRST LAYER. NOTED DECREASED BRIGHT RED COLOR TO TISSUE OF L LL. SEE PICS IN HARD CHART. CLEANSED L LL W/ SOAP AND WATER, APPLIED SMALL AMOUNT OF BETADYNE TO OPEN AREAS POSTERIOR LL, APPLIED BARRIER OINTMENT FOR SKIN HYDRATION/PROTECTION AND COVERED BLISTER AREAS W/ 4X4S, UNNA BOOT, KERLIX, AND COBAN. POSITIONED LES IN ELEVATED POSITION WHILE SITTING. WILL DISCUSS PLAN FOR COMPRESSION MG'T W/ DR. GIANG NEXT WEEK. BREANA SUSHMA, PT Initialized on 09/23/20 12:55 - END OF NOTE Assessment/Plan (1) Diabetic foot ulcer associated with type 2 diabetes mellitus Current Visit: Yes Status: Acute Qualifiers: Diabetic foot ulcer location: toe Laterality: left Non-pressure ulcer stage: limited to breakdown of skin Qualified Code(s): E11.621 - Type 2 diabetes mellitus with foot ulcer; L97.521 - Non-pressure chronic ulcer of other part of left foot limited to breakdown of skin Assessment & Plan: on vanc/zosyn, good coverage at this time. blood culture negative. plan to transition to po pain meds, will continue IV antibiotics and appreciate podiatry input Code(s): E11.621 - TYPE 2 DIABETES MELLITUS WITH FOOT ULCER; L97.509 - NON- PRESSURE CHRONIC ULCER OTH PRT UNSP FOOT W UNSP SEVERITY (2) Cellulitis of left leg Current Visit: No Status: Acute Code(s): L03.116 - CELLULITIS OF LEFT LOWER LIMB (3) Diabetes mellitus Current Visit: No Status: Chronic Qualifiers: Diabetes mellitus type: type 2 Diabetes mellitus lobsterman insulin use: with assisted use Diabetes mellitus complication status: with skin complications Diabetes mellitus complication detail: with other skin ulcer Qualified Code(s): E11.622 - Type 2 diabetes mellitus with other skin ulcer; Z79.4 - long term care administrator (current) use of insulin Code(s): E11.9 - TYPE 2 DIABETES MELLITUS WITHOUT COMPLICATIONS
[2020-09-24] MEDS: ECOTRIN 81 MG PO SCH (09:30)
[2020-09-24] MEDS ORDERED: TROUGH DRUG LEVELS IJ ONE (09:30)
[2020-09-24] MEDS: Zestril 20 MG PO SCH (09:30)
[2020-09-24] MEDS: hydroDIURIL 25 MG PO SCH (09:30)
[2020-09-24] MEDS: NORVASC 5 MG PO SCH (09:30)
[2020-09-24] MEDS: LASIX 20 MG PO SCH (09:30)
[2020-09-24] MEDS: COREG 12.5 MG PO SCH ×2 (09:31→21:14)
[2020-09-24 10:09] LABS: BAND 1 % (0.0-2.0); Eosinophil 5 % (0.00-3.0); Lymphocytes 14 % (24-44); Monocyte 9 % (0.0-12.0); Neutrophils 71 % (36.-66.); Platelet Estimate NORMAL (NORMAL); Total Cells Counted 100
[2020-09-24 10:10] LABS: Polychromasia 1+
[2020-09-24] MEDS ORDERED: Zofran 4 MG/2 ML VIAL IV PRN (13:55)
[2020-09-24] MEDS: ZOCOR 20MG PO SCH (21:14)
[2020-09-25] MEDS: Zosyn 3.375 GM Vial 3.375 GM in Sodium Chloride 100ML MINI-BAG PLUS 100 ML IV SCH ×2 (00:12→05:47)
[2020-09-25] MEDS: VANCOMYCIN 1 GRAM/200 ML BAG 1 GM/200 ML PIGGYBACK IV SCH ×2 (01:10→09:35)
[2020-09-25 05:48] LABS: Hematocrit 43.8 % (42-50); Hemoglobin 13.4 gm/dl (12.5-18.0); Mean Cell Volume 83.7 fl (78-100); Mean Corpuscular Hemoglobin 25.6 pg (26-32); Mean Corpuscular Hgb Concent. 30.6 g/dl (32-36); Mean Platelet Volume 9.6 fl (7.5-11.0); Platelet Count 416 K/mm3 (150-450); Red Blood Count 5.23 M/mm3 (4.1-5.6); Red Cell Distribution Width 16.1 % (11.5-14.0); White Blood Count 8.1 K/mm3 (4.0-10.5)
[2020-09-25 06:10] LABS: ALBUMIN 3.3 g/dL (3.5-5.0); ALKALINE PHOSPHATASE 149 U/L (38-126); ANION GAP 10.1 MEQ/L (5-15); BLOOD UREA NITROGEN 15 mg/dL (9-20); CHLORIDE 102 mmol/L (98-107); Calcium 9.2 mg/dL (8.4-10.2); Carbon Dioxide 27 mmol/L (22-30); Creatinine 1 0.91 mg/dL (0.66-1.25); EST GLOMERULAR FILTRATION RATE > 60.0 ML/MIN; Glucose 116 mg/dL (74-106); Potassium 4.5 mmol/L (3.5-5.1); SGOT/AST 24 U/L (17-59); SGPT/ALT 32 U/L (0-50); SODIUM 135 mmol/L (137-145); Total Protein 5.9 g/dL (6.3-8.2)
[2020-09-25 07:48] VITALS: BP 118/55; PULSE 64; O2SAT 93
[2020-09-25] MEDS: ECOTRIN 81 MG PO SCH (07:56)
[2020-09-25] MEDS: Zestril 20 MG PO SCH (07:56)
[2020-09-25] MEDS: OXYCODONE-ACETAMINOPHEN 10-325 PO PRN (07:56)
[2020-09-25] MEDS: hydroDIURIL 25 MG PO SCH (07:57)
[2020-09-25] MEDS: NORVASC 5 MG PO SCH (07:57)
[2020-09-25] MEDS: LASIX 20 MG PO SCH (07:57)
[2020-09-25] MEDS: COREG 12.5 MG PO SCH (07:57)
--- NOTE | 2020-09-25 09:49 | PCM.DS ---
Discharge Summary Date of Admission: 09/20/20 10:06 Admitting Physician: DIRK AYALA Consults: Consults on Case 09/20/20 10:06 Consult Podiatry ROUTINE Primary Care Provider: DIRK AYALA Allergies Allergies bacitracin [From Neosporin] Allergy (Mild, Verified 04/24/20 09:04) Blisters neosporin ointment bacitracin zinc [From Neosporin] Allergy (Mild, Verified 04/24/20 09:04) Blisters neosporin ointment benzalkonium chloride [From Neosporin] Allergy (Mild, Verified 04/24/20 09:04) Blisters neosporin ointment gramicidin D [From Neosporin] Allergy (Mild, Verified 04/24/20 09:04) Blisters neosporin ointment hydrocortisone [From Neosporin] Allergy (Mild, Verified 04/24/20 09:04) Blisters neosporin ointment neomycin sulfate [From Neosporin] Allergy (Mild, Verified 04/24/20 09:04) Blisters neosporin ointment polymyxin B [From Neosporin] Allergy (Mild, Verified 04/24/20 09:04) Blisters neosporin ointment polymyxin B sulfate [From Neosporin] Allergy (Mild, Verified 04/24/20 09:04) Blisters neosporin ointment liraglutide [From Victoza] Allergy (Verified 04/24/20 09:04) morphine Adverse Reaction (Intermediate, Verified 04/24/20 09:04) hallucinate Hospital Summary - Hospital Course Hospital Course: patient admitted with cellulitis LLE with associated diabetic foot ulcer, seen by Dr Spangler and ulcer is improving. pain is much better controlled now and cellulitis is improved - Vitals & Intake/Output Vital Signs: Vital Signs Temperature 98.4 F 09/25/20 07:48 Pulse Rate 64 09/25/20 07:48 Respiratory Rate 15 09/25/20 07:48 Blood Pressure 118/55 09/25/20 07:48 O2 Sat by Pulse Oximetry 93 L 09/25/20 07:48 Intake & Output: Intake & Output 09/22/20 09/23/20 09/24/20 09/25/20 11:59 11:59 11:59 12:59 Intake Total 1610 2189 2458 1970 Output Total 2750 1550 1999 2053 Balance -1140 639 458 -84 Weight 113.5 kg - Lab Result Diagrams: 09/25/20 05:20 09/25/20 05:20 Lab Results-Last 24 Hrs: Lab Results-Last 24 Hours 09/24/20 09/24/20 09/25/20 Range/Units 05:15 09:30 05:20 WBC 8.1 (4.0-10.5) K/mm3 RBC 5.23 (4.1-5.6) M/mm3 Hgb 13.4 (12.5-18.0) gm/dl Hct 43.8 (42-50) % MCV 83.7 (78-100) fl MCH 25.6 L (26-32) pg MCHC 30.6 L (32-36) g/dl RDW 16.1 H (11.5-14.0) % Plt Count 416 (150-450) K/mm3 MPV 9.6 (7.5-11.0) fl Segmented Neutrophils 71 H (36.-66.) % Band Neutrophils 1 (0.0-2.0) % Lymphocytes (Manual) 14 L (24-44) % Monocytes (Manual) 9 (0.0-12.0) % Eosinophils (Manual) 5 H (0.00-3.0) % Platelet Estimate NORMAL (NORMAL) RBC Morphology NORMAL Polychromasia 1+ Sodium (137-145) mmol/L Potassium (3.5-5.1) mmol/L Chloride (98-107) mmol/L Carbon Dioxide (22-30) mmol/L Anion Gap (5-15) MEQ/L BUN (9-20) mg/dL Creatinine (0.66-1.25) mg/dL Estimated GFR ML/MIN Glucose (74-106) mg/dL Calcium (8.4-10.2) mg/dL Total Bilirubin (0.2-1.3) mg/dL AST (17-59) U/L ALT (0-50) U/L Alkaline Phosphatase (38-126) U/L Serum Total Protein (6.3-8.2) g/dL Albumin (3.5-5.0) g/dL Vancomycin Trough 14.33 (10-20) ug/mL 09/25/20 Range/Units 05:20 WBC (4.0-10.5) K/mm3 RBC (4.1-5.6) M/mm3 Hgb (12.5-18.0) gm/dl Hct (42-50) % MCV (78-100) fl MCH (26-32) pg MCHC (32-36) g/dl RDW (11.5-14.0) % Plt Count (150-450) K/mm3 MPV (7.5-11.0) fl Segmented Neutrophils (36.-66.) % Band Neutrophils (0.0-2.0) % Lymphocytes (Manual) (24-44) % Monocytes (Manual) (0.0-12.0) % Eosinophils (Manual) (0.00-3.0) % Platelet Estimate (NORMAL) RBC Morphology Polychromasia Sodium 135 L (137-145) mmol/L Potassium 4.5 (3.5-5.1) mmol/L Chloride 102 (98-107) mmol/L Carbon Dioxide 27 (22-30) mmol/L Anion Gap 10.1 (5-15) MEQ/L BUN 15 (9-20) mg/dL Creatinine 0.91 (0.66-1.25) mg/dL Estimated GFR > 60.0 ML/MIN Glucose 116 H (74-106) mg/dL Calcium 9.2 (8.4-10.2) mg/dL Total Bilirubin 0.30 (0.2-1.3) mg/dL AST 24 (17-59) U/L ALT 32 (0-50) U/L Alkaline Phosphatase 149 H (38-126) U/L Serum Total Protein 5.9 L (6.3-8.2) g/dL Albumin 3.3 L (3.5-5.0) g/dL Vancomycin Trough (10-20) ug/mL Micro Results-Entire Visit: Microbiology 09/20/20 11:35 Blood Culture Gram Stain - Final Blood Not Reportable Blood Culture - Final NO GROWTH Accuchecks Date 09/25/20 Date 09/24/20 Date 09/24/20 Date 09/24/20 Time 21:00 - Procedures and Test Procedures and Tests throughout Hospitalization: Therapy Orders & Screens 09/20/20 10:41 PT Screen per Nursing Assess ONCE Comment: Protocol Order Physician Instructions: Greater than 3 points order PT Admission Screenin Reason For Exam: Triggered on Admission Diagnosis: cellulitis Open Wound/Cellutlitis/Pressure Ulcers: Yes Acute Fx/ORIF/Change in wt bearing status: No Severe MUSCULOSKELETAL pain: No ADL Dysfunction: No Acute CVA w/Hemiparesis/Hemiplegia: No Decreased Functional Mobility/Strength: No Sprain/Strain: No Acute Post-op Mobility Dysfunction: No Total Points: 5 09/20/20 11:22 PT Eval & Treat (MD Order) ONCE Reason for Eval:: CELLULITIS LLE Diagnosis: cellulitis 09/23/20 00:31 Oxygen Nasal Cannula 2 lpm Comment: Diagnosis: cellulitis Discharge Exam General Appearance: no apparent distress, alert Respiratory Exam: normal breath sounds, lungs clear, No respiratory distress Cardiovascular Exam: regular rate/rhythm, normal heart sounds Gastrointestinal/Abdomen Exam: soft, No tenderness, No mass Extremity Exam: other (dressing to LLE, erythema improved) Wound Assessment: Skin/Wound Assessment Wound/Incision Assessment Start: 09/20/20 11:00 Text: Status: Active Freq: Q6H Protocol: Document 09/25/20 06:00 SG (Rec: 09/25/20 06:37 SG [id number]) Wound/Incision Assessment Left Lower Leg Wound Assessment Shift Assessment Wound Type Cellulitis Wound Stage Non Pressure Wound Dressing Status Dry & Intact Drainage Amount None General Appearance Clean/Dry Surrounding Tissue Bright Red Primary Dressing Gauze Roll/Wrap Secondary Dressing COBAN Comment dressing CDI. Final Diagnosis/Problem List - Final Discharge Diagnosis/Problem (1) Diabetic foot ulcer associated with type 2 diabetes mellitus Current Visit: Yes Status: Acute Code(s): E11.621 - TYPE 2 DIABETES MELLITUS WITH FOOT ULCER; L97.509 - NON-PRESSURE CHRONIC ULCER OTH PRT UNSP FOOT W UNSP SEVERITY (2) Cellulitis of left leg Current Visit: No Status: Acute Code(s): L03.116 - CELLULITIS OF LEFT LOWER LIMB (3) Diabetes mellitus Current Visit: No Status: Chronic Code(s): E11.9 - TYPE 2 DIABETES MELLITUS WITHOUT COMPLICATIONS - Discharge Disposition: Home, Self-Care Condition: Stable Prescriptions: New Clindamycin HCl 300 mg PO QID #28 capsule Oxycodone / APAP 10/325 mg [Oxycodone-Acetaminophen 10-325] 1 tab PO Q6H PRN PRN #28 tablet MDD 4 PRN Reason: Pain Continue Simvastatin 20Mg [Zocor 20Mg] 40 mg PO QHS Hydrochlorothiazide 12.5 mg PO DAILY Metformin HCl 1,000 mg PO BID Carvedilol 12.5 mg [Coreg 12.5 mg] 12.5 mg PO BID Amlodipine Besylate 5 mg [Norvasc 5 mg] 10 mg PO DAILY lisinopriL [Lisinopril] 20 mg PO DAILY Empagliflozin [Jardiance] 25 mg PO DAILY Semaglutide [Ozempic] See Protocol IM WEEKLY Furosemide 20 mg [Lasix 20 mg] 20 mg PO DAILY Aspirin 81 gm Chew [Baby Aspirin 81 mg Chew] 81 mg PO DAILY Insulin Aspart [Novolog] 1 units SQ UD Follow up with: DIRK AYALA [Primary Care Provider] - 1 Week
[2020-09-25 10:53] LABS: Basophil 1 % (0.0-1.0); Eosinophil 9 % (0.00-3.0); Lymphocytes 23 % (24-44); Monocyte 12 % (0.0-12.0); Neutrophils 55 % (36.-66.); Platelet Estimate NORMAL (NORMAL); Total Cells Counted 100
[2020-09-25 10:54] LABS: Polychromasia 1+
== END 2020-09-25 11:30 | disposition home or self-care (01) | DRG 638 ==
LOC: MED SURG 10:06
PROVIDERS: ADMIT Family Medicine; ATTEND Family Medicine
DX: E11.621 Type 2 diabetes mellitus with foot ulcer (principal); L03.116 Cellulitis of left lower limb; L97.521 Non-pressure chronic ulcer of other part of left foot limited to breakdown of skin; I10 Essential (primary) hypertension; F41.9 Anxiety disorder, unspecified; F32.9 Major depressive disorder, single episode, unspecified; R53.83 Other fatigue; Z79.4 Long term (current) use of insulin; Z79.899 Other long term (current) drug therapy; I25.10 Atherosclerotic heart disease of native coronary artery without angina pectoris
CPT/HCPCS: 0241U; 11042; 17110; 36415; 73630; 80048; 80053; 80202; 82550; 82947; 84145; 85025; 85652; 86140; 87040; 93971; 94760; 99213; 99232; 99252; J1170; J1817; J2405; A9270-GY; J3370

== ENCOUNTER 2021-03-04 18:31 | Emergency (ER) | payer BC, MEDICARE ==
[2021-03-04] MEDS ORDERED: XYLOCAINE 1% HCL 20 ML MDV IJ ONE (18:32)
[2021-03-04] MEDS ORDERED: Sodium Chloride 0.9% 1000 ML 1,000 ML IV SCH (18:45)
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
[2021-03-04 19:00] LABS: BASOPHIL % 0.3 % (0.0-0.4); Basophil (Absolute #) 0.03 (0-0.4); Eosinophil (Absolute #) 0.19 (0-0.5); Hematocrit 46.4 % (42-50); Hemoglobin 14.5 gm/dl (12.5-18.0); Lymphocyte (Absolute #) 1.74 (1.0-4.6); Lymphocytes % 18.3 % (24.0-44.0); Mean Cell Volume 82.4 fl (78-100); Mean Corpuscular Hemoglobin 25.8 pg (26-32); Mean Corpuscular Hgb Concent. 31.3 g/dl (32-36); Mean Platelet Volume 9.8 fl (7.5-11.0); Monocyte (Absolute #) 0.97 (0.0-1.3); Monocytes % 10.2 % (0.0-12.0); Neutrophil % 69.2 % (36.0-66.0); Platelet Count 384 K/mm3 (150-450); Red Blood Count 5.63 M/mm3 (4.1-5.6); Red Cell Distribution Width 16.3 % (11.5-14.0); White Blood Count 9.5 K/mm3 (4.0-10.5)
[2021-03-04] MEDS ORDERED: Sodium Chloride 0.9% 1000 ML 1,000 ML ONE (19:06)
[2021-03-04 19:16] LABS: ALBUMIN 4.3 g/dL (3.5-5.0); ALKALINE PHOSPHATASE 99 U/L (38-126); ANION GAP 15.2 MEQ/L (5-15); BLOOD UREA NITROGEN 22 mg/dL (9-20); CHLORIDE 98 mmol/L (98-107); Calcium 9.8 mg/dL (8.4-10.2); Carbon Dioxide 30 mmol/L (22-30); Creatinine 1 0.98 mg/dL (0.66-1.25); EST GLOMERULAR FILTRATION RATE > 60.0 ML/MIN; Glucose 111 mg/dL (74-106); Potassium 3.9 mmol/L (3.5-5.1); SGOT/AST 31 U/L (17-59); SGPT/ALT 29 U/L (0-50); SODIUM 139 mmol/L (137-145); Total Protein 7.9 g/dL (6.3-8.2)
[2021-03-04] MEDS ORDERED: Rocephin 1000 MG INJ IM ONE (21:47)
[2021-03-04] MEDS ORDERED: ENOXAPARIN SODIUM SQ STA (21:48)
[2021-03-04] MEDS ORDERED: ENOXAPARIN SODIUM SQ ONE (22:28)
[2021-03-04] MEDS ORDERED: Rocephin 1000 MG INJ ONE (22:28)
[2021-03-04 22:57] VITALS: BP 134/72; PULSE 78; O2SAT 97
== END 2021-03-04 22:54 | disposition home or self-care (01) ==
LOC: ED 18:31
DX: L03.116 Cellulitis of left lower limb (principal); M79.89 Other specified soft tissue disorders
CPT/HCPCS: 36415; 80053; 83605; 85025; 87040; 96372; 99284; J0696; J1650

== ENCOUNTER 2021-03-24 06:11 | Day surgery (SDC) | payer MEDICARE, OTHER ==
[2021-03-24] MEDS ORDERED: BUPIVACAINE 0.5% VIAL IJ ONE (06:38)
[2021-03-24] MEDS ORDERED: XYLOCAINE 1% HCL 20 ML MDV ONE (06:38)
[2021-03-24] MEDS ORDERED: Lactated Ringers 1,000 ML IV ONE ×2 (06:40→07:00)
[2021-03-24] MEDS ORDERED: CEFAZOLIN 2 GM-D5W BAG** 2 GM/50 ML ML IV SCH (07:00)
[2021-03-24] MEDS ORDERED: Lactated Ringers 1,000 ML IV SCH (07:00)
[2021-03-24] MEDS ORDERED: Versed 2 MG/2 ML Injection ONE (08:09)
[2021-03-24] MEDS ORDERED: SUBLIMAZE 100 MCG/2 ML ONE (08:09)
[2021-03-24] MEDS ORDERED: DIPRIVAN 200 MG/20 ML IV ONE ×2 (08:09→09:04)
[2021-03-24 10:23] VITALS: BP 124/61; PULSE 80; O2SAT 95
--- NOTE | 2021-03-24 13:50 | OP ---
SURGERY DATE/TIME: 03/24/2021 0828 PREOPERATIVE DIAGNOSES: 1) Chronic osteomyelitis. 2) Diabetic foot wound. 3) Left foot pain. POSTOPERATIVE DIAGNOSES: 1) Chronic osteomyelitis. 2) Diabetic foot wound. 3) Left foot pain. PROCEDURE: Partial excision/diaphysectomy of proximal phalanx of second digit left foot. SURGEON: Aníbal Myers DPM. GYMNASIUM TEACHER: None. ANESTHESIA: MAC plus local. HEMOSTASIS: Pressure dressing. ESTIMATED BLOOD LOSS: Less than 5 cc. MATERIALS: 2-0 Monocryl, 3-0 Nylon. INJECTABLES: 10 cc of a 1:1 mixture of 1% lidocaine plain and 0.5% bupivacaine plain injected in a digital block-type fashion to the second digit of the left foot. INDICATION FOR SURGERY: Pete is a very pleasant 65-year-old male who is well known to my service. Initially the patient presented with ulcerations to the second digit of the left toe and after repeated courses of healing the wound out had return of the digital ulcer. The patient has had multiple bouts of cellulitis as a result and has caused him more problems and pain keeping the toe as he initially requested than having it amputated at this time. The patient understands due to the chronic nature of the ulceration there may be osteomyelitis for which pathological assessment was deemed appropriate today. In order to prevent any deviation in digits surrounding the second digit we opted for a partial excision at the diaphysis of the second proximal phalanx in order to prevent any abnormal deviation and new transfer lesion development. With all this the patient understands the risks, complications and benefits to the procedure all of which were discussed at length and the patient agrees to proceed at this time. No guarantees were provided as to the outcome of the surgery and with this the patient wishes to proceed. DESCRIPTION OF PROCEDURE AND FINDINGS: The patient was brought into the OR and placed on the OR table in the supine position. After MAC anesthesia was provided, a time out was called identifying patient factors. At this time a digital block was performed utilizing a 1:1 mixture of 1% lidocaine plain and 0.5% bupivacaine plain injected in a digital block-type fashion to the left foot. Following this the left lower extremity was prepped and draped and lowered onto the surgical field. At this time a skin marker was utilized to draw out a fish-mouth incision with the dorsal and plantar racquet in order to get as proximal as possible while still maintaining the soft tissue attachments to the base of the proximal phalanx. At this time 15 blade was utilized to make an incision down to bone following the fish-mouth pattern perpendicular to the skin plane providing full thickness dissection down to the level of bone. At this time a sagittal saw was utilized to resect the proximal phalanx at the diaphysis. This was handed off the field and sent for pathological assessment. Following this an additional border was resected from the proximal phalanx and this was sent for clean margins. Following this copious amounts of sterile saline were utilized to flush the surgical site. A 2-0 Monocryl was utilized to coapt the subcutaneous tissue in a deep buried-type fashion. Following this 3-0 Nylon was utilized in simple interrupted in order to coapt the skin edges under minimal tension. At this time postoperative dressing consisting of Betadine, Adaptic, 4x4 and Danny was applied to the foot. At this time an Unna boot was applied to the left lower extremity as the patient has a chronic history of venous insufficiency and repeated bouts of swelling to the left lower extremity, this was to stabilize him from him from dehiscence during the immediate postoperative period this was applied to the left lower extremity with Kerlix and 4 inch Coban applied with minimal compression. The patient was provided a surgical shoe to ambulate him. At this time MAC anesthesia was reversed and the patient was brought to the postoperative anesthesia care unit with vital signs stable and vascular status intact. The patient handled the anesthesia as well as the procedure without complication. Postoperative orders as indicated in the patient's postoperative chart.
== END 2021-03-24 10:35 | disposition home or self-care (01) ==
LOC: SDC 06:11
PROVIDERS: ATTEND Podiatrist Foot & Ankle Surgery
DX: M86.672 Other chronic osteomyelitis, left ankle and foot (principal); S91.302A Unspecified open wound, left foot, initial encounter; E13.69 Other specified diabetes mellitus with other specified complication; M79.672 Pain in left foot; Z79.4 Long term (current) use of insulin; Z79.899 Other long term (current) drug therapy
CPT/HCPCS: 28124; 29580; 82947; 88305; 88311; J0690; J2250; J2704; J3010

== ENCOUNTER 2024-03-11 18:24 | Inpatient (IN) | payer MEDICARE ==
[2024-03-11] MEDS ORDERED: DUONEB 0.5-3 MG/3 ml Neb IH ONE (18:38)
[2024-03-11] MEDS: DUONEB 0.5-3 MG/3 ml Neb IH ONE (18:39)
--- NOTE | 2024-03-11 18:48 | ERPHSYRPT ---
- History of Present Illness Source: patient Exam Limitations: no limitations Patient Subjective Stated Complaint: C/O SOB for the past few days that is much worse today. Denies chest pain. Triage Nursing Assessment: Patient brought back to ER in a W/C. He is alert and oriented. He is SOB. 02 sat 86% on room air. 02 @ 5L per N/C applied and 02 sats increased to 93%. Pitting/Weeping edema noted to BLE. Dr. Ross in room and listened to lung sounds. Hx Tetanus, Diphtheria Vaccination/Date Given: Yes Hx Influenza Vaccination/Date Given: Yes Hx Pneumococcal Vaccination/Date Given: No Immunizations Up to Date: Yes <ALVARO ROSS - Last Filed: 03/11/24 18:43> <SARY HUMMEL - Last Filed: 03/11/24 20:53> - History of Present Illness Time Seen by Provider: 03/11/24 18:28 Physician History: Patient is here with shortness of breath. Has been going on the past few days. Worse today. Patient walked in he was 86% on room air, visibly short of breath, increased work of breathing. Patient most likely has had allergies the past few days and has been getting worse. He has not taken any home COVID tests. No falls no trauma. Patient had a recent echocardiogram. States that he may have some left ventricle dysfunction. No chest pain. Patient has had some lower extremity edema, weeping. (ALVARO ROSS) Allergies/Adverse Reactions: bacitracin [From Neosporin] Allergy (Mild, Verified 03/11/24 18:26) Blisters neosporin ointment bacitracin zinc [From Neosporin] Allergy (Mild, Verified 03/11/24 18:26) Blisters neosporin ointment benzalkonium chloride [From Neosporin] Allergy (Mild, Verified 03/11/24 18:26) Blisters neosporin ointment gramicidin D [From Neosporin] Allergy (Mild, Verified 03/11/24 18:26) Blisters neosporin ointment hydrocortisone [From Neosporin] Allergy (Mild, Verified 03/11/24 18:26) Blisters neosporin ointment neomycin sulfate [From Neosporin] Allergy (Mild, Verified 08/28/24 18:26) Blisters neosporin ointment polymyxin B [From Neosporin] Allergy (Mild, Verified 03/11/24 18:26) Blisters neosporin ointment polymyxin B sulfate [From Neosporin] Allergy (Mild, Verified 03/11/24 18:26) Blisters neosporin ointment adhesive tape Allergy (Verified 03/11/24 18:26) liraglutide [From Victoza] Allergy (Verified 03/11/24 18:26) morphine Adverse Reaction (Intermediate, Verified 03/11/24 18:26) hallucinate Home Medications: Simvastatin 20Mg [Zocor 20Mg] 40 mg PO QHS 11/21/11 [History] Amlodipine Besylate 5 mg [Norvasc 5 mg] 10 mg PO DAILY 06/06/18 [History] Carvedilol 12.5 mg [Coreg 12.5 mg] 12.5 mg PO BID 06/06/18 [History] Metformin HCl 1,000 mg PO BID 06/06/18 [History] Aspirin 81 gm Chew [Baby Aspirin 81 mg Chew] 81 mg PO DAILY 04/24/20 [History] Insulin Aspart [Novolog] 1 units SQ UD 04/24/20 [History] Gabapentin [Neurontin ] 300 mg PO TID 03/11/24 [History] Primidone 50 MG [Mysoline 50Mg] 50 mg PO TID 03/11/24 [History] lisinopriL [Zestril] 30 mg PO DAILY 03/11/24 [History] Travel Risk - International Travel Have you traveled outside of the country in past 3 weeks: No - Emerging Infectious Disease Are you exhibiting symptoms associated with any current EIDs: Yes Symptoms: Cough: New Onset, Fever, Shortness of Breath <ALVARO ROSS - Last Filed: 03/11/24 18:43> - Past Medical History Pertinent Past Medical History: Yes Neurological History: No Pertinent History, Peripheral Neuropathy ENT History: No Pertinent History Cardiac History: Coronary Artery Disease, High Cholesterol, Hypertension, Other Respiratory History: No Pertinent History Endocrine Medical History: Diabetes Type II Musculoskeletal History: Osteoarthritis GI Medical History: No Pertinent History History: No Pertinent History Psycho-Social History: No Pertinent History Male Reproductive Disorders: No Pertinent History Other Medical History: Pulmonary HTN, recent Echo shows left ventricular issue and patient is scheduled to see supervisor small appliance assembly, Dr. Kilgore for the first time on 03/18/24. - Past Surgical History Past Surgical History: Yes Neuro Surgical History: No Pertinent History Cardiac: Cardiac Catheterization Respiratory: No Pertinent History Gastrointestinal: Cholecystectomy Genitourinary: No Pertinent History Musculoskeletal: Orthopedic Surgery Male Surgical History: No Pertinent History Other Surgical History: bilateral legs - Social History Smoking Status: Never smoker Exposure to second hand smoke: No Drug Use: none Patient Lives Alone: No - Social Determinants of Health Will the patient participate in the screening: Yes Do you worry about a steady place to live?: No Do you have any problems with any of the following?: No known problems In the past 12 months,have you had to go without utilities?: No Transportation Issues: No Has anyone in your support network made you feel unsafe?: No Have you or anyone in your house had to go without enough: No <ALVARO ROSS - Last Filed: 03/11/24 18:43> - Physical Exam SpO2 Interpretation: hypoxic SpO2: 86 <ALVARO ROSS - Last Filed: 03/11/24 18:43> - Nursing Vital Signs Nursing Vital Signs: Initial Vital Signs Temperature 99.5 F 03/11/24 18:27 Pulse Rate 89 03/11/24 18:27 Respiratory Rate 34 H 03/11/24 18:27 Blood Pressure 137/70 03/11/24 18:27 O2 Sat by Pulse Oximetry 86 L 03/11/24 18:27 Pain Scale Pain Intensity 0 - Physical Exam Comments: 03/11/24 18:45 Review of Systems Constitutional: Negative for fever. HENT: Negative for congestion. Respiratory: Increased work of breathing, shortness of breath, lower extremity edema Cardiovascular: Negative for chest pain. Lower extremity edema, weeping Gastrointestinal: Negative for abdominal pain. Genitourinary: Negative for dysuria. Musculoskeletal: Negative for back pain. Skin: Negative for rash. Neurological: Negative for headaches. Psychiatric/Behavioral: Negative for behavioral problems. All other systems reviewed and are negative. Physical Exam Vitals signs and nursing note reviewed. Constitutional: Appearance: Patient is well-developed. HENT: Head: Normocephalic and atraumatic. Eyes: Conjunctiva/sclera: Conjunctivae normal. Neck: Musculoskeletal: Normal range of motion. Trachea: No tracheal deviation. Cardiovascular: Rate and Rhythm: Normal rate. Lower extremity edema, 2+ pitting edema, weeping Pulmonary: Effort: Increased work of breathing, hypoxia, more comfortable on 5 L now, crackles and wheezes throughout Abdominal: Palpations: Abdomen is soft. Musculoskeletal: General: No deformity. Skin: General: Skin is warm and dry. Neurological/ Psychiatric: Mental Status: Mental status, behavior, interaction with environment is appropriate for patient's age and condition (ALVARO ROSS) - Course Nursing assessment & vital signs reviewed: Yes EKG Interpreted by Me: Sinus Rhythm <ALVARO ROSS - Last Filed: 03/11/24 18:43> - Radiology Exams Chest X-ray Interpretation: Teleradiologist Report (Bilateral pneumonia) <SARY HUMMEL - Last Filed: 03/11/24 20:53> Ordered Tests: Active Orders 24 hr Category Date Time Status EKG-ER Only STAT Care 03/11/24 18:35 Active IV Insertion STAT Care 03/11/24 18:35 Active IV Insertion-2nd Peripheral STAT Care 03/11/24 18:46 Active CHEST 1 VIEW (PORTABLE) Stat Exams 03/11/24 18:37 Taken ABG [ARTERIAL BLOOD GASES] Stat Lab 03/11/24 18:54 Completed BLOOD CULTURE Stat Lab 03/11/24 18:53 Received CBC W DIFF Stat Lab 03/11/24 18:45 Completed CMP Stat Lab 03/11/24 18:45 Completed D-DIMER QUANTITATIVE Stat Lab 03/11/24 18:45 Completed Lactic Acid Stat Lab 03/11/24 19:00 Completed NT PRO BNPII Stat Lab 03/11/24 18:45 Completed TROPONIN Q4H Lab 03/11/24 18:45 Completed TROPONIN Q4H Lab 03/11/24 22:45 Ordered TROPONIN Q4H Lab 03/12/24 02:45 Ordered Respiratory Therapy Assessment DAILY RT 03/11/24 18:35 Active Transfer Order Routine Transfer 03/11/24 Ordered Medication Summary Generic Name Dose Route Start Last Admin Trade Name Freq PRN Reason Stop Dose Admin Ceftriaxone Sodium 2 gm in 100 mls @ 200 mls/hr 03/11/24 20:34 03/11/24 20:42 Rocephin 2 Gm/100 Ml Nacl IV 03/11/24 21:03 200 ml/hr STAT ONE 200 mls/hr Administration Discontinued Medications Generic Name Dose Route Start Last Admin Trade Name Gardenia PRRaffaele Reason Stop Dose Admin Albuterol/Ipratropium 3 ml 03/11/24 18:35 03/11/24 18:39 Ipratropium/Albuterol Sulfate 3 Ml Ampul.Neb IH 03/11/24 18:36 3 ml STAT ONE Administration Albuterol/Ipratropium Confirm 03/11/24 18:38 Ipratropium/Albuterol Sulfate 3 Ml Ampul.Neb Administered 03/11/24 18:39 Dose 3 ml IH .STK-MED ONE Methylprednisolone Sodium 0 mg 03/11/24 18:35 03/11/24 18:56 Succinate 125 mg/ Sterile IV 03/11/24 18:36 125 mg Water 2 ml STAT ONE Administration Azithromycin 500 mg in 250 mls @ 250 mls/hr 03/11/24 18:35 03/11/24 19:55 Zithromax 500 Mg/ 250 Ml Nacl Premix IV 03/11/24 19:34 Infused STAT STA Infusion Azithromycin Confirm 03/11/24 18:55 Zithromax 500 Mg/ 250 Ml Nacl Premix Administered 03/11/24 18:56 Dose 500 mg in 250 mls @ ud IV .STK-MED ONE Ceftriaxone Sodium Confirm 03/11/24 20:40 Rocephin 2 Gm/100 Ml Nacl Administered 03/11/24 20:41 Dose 2 gm in 100 mls @ ud IV .STK-MED ONE Methylprednisolone Sodium Succinate Confirm 03/11/24 18:55 Methylprednis Sod Succ 125 Mg/2 Ml Vial Administered 03/11/24 18:56 Dose 125 mg .ROUTE .STK-MED ONE Sterile Water Confirm 03/11/24 18:55 Water For Injection,Sterile 10 Ml Vial Administered 03/11/24 18:56 Dose 10 ml IJ .STK-MED ONE Lab/Rad Data: Laboratory Result Diagrams 03/11/24 18:45 03/11/24 18:45 Laboratory Results 03/11/24 03/11/24 03/11/24 Range/Units 19:00 18:54 18:45 WBC (4.23-9.07) x10^3/uL RBC (4.63-6.08) x10^6/uL Hgb (13.7-17.5) g/dL Hct (40.1-51.0) % MCV (79.0-92.2) fL MCH (25.7-32.2) pg MCHC (32.3-36.5) g/dL RDW (11.6-14.4) % Plt Count (163-337) x10^3/uL MPV (9.4-12.4) fL Gran % (34.0-67.9) % Immature Gran % (Auto) (0.001-0.429) % Nucleat RBC Rel Count (0.00-0.2) % Eos # (Auto) (0.04-0.54) x10^3/uL Immature Gran # (Auto) (0.001-0.031) x10^3u/L Absolute Lymphs (auto) (1.32-3.57) x10^3/uL Absolute Monos (auto) (0.30-0.82) x10^3/uL Absolute Nucleated RBC (0.00-0.012) x10^3u/L Lymphocytes % (21.8-53.1) % Monocytes % (5.3-12.2) % Eosinophils % (0.8-7.0) % Basophils % (0.2-1.2) % Absolute Granulocytes (1.78-5.38) x10^3/uL Basophils # (0.01-0.08) x10^3/uL D-Dimer (0.0-0.50) mg/L Puncture Site LEFT RADIAL pCO2 32 L (35-45) mmHg pO2 59 L (75-100) mmHg Base Excess 1.6 (-2.0-2.0) O2 Saturation 91.4 L (94-100) g/dF ABG pH 7.49 H (7.35-7.45) ABG HCO3 24.4 (22-28) ABG O2 Sat (Measured) 93.8 L (95-100) % Santo Test Yes A-a Gradient 186 a/A Ratio 0.24 Hemoglobin 13.3 Carboxyhemoglobin 1.6 (0.0-6.9) % THgb Methemoglobin 0.9 L (1.4-1.5) % Temperature 37.0 C POC O2 Flow Rate 40 % Sodium (135-145) mmol/L Potassium 4.5 (3.5-5.1) mmol/L Chloride (98-107) mmol/L Carbon Dioxide (22-30) mmol/L Anion Gap (5-15) MEQ/L BUN (9-20) mg/dL Creatinine (0.66-1.25) mg/dL Estimated GFR ML/MIN Glucose (74-106) mg/dL Lactic Acid 1.5 (0.4-2.0) Calcium (8.4-10.2) mg/dL Total Bilirubin (0.2-1.3) mg/dL AST (17-59) U/L ALT (0-50) U/L Alkaline Phosphatase (38-126) U/L Troponin I (0.000-0.033) ng/mL NT-Pro-B Natriuret Pep 1150 (<300) pg/mL Serum Total Protein (6.3-8.2) g/dL Albumin (3.5-5.0) g/dL 03/11/24 03/11/24 03/11/24 Range/Units 18:45 18:45 18:45 WBC (4.23-9.07) x10^3/uL RBC (4.63-6.08) x10^6/uL Hgb (13.7-17.5) g/dL Hct (40.1-51.0) % MCV (79.0-92.2) fL MCH (25.7-32.2) pg MCHC (32.3-36.5) g/dL RDW (11.6-14.4) % Plt Count (163-337) x10^3/uL MPV (9.4-12.4) fL Gran % (34.0-67.9) % Immature Gran % (Auto) (0.001-0.429) % Nucleat RBC Rel Count (0.00-0.2) % Eos # (Auto) (0.04-0.54) x10^3/uL Immature Gran # (Auto) (0.001-0.031) x10^3u/L Absolute Lymphs (auto) (1.32-3.57) x10^3/uL Absolute Monos (auto) (0.30-0.82) x10^3/uL Absolute Nucleated RBC (0.00-0.012) x10^3u/L Lymphocytes % (21.8-53.1) % Monocytes % (5.3-12.2) % Eosinophils % (0.8-7.0) % Basophils % (0.2-1.2) % Absolute Granulocytes (1.78-5.38) x10^3/uL Basophils # (0.01-0.08) x10^3/uL D-Dimer 0.45 (0.0-0.50) mg/L Puncture Site pCO2 (35-45) mmHg pO2 (75-100) mmHg Base Excess (-2.0-2.0) O2 Saturation (94-100) g/dF ABG pH (7.35-7.45) ABG HCO3 (22-28) ABG O2 Sat (Measured) (95-100) % Santo Test A-a Gradient a/A Ratio Hemoglobin Carboxyhemoglobin (0.0-6.9) % THgb Methemoglobin (1.4-1.5) % Temperature C POC O2 Flow Rate % Sodium 139 (135-145) mmol/L Potassium 4.9 (3.5-5.1) mmol/L Chloride 103 (98-107) mmol/L Carbon Dioxide 24 (22-30) mmol/L Anion Gap 16.4 H (5-15) MEQ/L BUN 26 H (9-20) mg/dL Creatinine 0.88 (0.66-1.25) mg/dL Estimated GFR 93.1 ML/MIN Glucose 131 H (74-106) mg/dL Lactic Acid (0.4-2.0) Calcium 9.6 (8.4-10.2) mg/dL Total Bilirubin 1.40 H (0.2-1.3) mg/dL AST 38 (17-59) U/L ALT 37 (0-50) U/L Alkaline Phosphatase 292 H (38-126) U/L Troponin I < 0.012 (0.000-0.033) ng/mL NT-Pro-B Natriuret Pep (<300) pg/mL Serum Total Protein 7.2 (6.3-8.2) g/dL Albumin 4.5 (3.5-5.0) g/dL 08/28/24 Range/Units 18:45 WBC 12.1 H (4.23-9.07) x10^3/uL RBC 5.08 (4.63-6.08) x10^6/uL Hgb 12.8 L (13.7-17.5) g/dL Hct 41.7 (40.1-51.0) % MCV 82.1 (79.0-92.2) fL MCH 25.2 L (25.7-32.2) pg MCHC 30.7 L (32.3-36.5) g/dL RDW 17.3 H (11.6-14.4) % Plt Count 329 (163-337) x10^3/uL MPV 10.7 (9.4-12.4) fL Gran % 81.2 H (34.0-67.9) % Immature Gran % (Auto) 0.5 H (0.001-0.429) % Nucleat RBC Rel Count 0.0 (0.00-0.2) % Eos # (Auto) 0.19 (0.04-0.54) x10^3/uL Immature Gran # (Auto) 0.06 H (0.001-0.031) x10^3u/L Absolute Lymphs (auto) 0.76 L (1.32-3.57) x10^3/uL Absolute Monos (auto) 1.21 H (0.30-0.82) x10^3/uL Absolute Nucleated RBC 0.00 (0.00-0.012) x10^3u/L Lymphocytes % 6.3 L (21.8-53.1) % Monocytes % 10.0 (5.3-12.2) % Eosinophils % 1.6 (0.8-7.0) % Basophils % 0.4 (0.2-1.2) % Absolute Granulocytes 9.85 H (1.78-5.38) x10^3/uL Basophils # 0.05 (0.01-0.08) x10^3/uL D-Dimer (0.0-0.50) mg/L Puncture Site pCO2 (35-45) mmHg pO2 (75-100) mmHg Base Excess (-2.0-2.0) O2 Saturation (94-100) g/dF ABG pH (7.35-7.45) ABG HCO3 (22-28) ABG O2 Sat (Measured) (95-100) % Santo Test A-a Gradient a/A Ratio Hemoglobin Carboxyhemoglobin (0.0-6.9) % THgb Methemoglobin (1.4-1.5) % Temperature C POC O2 Flow Rate % Sodium (135-145) mmol/L Potassium (3.5-5.1) mmol/L Chloride (98-107) mmol/L Carbon Dioxide (22-30) mmol/L Anion Gap (5-15) MEQ/L BUN (9-20) mg/dL Creatinine (0.66-1.25) mg/dL Estimated GFR ML/MIN Glucose (74-106) mg/dL Lactic Acid (0.4-2.0) Calcium (8.4-10.2) mg/dL Total Bilirubin (0.2-1.3) mg/dL AST (17-59) U/L ALT (0-50) U/L Alkaline Phosphatase (38-126) U/L Troponin I (0.000-0.033) ng/mL NT-Pro-B Natriuret Pep (<300) pg/mL Serum Total Protein (6.3-8.2) g/dL Albumin (3.5-5.0) g/dL - Progress Progress: improved Counseled pt/family regarding: lab results, diagnosis, need for follow-up, rad results <ALVARO ROSS - Last Filed: 03/11/24 18:43> <SARY HUMMEL - Last Filed: 03/11/24 20:53> - Progress Progress Note: 03/11/24 18:46 Differential diagnosis includes PE, STEMI, other ST changes, pneumonia, COVID, influenza, other viral illness, acute heart failure Plan for basic labs, COVID, RSV swabs, chest x-ray, breathing treatment, steroids. We will hold off on fluids at this point in time until we check a CHF peptide and look at the chest x-ray for volume status. Transfer of care to Dr. Hummel at 7 PM. He will follow-up on all labs and images. Likely admission to hospital based on initial presentation. (ALVARO ROSS) 68-year-old male presents to our ED for evaluation of shortness of breath. Upon arrival patient was hypoxic. D-dimer negative. Troponin negative. 1150. Patient took 20 of Lasix this morning and 10 this evening as part of his home medication regimen. Chest x-ray reveals bilateral pneumonia. Antibiotics initiated. Patient will require hospitalization for further evaluation and treatment. Patient agrees to hospitalization for further evaluation and desiree tment. Patient accepted by at 8:43 PM. Complexity problem addressed is moderate acute complicated. No critical care time. Complex of data reviewed and analyzed is extensive. Test ordered chest reviewed results analyzed and correlated clinically with history and physical exam. Risk of complication and or risk of morbidity/mortality patient management is high. Vital stable time spent admit patient approximately 20 minutes. Plan of care established for shared decision making. No social determinants of health present impede follow-up. Portions of this note were created with voice recognition technology. There may be grammatical, spelling, punctuation or sound alike errors 03/11/24 20:47 (SARY HUMMEL) - Departure Critical Care Time: No <ALVARO ROSS - Last Filed: 03/11/24 18:43> - Departure Departure Disposition: Observation <SARY HUMMEL - Last Filed: 03/11/24 20:53> - Departure Clinical Impression: Wheezing, Shortness of breath, Hypoxia, Bilateral pneumonia Condition: Stable Referrals: CHYNA HUNT DO [Primary Care Provider] - Follow up/PCP as directed
[2024-03-11] MEDS ORDERED: Zithromax 500 MG/ 250 ML NaCl Premix 500 MG/250 ML IVPB IV ONE (18:55)
[2024-03-11] MEDS ORDERED: Sterile H2O 10 ml IJ ONE (18:55)
[2024-03-11] MEDS ORDERED: solu-MEDROL ONE (18:55)
[2024-03-11] MEDS: solu-MEDROL 125 MG, Sterile H2O 10 ml 2 ML IV ONE (18:56)
[2024-03-11] MEDS: Zithromax 500 MG/ 250 ML NaCl Premix 500 MG/250 ML IVPB IV STA (18:56)
[2024-03-11 19:05] LABS: A-aADO2 186; ABG HEMOGLOBIN 13.3; ABG POTASSIUM 4.5 (3.5-5.1); ARTERIAL BLD GAS O2 SATURATION 93.8 % (95-100); ARTERIAL BLOOD GAS BASE EXCESS 1.6 (-2.0-2.0); ARTERIAL BLOOD GAS FIO2 40 %; ARTERIAL BLOOD GAS PCO2 32 mmHg (35-45); ARTERIAL BLOOD GAS PO2 59 mmHg (75-100); ARTERIAL BLOOD GAS pH 7.49 (7.35-7.45); CARBOXYHEMOGLOBIN 1.6 % THgb (0.0-6.9); HCO3- 24.4 (22-28); HGB O2 SAT 91.4 g/dF (94-100); Methhemoglobin 0.9 % (1.4-1.5); paO2 pAO1 0.24
[2024-03-11 19:06] LABS: Absolute Neutrophil Ct (ANC) 9.85 x10^3/uL (1.78-5.38); BASOPHIL % 0.4 % (0.2-1.2); Basophil (Absolute #) 0.05 x10^3/uL (0.01-0.08); Eosinophil % 1.6 % (0.8-7.0); Eosinophil (Absolute #) 0.19 x10^3/uL (0.04-0.54); Hematocrit 41.7 % (40.1-51.0); Hemoglobin 12.8 g/dL (13.7-17.5); IMMATURE GRAN # 0.06 x10^3u/L (0.001-0.031); IMMATURE GRAN % 0.5 % (0.001-0.429); Lymphocyte (Absolute #) 0.76 x10^3/uL (1.32-3.57); Lymphocytes % 6.3 % (21.8-53.1); Mean Cell Volume 82.1 fL (79.0-92.2); Mean Corpuscular Hemoglobin 25.2 pg (25.7-32.2); Mean Corpuscular Hgb Concent. 30.7 g/dL (32.3-36.5); Mean Platelet Volume 10.7 fL (9.4-12.4); Monocyte (Absolute #) 1.21 x10^3/uL (0.30-0.82); Neutrophil % 81.2 % (34.0-67.9); Platelet Count 329 x10^3/uL (163-337); Red Blood Count 5.08 x10^6/uL (4.63-6.08); Red Cell Distribution Width 17.3 % (11.6-14.4); White Blood Count 12.1 x10^3/uL (4.23-9.07)
[2024-03-11 19:06] LABS: ABG SITE LEFT RADIAL; ALLEN TEST OK? Yes
[2024-03-11 20:03] LABS: ALBUMIN 4.5 g/dL (3.5-5.0); ANION GAP 16.4 MEQ/L (5-15); BILIRUBIN,TOTAL 1.4 mg/dL (0.2-1.3); Calcium 9.6 mg/dL (8.4-10.2); Creatinine 1 0.88 mg/dL (0.66-1.25); EST GLOMERULAR FILTRATION RATE 93.1 ML/MIN; Potassium 4.9 mmol/L (3.5-5.1); Total Protein 7.2 g/dL (6.3-8.2)
[2024-03-11] MEDS ORDERED: ROCEPHIN 2 GM/100 ML NACL 2 GM/100 ML IVPB IV ONE (20:40)
[2024-03-11] MEDS: ROCEPHIN 2 GM/100 ML NACL 2 GM/100 ML IVPB IV ONE (20:42)
[2024-03-11 21:00] LABS: INFLUENZA A NEGATIVE (NEGATIVE); INFLUENZA B NEGATIVE (NEGATIVE); RESPIRATORY SYNCTIAL VIRUS NEGATIVE (NEGATIVE); SARS-CoV-2 Xpert Express NEGATIVE (NEGATIVE)
[2024-03-11] MEDS ORDERED: TYLENOL 325 MG PO PRN (22:27)
[2024-03-11] MEDS ORDERED: HUMALOG SQ PRN (22:27)
[2024-03-11] MEDS ORDERED: Zofran 4 MG/2 ML VIAL IV PRN (22:27)
[2024-03-11] MEDS: Lasix 40 MG/4 ML IV SCH (22:59)
--- NOTE | 2024-03-11 23:05 | PCM.HP ---
History of Present Illness - Chief Complaint Chief Complaint: Bilateral pneumonia, hypoxia Date: 03/11/24 History of Present Illness: is a 68 year old male with a history of CHF (about to establish care with Dr. Kilgore; he had a recent ECHO), DM, HTN, and pulmonary hypertension (follows with Dr. Osborn) who now presents to the hospital with worsening shortness of breath for the past few days. Upon arrival to the ED, he had a saturation of 86% on room air with increased work of breathing. He denied chest pain. Patient has had lower extremity edema which has been weeping and bilateral pretibial skin wounds (present on admission). In the ED, he was noted to have a bilateral pneumonia and was placed on antibiotics. - Review of Systems Constitutional: No Symptoms Eyes: No Symptoms Ears, Nose, & Throat: No Symptoms Respiratory: Cough, Short Of Breath Cardiac: Edema Abdominal/Gastrointestinal: No Symptoms Genitourinary Symptoms: No Symptoms Musculoskeletal: No Symptoms Skin: No Symptoms Neurological: No Symptoms Psychological: No Symptoms Endocrine: No Symptoms Hematologic/Lymphatic: No Symptoms Immunological/Allergic: No Symptoms All Other Systems: Reviewed and Negative Medications & Allergies Home Medications: Home Medication List Simvastatin 20Mg [Zocor 20Mg] 40 mg PO QHS 11/21/11 [History Confirmed 03/11/24] Amlodipine Besylate 5 mg [Norvasc 5 mg] 10 mg PO DAILY 06/06/18 [History Confirmed 03/11/24] Carvedilol 12.5 mg [Coreg 12.5 mg] 12.5 mg PO BID 06/06/18 [History Confirmed 03/11/24] Metformin HCl 1,000 mg PO BID 06/06/18 [History Confirmed 03/11/24] Aspirin 81 gm Chew [Baby Aspirin 81 mg Chew] 81 mg PO DAILY 04/24/20 [History Confirmed 03/11/24] Insulin Aspart [Novolog] 1 units SQ UD 04/24/20 [History Confirmed 03/11/24] Gabapentin [Neurontin ] 300 mg PO TID 03/11/24 [History Confirmed 03/11/24] Primidone 50 MG [Mysoline 50Mg] 50 mg PO TID 03/11/24 [History Confirmed 03/11/24] lisinopriL [Zestril] 30 mg PO DAILY 03/11/24 [History Confirmed 03/11/24] Allergies/Adverse Reactions: Allergies Allergy/AdvReac Type Severity Reaction Status Date / Time bacitracin [From Neosporin] Allergy Mild Blisters Verified 03/11/24 18:26 bacitracin zinc Allergy Mild Blisters Verified 03/11/24 18:26 [From Neosporin] benzalkonium chloride Allergy Mild Blisters Verified 03/11/24 18:26 [From Neosporin] gramicidin D [From Neosporin] Allergy Mild Blisters Verified 03/11/24 18:26 hydrocortisone Allergy Mild Blisters Verified 03/11/24 18:26 [From Neosporin] neomycin sulfate Allergy Mild Blisters Verified 03/11/24 18:26 [From Neosporin] polymyxin B [From Neosporin] Allergy Mild Blisters Verified 03/11/24 18:26 polymyxin B sulfate Allergy Mild Blisters Verified 03/11/24 18:26 [From Neosporin] adhesive tape Allergy Verified 03/11/24 18:26 liraglutide [From Victoza] Allergy Verified 03/11/24 18:26 morphine AdvReac Intermediate Verified 03/11/24 18:26 - Past Medical History Past Medical History: Yes Neurological History: No Pertinent History, Peripheral Neuropathy ENT History: No Pertinent History Cardiac History: Congestive Heart Failure, Coronary Artery Disease, High Cholesterol, Hypertension, Other Respiratory History: No Pertinent History Endocrine Medical History: Diabetes Type II Musculoskelatal History: Osteoarthritis GI Medical History: No Pertinent History History: No Pertinent History Pyscho-Social History: No Pertinent History Male Reproductive Disorders: No Pertinent History Comment: Pulmonary HTN, recent Echo shows left ventricular issue and patient is scheduled to see hadoop consultant, Dr. Kilgore for the first time on 03/18/24. on allergy shots for chronic hay fever - Past Surgical History Past Surgical History: Yes Neuro Surgical History: No Pertinent History Cardiac History: Cardiac Catheterization Respiratory Surgery: No Pertinent History GI Surgical History: Cholecystectomy Genitourinary Surgical Hx: No Pertinent History Musculskeletal Surgical Hx: Orthopedic Surgery Male Surgical History: No Pertinent History Other Surgical History: bilateral legs - Social History Smoking Status: Never smoker Exposure to second hand smoke: No Alcohol: None Drug Use: none - Social Determinants of Health Will the patient participate in the screening: Yes Do you worry about a steady place to live?: No Do you have any problems with any of the following?: No known problems In the past 12 months,have you had to go without utilities?: No Have you or anyone in your house had to go without enough: No Transportation Issues: No Has anyone in your support network made you feel unsafe?: No Does the patient want assistance with any of the above?: No - Physical Exam Vital Signs: Vital Signs - 24 hr Temp Pulse Resp BP BP Pulse Ox 03/11/24 21:30 97.8 F 80 26 H 144/65 93 L 03/11/24 21:22 95 03/11/24 20:00 83 24 157/115 93 L 03/11/24 19:30 83 25 H 156/81 92 L 03/11/24 19:08 80 33 H 151/72 96 03/11/24 19:00 83 30 H 96 03/11/24 18:47 86 L 03/11/24 18:39 86 24 94 L 03/11/24 18:27 99.5 F 89 34 H 137/70 86 L General Appearance: no apparent distress, alert Neurologic Exam: alert, oriented x 3, cooperative, bull float finisher II-XII nml as tested, normal mood/affect, nml cerebellar function Eye Exam: PERRL/EOMI, eyes nml inspection Ears, Nose, Throat Exam: normal ENT inspection Neck Exam: normal inspection, non-tender, supple, full range of motion Respiratory Exam: diminished breath sounds, rhonchi Cardiovascular Exam: regular rate/rhythm, normal heart sounds, edema (bilateral leg edema with anasarca.) Gastrointestinal/Abdomen Exam: soft, normal bowel sounds, distention Back Exam: normal range of motion Extremity Exam: normal inspection, normal range of motion Skin Exam: normal color, other (bilateral pretibial skin wounds noted.) Wound Assessment: Skin/Wound Assessment Wound/Incision Assessment Start: 03/11/24 21:47 Text: Status: Active Freq: Q6H Protocol: Document 03/11/24 22:00 AR (Rec: 03/11/24 22:43 AR [id number]) Wound/Incision Assessment Bilat lower legs Wound Assessment Admission Wound Type edematous Wound Stage Non Pressure Wound Dressing Status Changed Drainage Amount Minimal Drainage Description Serosanguineous General Appearance Clean/Dry,Reddened Surrounding Tissue [place],Edematous-pitting,Weeping Primary Dressing Gauze Pads Secondary Dressing coban Comment BLE are edematous and weeping in some areas, there is a small water blister on left outer part of the lower leg. Left leg is reddened and scaly . Right leg is wrapped with gauze and coban for weeping sites. Bilat feet are edematous as well. Patient denies pain to these areas at this time. Wound Photo Photo Taken Yes Date: 03/11/24 Time: 22:00 Results - Labs Lab/Micro Results: Lab Results-Last 24 Hours 03/11/24 03/11/24 03/11/24 Range/Units 18:45 18:45 18:45 WBC 12.1 H (4.23-9.07) x10^3/uL RBC 5.08 (4.63-6.08) x10^6/uL Hgb 12.8 L (13.7-17.5) g/dL Hct 41.7 (40.1-51.0) % MCV 82.1 (79.0-92.2) fL MCH 25.2 L (25.7-32.2) pg MCHC 30.7 L (32.3-36.5) g/dL RDW 17.3 H (11.6-14.4) % Plt Count 329 (163-337) x10^3/uL MPV 10.7 (9.4-12.4) fL Gran % 81.2 H (34.0-67.9) % Immature Gran % (Auto) 0.5 H (0.001-0.429) % Nucleat RBC Rel Count 0.0 (0.00-0.2) % Eos # (Auto) 0.19 (0.04-0.54) x10^3/uL Immature Gran # (Auto) 0.06 H (0.001-0.031) x10^3u/L Absolute Lymphs (auto) 0.76 L (1.32-3.57) x10^3/uL Absolute Monos (auto) 1.21 H (0.30-0.82) x10^3/uL Absolute Nucleated RBC 0.00 (0.00-0.012) x10^3u/L Lymphocytes % 6.3 L (21.8-53.1) % Monocytes % 10.0 (5.3-12.2) % Eosinophils % 1.6 (0.8-7.0) % Basophils % 0.4 (0.2-1.2) % Absolute Granulocytes 9.85 H (1.78-5.38) x10^3/uL Basophils # 0.05 (0.01-0.08) x10^3/uL D-Dimer 0.45 (0.0-0.50) mg/L Puncture Site pCO2 (35-45) mmHg pO2 (75-100) mmHg Base Excess (-2.0-2.0) O2 Saturation (94-100) g/dF ABG pH (7.35-7.45) ABG HCO3 (22-28) ABG O2 Sat (Measured) (95-100) % Santo Test A-a Gradient a/A Ratio Hemoglobin Carboxyhemoglobin (0.0-6.9) % THgb Methemoglobin (1.4-1.5) % Temperature C POC O2 Flow Rate % Sodium 139 (135-145) mmol/L Potassium 4.9 (3.5-5.1) mmol/L Chloride 103 (98-107) mmol/L Carbon Dioxide 24 (22-30) mmol/L Anion Gap 16.4 H (5-15) MEQ/L BUN 26 H (9-20) mg/dL Creatinine 0.88 (0.66-1.25) mg/dL Estimated GFR 93.1 ML/MIN Glucose 131 H (74-106) mg/dL Lactic Acid (0.4-2.0) Calcium 9.6 (8.4-10.2) mg/dL Total Bilirubin 1.40 H (0.2-1.3) mg/dL AST 38 (17-59) U/L ALT 37 (0-50) U/L Alkaline Phosphatase 292 H (38-126) U/L Troponin I (0.000-0.033) ng/mL NT-Pro-B Natriuret Pep (<300) pg/mL Serum Total Protein 7.2 (6.3-8.2) g/dL Albumin 4.5 (3.5-5.0) g/dL Influenza Type A Ag (NEGATIVE) Influenza Type B Ag (NEGATIVE) RSV (PCR) (NEGATIVE) SARS-CoV-2 (PCR) (NEGATIVE) 03/11/24 03/11/24 03/11/24 Range/Units 18:45 18:45 18:54 WBC (4.23-9.07) x10^3/uL RBC (4.63-6.08) x10^6/uL Hgb (13.7-17.5) g/dL Hct (40.1-51.0) % MCV (79.0-92.2) fL MCH (25.7-32.2) pg MCHC (32.3-36.5) g/dL RDW (11.6-14.4) % Plt Count (163-337) x10^3/uL MPV (9.4-12.4) fL Gran % (34.0-67.9) % Immature Gran % (Auto) (0.001-0.429) % Nucleat RBC Rel Count (0.00-0.2) % Eos # (Auto) (0.04-0.54) x10^3/uL Immature Gran # (Auto) (0.001-0.031) x10^3u/L Absolute Lymphs (auto) (1.32-3.57) x10^3/uL Absolute Monos (auto) (0.30-0.82) x10^3/uL Absolute Nucleated RBC (0.00-0.012) x10^3u/L Lymphocytes % (21.8-53.1) % Monocytes % (5.3-12.2) % Eosinophils % (0.8-7.0) % Basophils % (0.2-1.2) % Absolute Granulocytes (1.78-5.38) x10^3/uL Basophils # (0.01-0.08) x10^3/uL D-Dimer (0.0-0.50) mg/L Puncture Site LEFT RADIAL pCO2 32 L (35-45) mmHg pO2 59 L (75-100) mmHg Base Excess 1.6 (-2.0-2.0) O2 Saturation 91.4 L (94-100) g/dF ABG pH 7.49 H (7.35-7.45) ABG HCO3 24.4 (22-28) ABG O2 Sat (Measured) 93.8 L (95-100) % Santo Test Yes A-a Gradient 186 a/A Ratio 0.24 Hemoglobin 13.3 Carboxyhemoglobin 1.6 (0.0-6.9) % THgb Methemoglobin 0.9 L (1.4-1.5) % Temperature 37.0 C POC O2 Flow Rate 40 % Sodium (135-145) mmol/L Potassium 4.5 (3.5-5.1) mmol/L Chloride (98-107) mmol/L Carbon Dioxide (22-30) mmol/L Anion Gap (5-15) MEQ/L BUN (9-20) mg/dL Creatinine (0.66-1.25) mg/dL Estimated GFR ML/MIN Glucose (74-106) mg/dL Lactic Acid (0.4-2.0) Calcium (8.4-10.2) mg/dL Total Bilirubin (0.2-1.3) mg/dL AST (17-59) U/L ALT (0-50) U/L Alkaline Phosphatase (38-126) U/L Troponin I < 0.012 (0.000-0.033) ng/mL NT-Pro-B Natriuret Pep 1150 (<300) pg/mL Serum Total Protein (6.3-8.2) g/dL Albumin (3.5-5.0) g/dL Influenza Type A Ag (NEGATIVE) Influenza Type B Ag (NEGATIVE) RSV (PCR) (NEGATIVE) SARS-CoV-2 (PCR) (NEGATIVE) 03/11/24 03/11/24 Range/Units 19:00 19:00 WBC (4.23-9.07) x10^3/uL RBC (4.63-6.08) x10^6/uL Hgb (13.7-17.5) g/dL Hct (40.1-51.0) % MCV (79.0-92.2) fL MCH (25.7-32.2) pg MCHC (32.3-36.5) g/dL RDW (11.6-14.4) % Plt Count (163-337) x10^3/uL MPV (9.4-12.4) fL Gran % (34.0-67.9) % Immature Gran % (Auto) (0.001-0.429) % Nucleat RBC Rel Count (0.00-0.2) % Eos # (Auto) (0.04-0.54) x10^3/uL Immature Gran # (Auto) (0.001-0.031) x10^3u/L Absolute Lymphs (auto) (1.32-3.57) x10^3/uL Absolute Monos (auto) (0.30-0.82) x10^3/uL Absolute Nucleated RBC (0.00-0.012) x10^3u/L Lymphocytes % (21.8-53.1) % Monocytes % (5.3-12.2) % Eosinophils % (0.8-7.0) % Basophils % (0.2-1.2) % Absolute Granulocytes (1.78-5.38) x10^3/uL Basophils # (0.01-0.08) x10^3/uL D-Dimer (0.0-0.50) mg/L Puncture Site pCO2 (35-45) mmHg pO2 (75-100) mmHg Base Excess (-2.0-2.0) O2 Saturation (94-100) g/dF ABG pH (7.35-7.45) ABG HCO3 (22-28) ABG O2 Sat (Measured) (95-100) % Santo Test A-a Gradient a/A Ratio Hemoglobin Carboxyhemoglobin (0.0-6.9) % THgb Methemoglobin (1.4-1.5) % Temperature C POC O2 Flow Rate % Sodium (135-145) mmol/L Potassium (3.5-5.1) mmol/L Chloride (98-107) mmol/L Carbon Dioxide (22-30) mmol/L Anion Gap (5-15) MEQ/L BUN (9-20) mg/dL Creatinine (0.66-1.25) mg/dL Estimated GFR ML/MIN Glucose (74-106) mg/dL Lactic Acid 1.5 (0.4-2.0) Calcium (8.4-10.2) mg/dL Total Bilirubin (0.2-1.3) mg/dL AST (17-59) U/L ALT (0-50) U/L Alkaline Phosphatase (38-126) U/L Troponin I (0.000-0.033) ng/mL NT-Pro-B Natriuret Pep (<300) pg/mL Serum Total Protein (6.3-8.2) g/dL Albumin (3.5-5.0) g/dL Influenza Type A Ag NEGATIVE (NEGATIVE) Influenza Type B Ag NEGATIVE (NEGATIVE) RSV (PCR) NEGATIVE (NEGATIVE) SARS-CoV-2 (PCR) NEGATIVE (NEGATIVE) Accuchecks Date 03/11/24 Time 22:47 - Radiology Impressions Radiology Exams & Impressions: Radiology Procedures Category Date Time Status CHEST 1 VIEW (PORTABLE) Stat Exams 03/11/24 18:37 Taken KUB Stat Exams 03/11/24 22:53 Ordered - Other Procedures and Tests Respiratory Therapy 03/11/24 22:36 Incentive Spirometry UD Assessment/Plan (1) Bilateral pneumonia Current Visit: Yes Status: Acute Assessment & Plan: IV antibiotics. Leukocytosis noted. Follow clinical course. Code(s): J18.9 - PNEUMONIA, UNSPECIFIED ORGANISM (2) Acute exacerbation of CHF (congestive heart failure) Current Visit: Yes Status: Acute Assessment & Plan: Patient is to establish care with Dr. Kilgore and had a recent ECHO. Will need to obtain the ECHO records. IV Lasix for now and monitor volume status. 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 Monitor sugars on ISS. Code(s): E11.9 - TYPE 2 DIABETES MELLITUS WITHOUT COMPLICATIONS (4) Shortness of breath Current Visit: Yes Status: Acute Assessment & Plan: Nebs prn. Treatment as above. Code(s): R06.02 - SHORTNESS OF BREATH (5) Hypoxia Current Visit: Yes Status: Acute Assessment & Plan: Wean O2 as tolerated. PT eval. Code(s): R09.02 - HYPOXEMIA (6) Abdominal distension Current Visit: Yes Status: Acute Assessment & Plan: Had a BM today. Soft. +Bowel sounds. Check KUB. Suspect distension is due to anasarca/fluid overload. Code(s): R14.0 - ABDOMINAL DISTENSION (GASEOUS) Telemedicine Encounter - Telemedicine Encounter Telemedicine Encounter: "The entirety of this encounter was performed via Telemedicine" This visit was performed using real-time audio and video connection between my location and thepatients locationwith the assistance of a surrogateat the patients location. Written or verbal consent was obtained from the patient/guardian to perform this visit [facility] technology. Any patient questions regarding the telemedicine interaction were answered.
[2024-03-12] MEDS: DUONEB 0.5-3 MG/3 ml Neb IH SCH (00:51)
--- NOTE | 2024-03-12 00:56 | XRAY ---
CLINICAL HISTORY: abdominal distension COMPARISON: No prior studies are available for comparison. TECHNIQUE: X-ray images of the abdomen were obtained in supine and upright positions. FINDINGS: Gas Pattern: The gas pattern within the abdomen is normal. No evidence of bowel obstruction or distention. Soft Tissues: A faint tiny right renal area radiopaque shadow. Soft tissues of the abdomen appear normal without evidence of masses. The liver, spleen, and kidneys are of normal size and position. Cholecystectomy staple shadows at right hypochondrium. Bones: Osteoarthritic changes at both hip joints. Degenerative changes at generalized lumbar spines. IMPRESSION: 1. Excessive bowel gases in the abdomen. 2. A faint tiny right renal area radiopaque shadow. Ultrasound/CT kidneys are suggested if clinically indicated. 3. No significant dilatation of bowel loops. Electronically Signed by: Jimmie Parnell MD. (03/12/2024 00:52:45 EDT)
[2024-03-12 05:01] LABS: BASOPHIL % 0.1 % (0.2-1.2); Basophil (Absolute #) 0.01 x10^3/uL (0.01-0.08); Eosinophil % 0.1 % (0.8-7.0); Eosinophil (Absolute #) 0.01 x10^3/uL (0.04-0.54); Hematocrit 38.3 % (40.1-51.0); Hemoglobin 12.1 g/dL (13.7-17.5); IMMATURE GRAN # 0.04 x10^3u/L (0.001-0.031); IMMATURE GRAN % 0.4 % (0.001-0.429); Lymphocyte (Absolute #) 0.46 x10^3/uL (1.32-3.57); Lymphocytes % 5.1 % (21.8-53.1); Mean Cell Volume 80.1 fL (79.0-92.2); Mean Corpuscular Hemoglobin 25.3 pg (25.7-32.2); Mean Corpuscular Hgb Concent. 31.6 g/dL (32.3-36.5); Mean Platelet Volume 10.5 fL (9.4-12.4); Monocyte (Absolute #) 0.28 x10^3/uL (0.30-0.82); Monocytes % 3.1 % (5.3-12.2); Neutrophil % 91.2 % (34.0-67.9); Platelet Count 280 x10^3/uL (163-337); Red Blood Count 4.78 x10^6/uL (4.63-6.08); Red Cell Distribution Width 17.4 % (11.6-14.4); White Blood Count 9.1 x10^3/uL (4.23-9.07)
[2024-03-12 05:35] LABS: ANION GAP 14.8 MEQ/L (5-15); Calcium 8.9 mg/dL (8.4-10.2); Creatinine 1 0.83 mg/dL (0.66-1.25); EST GLOMERULAR FILTRATION RATE 94.7 ML/MIN
[2024-03-12 08:17] LABS: Slide Review 1 YES
[2024-03-12] MEDS: Glucophage 500 MG PO SCH (08:18)
--- NOTE | 2024-03-12 08:43 | XRAY ---
Indication: Pneumonia. Comparison: February 18, 2020 Portable chest demonstrates new diffuse airspace disease, right lung greater than left with right base consolidation. Heart not enlarged. Bony thorax intact again with degenerative changes.
[2024-03-12] MEDS: Mylicon 80MG PO PRN (09:48)
[2024-03-12] MEDS ORDERED: METFORMIN HCL 1000 MG PO SCH (10:00)
[2024-03-12] MEDS ORDERED: BABY ASPIRIN 81 MG CHEW PO SCH (10:00)
[2024-03-12] MEDS ORDERED: NON-FORMULARY ITEM (Lisinopril [Zestril] 30 MG Tablet) PO SCH (10:00)
[2024-03-12] MEDS ORDERED: PATIENT OWN MEDICATION SQ PRN (10:45)
[2024-03-12] MEDS: COREG 12.5 MG PO SCH (10:55)
[2024-03-12] MEDS: Acidophilus TABLET PO SCH (10:55)
[2024-03-12] MEDS: NORVASC 5 MG PO SCH (10:55)
[2024-03-12] MEDS: Zestril 10 MG PO SCH (10:55)
[2024-03-12] MEDS: NEURONTIN PO SCH (10:55)
[2024-03-12] MEDS: MYSOLINE 50MG PO SCH (10:56)
[2024-03-12] MEDS: ECOTRIN 81 MG PO SCH (10:56)
[2024-03-12] MEDS: Mucinex 600MG ER Tabs PO SCH (10:56)
[2024-03-12] MEDS: ENOXAPARIN SODIUM SQ SCH (10:56)
--- NOTE | 2024-03-12 11:01 | XRAY ---
Indication: Abdomen distention. Abnormal KUB. Two-dimensional renal sonogram performed. Comparison: None Both kidneys normal in reniform shape with normal color perfusion. Right kidney measures 11.8 x 5.5 x 7.3 cm and left measures 12.0 x 6.5 x 6.0 cm. Left upper kidney demonstrates 4.0 cm exophytic cyst. No other focal solid/cystic renal mass or hydronephrosis. Corticomedullary differentiation preserved. Normally distended urinary bladder is grossly unremarkable. Normal right ureteral jet. Left ureteral jet not seen within the allotted exam time. Prevoid bladder volume is 429 cc. Postvoid demonstrates complete emptying. Impression: Left renal benign cyst. Remaining renal sonogram is negative.
--- NOTE | 2024-03-12 12:50 | PCM.NOTE ---
Date and Time: 03/12/24 1238 Subjective Assessment: 03/12/24 is a 68 year old male with a history of CHF (about to establish care with Dr. Kilgore; he had a recent ECHO), DM, HTN, and pulmonary hypertension (follows with Dr. Osborn). He presented to the hospital on 03/11/24 with worsening shortness of breath for the past few days. Upon arrival to the ED, he had a saturation of 86% on room air with increased work of breathing. He denied chest pain. Patient has had lower extremity edema which has been weeping and bilateral pretibial skin wounds (present on admission), and 3+ pitting edema of BLLE. In the ED, he was noted to have a bilateral pneumonia and was placed on antibiotics. EF 70% per most recent echo as records obtained from cardiology. Podiatry consulted for BLLE edema, BLLE wounds/ blisters, and left 3rd toe abrasion. Renal US ordered for abnormal KUB - US shows left renal benign cyst. He is on 4LNC- 98%, baseline RA. He denies Abd pain, N/V/D. - Review of Systems Constitutional: No Fever, No Chills Eyes: No Symptoms Ears, Nose, & Throat: No Symptoms Respiratory: Short Of Breath, No Cough Cardiac: Edema (BLLE), No Chest Pain, No Syncope Abdominal/Gastrointestinal: No Abdominal Pain, No Nausea, No Vomiting, No Diarrhea Genitourinary Symptoms: No Dysuria Musculoskeletal: No Back Pain, No Neck Pain Skin: Skin Lesions, No Rash Neurological: No Dizziness, No Focal Weakness, No Sensory Changes Psychological: No Symptoms Endocrine: No Symptoms Hematologic/Lymphatic: No Symptoms Immunological/Allergic: No Symptoms Objective Exam General Appearance: no apparent distress, alert, obese Neurologic Exam: alert, oriented x 3, cooperative, normal mood/affect, nml cerebellar function, sensation nml, No motor deficits Skin Exam: normal color, warm, dry, other (BLLE redness and edema, Left foot 3rd toe abrasion) Wound Assessment: Skin/Wound Assessment Wound/Incision Assessment Start: 03/11/24 21:47 Text: Status: Active Freq: Q6H Protocol: Document 03/12/24 10:00 RF (Rec: 03/12/24 10:38 RF [id number]) Wound/Incision Assessment Bilat lower legs Wound Assessment Shift Assessment Wound Type edematous Wound Stage Non Pressure Wound Dressing Status Changed Drainage Amount Minimal Drainage Description Serosanguineous General Appearance Clean/Dry,Reddened Surrounding Tissue [place],Edematous-pitting,Weeping Primary Dressing Gauze Pads Secondary Dressing coban Comment BLE are edematous, there is a small water blister on left LATERAL lower leg. Left LOWER leg is reddened and scaly. Right leg is wrapped with 4X4 gauze and coban DUE TO WEEPING . Bilat feet are edematous as well. Patient denies pain to these areas at this time. Wound Photo Photo Taken No Date: 03/11/24 Time: 22:00 Eye Exam: PERRL, EOMI, eyes nml inspection Ears, Nose, Throat Exam: normal ENT inspection, pharynx normal, moist mucous membranes Neck Exam: normal inspection, non-tender, supple, full range of motion Respiratory Exam: normal breath sounds, lungs clear, No respiratory distress Cardiovascular Exam: regular rate/rhythm, normal heart sounds, edema (+3 pitting edema BLLE) Gastrointestinal/Abdomen Exam: soft, distention, No tenderness, No mass Extremity Exam: normal inspection, normal range of motion Back Exam: normal inspection, normal range of motion, No CVA tenderness, No vertebral tenderness Male Genitalia Exam: deferred Rectal Exam: deferred Objective Data Vital Signs: Vital Signs - 24 hr Temp Pulse Resp BP BP Pulse Ox 03/12/24 11:23 97.6 F 80 17 148/69 98 03/12/24 07:49 74 19 99 03/12/24 07:05 97.6 F 81 14 152/71 99 03/12/24 04:00 97.0 F 74 26 H 134/71 98 03/12/24 00:51 74 16 94 L 03/11/24 23:13 75 22 92 L 03/11/24 21:30 97.8 F 80 26 H 144/65 93 L 03/11/24 21:22 95 03/11/24 20:00 83 24 157/115 93 L 03/11/24 19:30 83 25 H 156/81 92 L 03/11/24 19:08 80 33 H 151/72 96 03/11/24 19:00 83 30 H 96 03/11/24 18:47 86 L 03/11/24 18:39 86 24 94 L 03/11/24 18:27 99.5 F 89 34 H 137/70 86 L Pain Assessment - Last Documented Pain Intensity 3 Intake and Output: Intake & Output 03/10/24 03/11/24 03/12/24 03/13/24 11:59 11:59 11:59 11:59 Intake Total 200 Output Total 1300 Balance -1100 Weight 130.7 kg Lab Results: Lab Results-Last 24 Hours 03/11/24 03/11/24 03/11/24 Range/Units 18:45 18:45 18:45 WBC 12.1 H (4.23-9.07) x10^3/uL RBC 5.08 (4.63-6.08) x10^6/uL Hgb 12.8 L (13.7-17.5) g/dL Hct 41.7 (40.1-51.0) % MCV 82.1 (79.0-92.2) fL MCH 25.2 L (25.7-32.2) pg MCHC 30.7 L (32.3-36.5) g/dL RDW 17.3 H (11.6-14.4) % Plt Count 329 (163-337) x10^3/uL MPV 10.7 (9.4-12.4) fL Gran % 81.2 H (34.0-67.9) % Immature Gran % (Auto) 0.5 H (0.001-0.429) % Nucleat RBC Rel Count 0.0 (0.00-0.2) % Eos # (Auto) 0.19 (0.04-0.54) x10^3/uL Immature Gran # (Auto) 0.06 H (0.001-0.031) x10^3u/L Absolute Lymphs (auto) 0.76 L (1.32-3.57) x10^3/uL Absolute Monos (auto) 1.21 H (0.30-0.82) x10^3/uL Absolute Nucleated RBC 0.00 (0.00-0.012) x10^3u/L Lymphocytes % 6.3 L (21.8-53.1) % Monocytes % 10.0 (5.3-12.2) % Eosinophils % 1.6 (0.8-7.0) % Basophils % 0.4 (0.2-1.2) % Absolute Granulocytes 9.85 H (1.78-5.38) x10^3/uL Basophils # 0.05 (0.01-0.08) x10^3/uL D-Dimer 0.45 (0.0-0.50) mg/L Puncture Site pCO2 (35-45) mmHg pO2 (75-100) mmHg Base Excess (-2.0-2.0) O2 Saturation (94-100) g/dF ABG pH (7.35-7.45) ABG HCO3 (22-28) ABG O2 Sat (Measured) (95-100) % Santo Test A-a Gradient a/A Ratio Hemoglobin Carboxyhemoglobin (0.0-6.9) % THgb Methemoglobin (1.4-1.5) % Temperature C POC O2 Flow Rate % Sodium 139 (135-145) mmol/L Potassium 4.9 (3.5-5.1) mmol/L Chloride 103 (98-107) mmol/L Carbon Dioxide 24 (22-30) mmol/L Anion Gap 16.4 H (5-15) MEQ/L BUN 26 H (9-20) mg/dL Creatinine 0.88 (0.66-1.25) mg/dL Estimated GFR 93.1 ML/MIN Glucose 131 H (74-106) mg/dL Hemoglobin A1c (4.5-6.0) % Lactic Acid (0.4-2.0) Calcium 9.6 (8.4-10.2) mg/dL Total Bilirubin 1.40 H (0.2-1.3) mg/dL AST 38 (17-59) U/L ALT 37 (0-50) U/L Alkaline Phosphatase 292 H (38-126) U/L Troponin I (0.000-0.033) ng/mL NT-Pro-B Natriuret Pep (<300) pg/mL Serum Total Protein 7.2 (6.3-8.2) g/dL Albumin 4.5 (3.5-5.0) g/dL Influenza Type A Ag (NEGATIVE) Influenza Type B Ag (NEGATIVE) RSV (PCR) (NEGATIVE) SARS-CoV-2 (PCR) (NEGATIVE) Slides for Path Review 03/11/24 03/11/2403/11/24 Range/Units 18:45 18:45 18:54 WBC (4.23-9.07) x10^3/uL RBC (4.63-6.08) x10^6/uL Hgb (13.7-17.5) g/dL Hct (40.1-51.0) % MCV (79.0-92.2) fL MCH (25.7-32.2) pg MCHC (32.3-36.5) g/dL RDW (11.6-14.4) % Plt Count (163-337) x10^3/uL MPV (9.4-12.4) fL Gran % (34.0-67.9) % Immature Gran % (Auto) (0.001-0.429) % Nucleat RBC Rel Count (0.00-0.2) % Eos # (Auto) (0.04-0.54) x10^3/uL Immature Gran # (Auto) (0.001-0.031) x10^3u/L Absolute Lymphs (auto) (1.32-3.57) x10^3/uL Absolute Monos (auto) (0.30-0.82) x10^3/uL Absolute Nucleated RBC (0.00-0.012) x10^3u/L Lymphocytes % (21.8-53.1) % Monocytes % (5.3-12.2) % Eosinophils % (0.8-7.0) % Basophils % (0.2-1.2) % Absolute Granulocytes (1.78-5.38) x10^3/uL Basophils # (0.01-0.08) x10^3/uL D-Dimer (0.0-0.50) mg/L Puncture Site LEFT RADIAL pCO2 32 L (35-45) mmHg pO2 59 L (75-100) mmHg Base Excess 1.6 (-2.0-2.0) O2 Saturation 91.4 L (94-100) g/dF ABG pH 7.49 H (7.35-7.45) ABG HCO3 24.4 (22-28) ABG O2 Sat (Measured) 93.8 L (95-100) % Santo Test Yes A-a Gradient 186 a/A Ratio 0.24 Hemoglobin 13.3 Carboxyhemoglobin 1.6 (0.0-6.9) % THgb Methemoglobin 0.9 L (1.4-1.5) % Temperature 37.0 C POC O2 Flow Rate 40 % Sodium (135-145) mmol/L Potassium 4.5 (3.5-5.1) mmol/L Chloride (98-107) mmol/L Carbon Dioxide (22-30) mmol/L Anion Gap (5-15) MEQ/L BUN (9-20) mg/dL Creatinine (0.66-1.25) mg/dL Estimated GFR ML/MIN Glucose (74-106) mg/dL Hemoglobin A1c (4.5-6.0) % Lactic Acid (0.4-2.0) Calcium (8.4-10.2) mg/dL Total Bilirubin (0.2-1.3) mg/dL AST (17-59) U/L ALT (0-50) U/L Alkaline Phosphatase (38-126) U/L Troponin I < 0.012 (0.000-0.033) ng/mL NT-Pro-B Natriuret Pep 1150 (<300) pg/mL Serum Total Protein (6.3-8.2) g/dL Albumin (3.5-5.0) g/dL Influenza Type A Ag (NEGATIVE) Influenza Type B Ag (NEGATIVE) RSV (PCR) (NEGATIVE) SARS-CoV-2 (PCR) (NEGATIVE) Slides for Path Review 03/11/24 03/11/24 03/11/24 Range/Units 19:00 19:00 23:11 WBC (4.23-9.07) x10^3/uL RBC (4.63-6.08) x10^6/uL Hgb (13.7-17.5) g/dL Hct (40.1-51.0) % MCV (79.0-92.2) fL MCH (25.7-32.2) pg MCHC (32.3-36.5) g/dL RDW (11.6-14.4) % Plt Count (163-337) x10^3/uL MPV (9.4-12.4) fL Gran % (34.0-67.9) % Immature Gran % (Auto) (0.001-0.429) % Nucleat RBC Rel Count (0.00-0.2) % Eos # (Auto) (0.04-0.54) x10^3/uL Immature Gran # (Auto) (0.001-0.031) x10^3u/L Absolute Lymphs (auto) (1.32-3.57) x10^3/uL Absolute Monos (auto) (0.30-0.82) x10^3/uL Absolute Nucleated RBC (0.00-0.012) x10^3u/L Lymphocytes % (21.8-53.1) % Monocytes % (5.3-12.2) % Eosinophils % (0.8-7.0) % Basophils % (0.2-1.2) % Absolute Granulocytes (1.78-5.38) x10^3/uL Basophils # (0.01-0.08) x10^3/uL D-Dimer (0.0-0.50) mg/L Puncture Site pCO2 (35-45) mmHg pO2 (75-100) mmHg Base Excess (-2.0-2.0) O2 Saturation (94-100) g/dF ABG pH (7.35-7.45) ABG HCO3 (22-28) ABG O2 Sat (Measured) (95-100) % Santo Test A-a Gradient a/A Ratio Hemoglobin Carboxyhemoglobin (0.0-6.9) % THgb Methemoglobin (1.4-1.5) % Temperature C POC O2 Flow Rate % Sodium (135-145) mmol/L Potassium (3.5-5.1) mmol/L Chloride (98-107) mmol/L Carbon Dioxide (22-30) mmol/L Anion Gap (5-15) MEQ/L BUN (9-20) mg/dL Creatinine (0.66-1.25) mg/dL Estimated GFR ML/MIN Glucose (74-106) mg/dL Hemoglobin A1c (4.5-6.0) % Lactic Acid 1.5 (0.4-2.0) Calcium (8.4-10.2) mg/dL Total Bilirubin (0.2-1.3) mg/dL AST (17-59) U/L ALT (0-50) U/L Alkaline Phosphatase (38-126) U/L Troponin I 0.013 (0.000-0.033) ng/mL NT-Pro-B Natriuret Pep (<300) pg/mL Serum Total Protein (6.3-8.2) g/dL Albumin (3.5-5.0) g/dL Influenza Type A Ag NEGATIVE (NEGATIVE) Influenza Type B Ag NEGATIVE (NEGATIVE) RSV (PCR) NEGATIVE (NEGATIVE) SARS-CoV-2 (PCR) NEGATIVE (NEGATIVE) Slides for Path Review 03/12/24 03/12/24 03/12/24 Range/Units 04:40 04:40 04:40 WBC 9.1 H (4.23-9.07) x10^3/uL RBC 4.78 (4.63-6.08) x10^6/uL Hgb 12.1 L (13.7-17.5) g/dL Hct 38.3 L (40.1-51.0) % MCV 80.1 (79.0-92.2) fL MCH 25.3 L (25.7-32.2) pg MCHC 31.6 L (32.3-36.5) g/dL RDW 17.4 H (11.6-14.4) % Plt Count 280 (163-337) x10^3/uL MPV 10.5 (9.4-12.4) fL Gran % 91.2 H (34.0-67.9) % Immature Gran % (Auto) 0.4 (0.001-0.429) % Nucleat RBC Rel Count 0.0 (0.00-0.2) % Eos # (Auto) 0.01 L (0.04-0.54) x10^3/uL Immature Gran # (Auto) 0.04 H (0.001-0.031) x10^3u/L Absolute Lymphs (auto) 0.46 L (1.32-3.57) x10^3/uL Absolute Monos (auto) 0.28 L (0.30-0.82) x10^3/uL Absolute Nucleated RBC 0.00 (0.00-0.012) x10^3u/L Lymphocytes % 5.1 L (21.8-53.1) % Monocytes % 3.1 L (5.3-12.2) % Eosinophils % 0.1 L (0.8-7.0) % Basophils % 0.1 L (0.2-1.2) % Absolute Granulocytes 8.30 H (1.78-5.38) x10^3/uL Basophils # 0.01 (0.01-0.08) x10^3/uL D-Dimer (0.0-0.50) mg/L Puncture Site pCO2 (35-45) mmHg pO2 (75-100) mmHg Base Excess (-2.0-2.0) O2 Saturation (94-100) g/dF ABG pH (7.35-7.45) ABG HCO3 (22-28) ABG O2 Sat (Measured) (95-100) % Santo Test A-a Gradient a/A Ratio Hemoglobin Carboxyhemoglobin (0.0-6.9) % THgb Methemoglobin (1.4-1.5) % Temperature C POC O2 Flow Rate % Sodium 137 (135-145) mmol/L Potassium 4.0 (3.5-5.1) mmol/L Chloride 103 (98-107) mmol/L Carbon Dioxide 23 (22-30) mmol/L Anion Gap 14.8 (5-15) MEQ/L BUN 24 H (9-20) mg/dL Creatinine 0.83 (0.66-1.25) mg/dL Estimated GFR 94.7 ML/MIN Glucose 160 H (74-106) mg/dL Hemoglobin A1c (4.5-6.0) % Lactic Acid (0.4-2.0) Calcium 8.9 (8.4-10.2) mg/dL Total Bilirubin (0.2-1.3) mg/dL AST (17-59) U/L ALT (0-50) U/L Alkaline Phosphatase (38-126) U/L Troponin I < 0.012 (0.000-0.033) ng/mL NT-Pro-B Natriuret Pep 1510 (<300) pg/mL Serum Total Protein (6.3-8.2) g/dL Albumin (3.5-5.0) g/dL Influenza Type A Ag (NEGATIVE) Influenza Type B Ag (NEGATIVE) RSV (PCR) (NEGATIVE) SARS-CoV-2 (PCR) (NEGATIVE) Slides for Path Review YES 03/12/24 03/12/24 Range/Units 05:20 05:20 WBC (4.23-9.07) x10^3/uL RBC (4.63-6.08) x10^6/uL Hgb (13.7-17.5) g/dL Hct (40.1-51.0) % MCV (79.0-92.2) fL MCH (25.7-32.2) pg MCHC (32.3-36.5) g/dL RDW (11.6-14.4) % Plt Count (163-337) x10^3/uL MPV (9.4-12.4) fL Gran % (34.0-67.9) % Immature Gran % (Auto) (0.001-0.429) % Nucleat RBC Rel Count (0.00-0.2) % Eos # (Auto) (0.04-0.54) x10^3/uL Immature Gran # (Auto) (0.001-0.031) x10^3u/L Absolute Lymphs (auto) (1.32-3.57) x10^3/uL Absolute Monos (auto) (0.30-0.82) x10^3/uL Absolute Nucleated RBC (0.00-0.012) x10^3u/L Lymphocytes % (21.8-53.1) % Monocytes % (5.3-12.2) % Eosinophils % (0.8-7.0) % Basophils % (0.2-1.2) % Absolute Granulocytes (1.78-5.38) x10^3/uL Basophils # (0.01-0.08) x10^3/uL D-Dimer (0.0-0.50) mg/L Puncture Site pCO2 (35-45) mmHg pO2 (75-100) mmHg Base Excess (-2.0-2.0) O2 Saturation (94-100) g/dF ABG pH (7.35-7.45) ABG HCO3 (22-28) ABG O2 Sat (Measured) (95-100) % Santo Test A-a Gradient a/A Ratio Hemoglobin Carboxyhemoglobin (0.0-6.9) % THgb Methemoglobin (1.4-1.5) % Temperature C POC O2 Flow Rate % Sodium (135-145) mmol/L Potassium (3.5-5.1) mmol/L Chloride (98-107) mmol/L Carbon Dioxide (22-30) mmol/L Anion Gap (5-15) MEQ/L BUN (9-20) mg/dL Creatinine (0.66-1.25) mg/dL Estimated GFR ML/MIN Glucose (74-106) mg/dL Hemoglobin A1c 6.25 H (4.5-6.0) % Lactic Acid (0.4-2.0) Calcium (8.4-10.2) mg/dL Total Bilirubin 1.00 (0.2-1.3) mg/dL AST (17-59) U/L ALT (0-50) U/L Alkaline Phosphatase (38-126) U/L Troponin I (0.000-0.033) ng/mL NT-Pro-B Natriuret Pep (<300) pg/mL Serum Total Protein (6.3-8.2) g/dL Albumin (3.5-5.0) g/dL Influenza Type A Ag (NEGATIVE) Influenza Type B Ag (NEGATIVE) RSV (PCR) (NEGATIVE) SARS-CoV-2 (PCR) (NEGATIVE) Slides for Path Review Radiology Exams: Radiology Procedures Category Date Time Status CHEST 1 VIEW (PORTABLE) Stat Exams 03/11/24 18:37 Completed KUB Stat Exams 03/11/24 22:53 Completed Renal Ultrasound [KIDNEY] [US] Routine Exams 03/12/24 07:40 Completed Multi-Disciplinary Progress Notes: Multi-Disciplinary Progress Notes 03/11/24 19:10 Respiratory Note by Willow Crawford changed patient from 5L nasal cannula to 8L oxymask due to low PaO2 on ABG. Dr. Ross notified of increase in O2. Addendum entered by Willow Crawford 03/11/24 19:13: Notified RN, not Dr. Ross. Initialized on 03/11/24 19:10 - END OF NOTE Assessment/Plan (1) Bilateral pneumonia Current Visit: Yes Status: Acute Assessment & Plan: -IV antibiotics, duonebs - 4lNC 98%- baseline RA - IV steroids- watch glucose - WBC 9.1 - Chest XR 03/11 Portable chest demonstrates new diffuse airspace disease, right lung greater than left with right base consolidation. Heart not enlarged. Bony thorax intact again with degenerative changes. Code(s): J18.9 - PNEUMONIA, UNSPECIFIED ORGANISM (2) Acute exacerbation of CHF (congestive heart failure) Current Visit: Yes Status: Acute Assessment & Plan: - Patient established with Dr. Kilgore and had a recent ECHO. - Most recent echo obtained and EF 70%, + pulm HTN- follows Dr. Osborn - pulm - IV Lasix for now and monitor volume status. - BNP 1510 Code(s): I50.9 - HEART FAILURE, UNSPECIFIED (3) Edema Current Visit: Yes Status: Acute Assessment & Plan: - +3 pitting BLLE - IV lasix - Podiatry consulted for possible [place] boots Code(s): R60.9 - EDEMA, UNSPECIFIED (4) Abdominal distension Current Visit: Yes Status: Acute Assessment & Plan: - IV lasix - 2:2 CHF - KUB: IMPRESSION: 1. Excessive bowel gases in the abdomen. 2. A faint tiny right renal area radiopaque shadow. Ultrasound/CT kidneys are suggested if clinically indicated. 3. No significant dilatation of bowel loops. - Renal US: Impression: Left renal benign cyst. Remaining renal sonogram is negative Code(s): R14.0 - ABDOMINAL DISTENSION (GASEOUS) (5) Hypoxia Current Visit: Yes Status: Acute Assessment & Plan: - 2:2 pneumonia, COPD see above plan Code(s): R09.02 - HYPOXEMIA (6) Shortness of breath Current Visit: Yes Status: Acute Assessment & Plan: - 2:2 pneumonia, COPD see above plan Code(s): R06.02 - SHORTNESS OF BREATH (7) Diabetes mellitus Current Visit: No Status: Chronic Qualifiers: Diabetes mellitus type: type 2 Diabetes mellitus chcf insulin use: with supervisor intermediates use Diabetes mellitus complication status: with skin co mplications Diabetes mellitus complication detail: with other skin ulcer Qualified Code(s): E11.622 - Type 2 diabetes mellitus with other skin ulcer; Z79.4 - alf (current) use of insulin Assessment & Plan: - may use insulin pump - A1C 6.25- Controlled - Steroids started today - monitor glucose closely - Carb consistent diet Code(s): E11.9 - TYPE 2 DIABETES MELLITUS WITHOUT COMPLICATIONS (8) Skin lesion of foot Current Visit: Yes Status: Acute Assessment & Plan: - podiatry consulted for further evaluation Code(s): L98.9 - DISORDER OF THE SKIN AND SUBCUTANEOUS TISSUE, UNSPECIFIED (9) Morbid obesity with BMI of 40.0-44.9, adult Current Visit: Yes Status: Acute Assessment & Plan: - advised ADA diet and exercise control VTE: Lovenox PPI: Protonix Next of KIN: D/C plan: 3-4 days Code status: Full Code(s): E66.01 - MORBID (SEVERE) OBESITY DUE TO EXCESS CALORIES; Z68.41 - BODY MASS INDEX [BMI] 40.0-44.9, ADULT
[2024-03-12] MEDS ORDERED: Sterile H2O 10 ml IJ ONE (13:37)
[2024-03-12] MEDS ORDERED: solu-MEDROL ONE (13:37)
[2024-03-12] MEDS: solu-MEDROL 20 MG, Sterile H2O 10 ml 1 ML IV SCH (13:39)
[2024-03-12] MEDS: PROTONIX 40 MG IV IV SCH (13:39)
[2024-03-12] MEDS: Lasix 40 MG/4 ML IV SCH (13:39)
--- NOTE | 2024-03-12 18:49 | PCM.CONS ---
Podiatry HPI - Consult Date of Consultation Date: 03/12/24 Reason for Consult: vwnous insuffiecncy ulcer, ulcer or 3rd toe left foot, diabetes mellitus with peripheral neuropathy Consulting Provider: RAHAT MORE DPM - [facility] History of Present Illness: is a 68 year old male with a history of CHF (about to establish care with Dr. Kilgore; he had a recent ECHO), DM, HTN, and pulmonary hypertension (follows with Dr. Osborn). He presented to the hospital on 03/11/24 with worsening shortness of breath for the past few days. . Patient has had lower extremity edema which has been weeping and bilateral pretibial skin wounds (present on admission), and 3+ pitting edema of BLLE. In the ED, he was noted to have a bilateral pneumonia and was placed on antibiotics. Medications & Allergies Home Medications: Home Medication List Simvastatin 20Mg [Zocor 20Mg] 40 mg PO QHS 11/21/11 [History Confirmed 03/11/24] Amlodipine Besylate 5 mg [Norvasc 5 mg] 10 mg PO DAILY 06/06/18 [History Confirmed 03/11/24] Carvedilol 12.5 mg [Coreg 12.5 mg] 12.5 mg PO BID 06/06/18 [History Confirmed 03/11/24] Metformin HCl 1,000 mg PO BID 06/06/18 [History Confirmed 03/11/24] Aspirin 81 gm Chew [Baby Aspirin 81 mg Chew] 81 mg PO DAILY 04/24/20 [History Confirmed 03/11/24] Insulin Aspart [Novolog] 1 units SQ UD 04/24/20 [History Confirmed 03/11/24] Gabapentin [Neurontin ] 300 mg PO TID 03/11/24 [History Confirmed 03/11/24] Primidone 50 MG [Mysoline 50Mg] 50 mg PO TID 03/11/24 [History Confirmed 03/11/24] lisinopriL [Zestril] 30 mg PO DAILY 03/11/24 [History Confirmed 03/11/24] Allergies/Adverse Reactions: Allergies Allergy/AdvReac Type Severity Reaction Status Date / Time bacitracin [From Neosporin] Allergy Mild Blisters Verified 03/11/24 18:26 bacitracin zinc Allergy Mild Blisters Verified 03/11/24 18:26 [From Neosporin] benzalkonium chloride Allergy Mild Blisters Verified 03/11/24 18:26 [From Neosporin] gramicidin D [From Neosporin] Allergy Mild Blisters Verified 03/11/24 18:26 hydrocortisone Allergy Mild Blisters Verified 03/11/24 18:26 [From Neosporin] neomycin sulfate Allergy Mild Blisters Verified 03/11/24 18:26 [From Neosporin] polymyxin B [From Neosporin] Allergy Mild Blisters Verified 03/11/24 18:26 polymyxin B sulfate Allergy Mild Blisters Verified 03/11/24 18:26 [From Neosporin] adhesive tape Allergy Verified 03/11/24 18:26 liraglutide [From Victoza] Allergy Verified 03/11/24 18:26 morphine AdvReac Intermediate Verified 03/11/24 18:26 - Past Medical History Past Medical History: Yes Neurological History: No Pertinent History, Peripheral Neuropathy ENT History: No Pertinent History Cardiac History: Congestive Heart Failure, Coronary Artery Disease, High Cholesterol, Hypertension, Other Respiratory History: No Pertinent History Endocrine Medical History: Diabetes Type II Musculoskelatal History: Osteoarthritis GI Medical History: No Pertinent History History: No Pertinent History Pyscho-Social History: No Pertinent History Male Reproductive Disorders: No Pertinent History Comment: Pulmonary HTN, recent Echo shows left ventricular issue and patient is scheduled to see 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 Kilgore for the first time on 03/18/24. on allergy shots for chronic hay fever - Past Surgical History Past Surgical History: Yes Neuro Surgical History: No Pertinent History Cardiac History: Cardiac Catheterization Respiratory Surgery: No Pertinent History GI Surgical History: Cholecystectomy Genitourinary Surgical Hx: No Pertinent History Musculskeletal Surgical Hx: Orthopedic Surgery Male Surgical History: No Pertinent History Other Surgical History: bilateral legs - Social History Smoking Status: Never smoker Exposure to second hand smoke: No Alcohol: None Drug Use: none - Social Determinants of Health Will the patient participate in the screening: Yes Do you worry about a steady place to live?: No Do you have any problems with any of the following?: No known problems In the past 12 months,have you had to go without utilities?: No Have you or anyone in your house had to go without enough: No Transportation Issues: No Has anyone in your support network made you feel unsafe?: No Does the patient want assistance with any of the above?: No Physical Exam - Narrative Narrative Physical Exam: Podiatry Physical Exam Results - Labs Lab/Micro Results: Lab Results-Last 24 Hours 03/11/24 03/11/24 03/11/24 Range/Units 18:45 18:45 18:45 WBC 12.1 H (4.23-9.07) x10^3/uL RBC 5.08 (4.63-6.08) x10^6/uL Hgb 12.8 L (13.7-17.5) g/dL Hct 41.7 (40.1-51.0) % MCV 82.1 (79.0-92.2) fL MCH 25.2 L (25.7-32.2) pg MCHC 30.7 L (32.3-36.5) g/dL RDW 17.3 H (11.6-14.4) % Plt Count 329 (163-337) x10^3/uL MPV 10.7 (9.4-12.4) fL Gran % 81.2 H (34.0-67.9) % Immature Gran % (Auto) 0.5 H (0.001-0.429) % Nucleat RBC Rel Count 0.0 (0.00-0.2) % Eos # (Auto) 0.19 (0.04-0.54) x10^3/uL Immature Gran # (Auto) 0.06 H (0.001-0.031) x10^3u/L Absolute Lymphs (auto) 0.76 L (1.32-3.57) x10^3/uL Absolute Monos (auto) 1.21 H (0.30-0.82) x10^3/uL Absolute Nucleated RBC 0.00 (0.00-0.012) x10^3u/L Lymphocytes % 6.3 L (21.8-53.1) % Monocytes % 10.0 (5.3-12.2) % Eosinophils % 1.6 (0.8-7.0) % Basophils % 0.4 (0.2-1.2) % Absolute Granulocytes 9.85 H (1.78-5.38) x10^3/uL Basophils # 0.05 (0.01-0.08) x10^3/uL D-Dimer 0.45 (0.0-0.50) mg/L Puncture Site pCO2 (35-45) mmHg pO2 (75-100) mmHg Base Excess (-2.0-2.0) O2 Saturation (94-100) g/dF ABG pH (7.35-7.45) ABG HCO3 (22-28) ABG O2 Sat (Measured) (95-100) % Santo Test A-a Gradient a/A Ratio Hemoglobin Carboxyhemoglobin (0.0-6.9) % THgb Methemoglobin (1.4-1.5) % Temperature C POC O2 Flow Rate % Sodium 139 (135-145) mmol/L Potassium 4.9 (3.5-5.1) mmol/L Chloride 103 (98-107) mmol/L Carbon Dioxide 24 (22-30) mmol/L Anion Gap 16.4 H (5-15) MEQ/L BUN 26 H (9-20) mg/dL Creatinine 0.88 (0.66-1.25) mg/dL Estimated GFR 93.1 ML/MIN Glucose 131 H (74-106) mg/dL Hemoglobin A1c (4.5-6.0) % Lactic Acid (0.4-2.0) Calcium 9.6 (8.4-10.2) mg/dL Total Bilirubin 1.40 H (0.2-1.3) mg/dL AST 38 (17-59) U/L ALT 37 (0-50) U/L Alkaline Phosphatase 292 H (38-126) U/L Troponin I (0.000-0.033) ng/mL NT-Pro-B Natriuret Pep (<300) pg/mL Serum Total Protein 7.2 (6.3-8.2) g/dL Albumin 4.5 (3.5-5.0) g/dL Influenza Type A Ag (NEGATIVE) Influenza Type B Ag (NEGATIVE) RSV (PCR) (NEGATIVE) SARS-CoV-2 (PCR) (NEGATIVE) Slides for Path Review 03/11/24 03/11/24 03/11/24 Range/Units 18:45 18:45 18:54 WBC (4.23-9.07) x10^3/uL RBC (4.63-6.08) x10^6/uL Hgb (13.7-17.5) g/dL Hct (40.1-51.0) % MCV (79.0-92.2) fL MCH (25.7-32.2) pg MCHC (32.3-36.5) g/dL RDW (11.6-14.4) % Plt Count (163-337) x10^3/uL MPV (9.4-12.4) fL Gran % (34.0-67.9) % Immature Gran % (Auto) (0.001-0.429) % Nucleat RBC Rel Count (0.00-0.2) % Eos # (Auto) (0.04-0.54) x10^3/uL Immature Gran # (Auto) (0.001-0.031) x10^3u/L Absolute Lymphs (auto) (1.32-3.57) x10^3/uL Absolute Monos (auto) (0.30-0.82) x10^3/uL Absolute Nucleated RBC (0.00-0.012) x10^3u/L Lymphocytes % (21.8-53.1) % Monocytes % (5.3-12.2) % Eosinophils % (0.8-7.0) % Basophils % (0.2-1.2) % Absolute Granulocytes (1.78-5.38) x10^3/uL Basophils # (0.01-0.08) x10^3/uL D-Dimer (0.0-0.50) mg/L Puncture Site LEFT RADIAL pCO2 32 L (35-45) mmHg pO2 59 L (75-100) mmHg Base Excess 1.6 (-2.0-2.0) O2 Saturation 91.4 L (94-100) g/dF ABG pH 7.49 H (7.35-7.45) ABG HCO3 24.4 (22-28) ABG O2 Sat (Measured) 93.8 L (95-100) % Santo Test Yes A-a Gradient 186 a/A Ratio 0.24 Hemoglobin 13.3 Carboxyhemoglobin 1.6 (0.0-6.9) % THgb Methemoglobin 0.9 L (1.4-1.5) % Temperature 37.0 C POC O2 Flow Rate 40 % Sodium (135-145) mmol/L Potassium 4.5 (3.5-5.1) mmol/L Chloride (98-107) mmol/L Carbon Dioxide (22-30) mmol/L Anion Gap (5-15) MEQ/L BUN (9-20) mg/dL Creatinine (0.66-1.25) mg/dL Estimated GFR ML/MIN Glucose (74-106) mg/dL Hemoglobin A1c (4.5-6.0) % Lactic Acid (0.4-2.0) Calcium (8.4-10.2) mg/dL Total Bilirubin (0.2-1.3) mg/dL AST (17-59) U/L ALT (0-50) U/L Alkaline Phosphatase (38-126) U/L Troponin I < 0.012 (0.000-0.033) ng/mL NT-Pro-B Natriuret Pep 1150 (<300) pg/mL Serum Total Protein (6.3-8.2) g/dL Albumin (3.5-5.0) g/dL Influenza Type A Ag (NEGATIVE) Influenza Type B Ag (NEGATIVE) RSV (PCR) (NEGATIVE) SARS-CoV-2 (PCR) (NEGATIVE) Slides for Path Review 03/11/24 03/11/24 03/11/24 Range/Units 19:00 19:00 23:11 WBC (4.23-9.07) x10^3/uL RBC (4.63-6.08) x10^6/uL Hgb (13.7-17.5) g/dL Hct (40.1-51.0) % MCV (79.0-92.2) fL MCH (25.7-32.2) pg MCHC (32.3-36.5) g/dL RDW (11.6-14.4) % Plt Count (163-337) x10^3/uL MPV (9.4-12.4) fL Gran % (34.0-67.9) % Immature Gran % (Auto) (0.001-0.429) % Nucleat RBC Rel Count (0.00-0.2) % Eos # (Auto) (0.04-0.54) x10^3/uL Immature Gran # (Auto) (0.001-0.031) x10^3u/L Absolute Lymphs (auto) (1.32-3.57) x10^3/uL Absolute Monos (auto) (0.30-0.82) x10^3/uL Absolute Nucleated RBC (0.00-0.012) x10^3u/L Lymphocytes % (21.8-53.1) % Monocytes % (5.3-12.2) % Eosinophils % (0.8-7.0) % Basophils % (0.2-1.2) % Absolute Granulocytes (1.78-5.38) x10^3/uL Basophils # (0.01-0.08) x10^3/uL D-Dimer (0.0-0.50) mg/L Puncture Site pCO2 (35-45) mmHg pO2 (75-100) mmHg Base Excess (-2.0-2.0) O2 Saturation (94-100) g/dF ABG pH (7.35-7.45) ABG HCO3 (22-28) ABG O2 Sat (Measured) (95-100) % Santo Test A-a Gradient a/A Ratio Hemoglobin Carboxyhemoglobin (0.0-6.9) % THgb Methemoglobin (1.4-1.5) % Temperature C POC O2 Flow Rate % Sodium (135-145) mmol/L Potassium (3.5-5.1) mmol/L Chloride (98-107) mmol/L Carbon Dioxide (22-30) mmol/L Anion Gap (5-15) MEQ/L BUN (9-20) mg/dL Creatinine (0.66-1.25) mg/dL Estimated GFR ML/MIN Glucose (74-106) mg/dL Hemoglobin A1c (4.5-6.0) % Lactic Acid 1.5 (0.4-2.0) Calcium (8.4-10.2) mg/dL Total Bilirubin (0.2-1.3) mg/dL AST (17-59) U/L ALT (0-50) U/L Alkaline Phosphatase (38-126) U/L Troponin I 0.013 (0.000-0.033) ng/mL NT-Pro-B Natriuret Pep (<300) pg/mL Serum Total Protein (6.3-8.2) g/dL Albumin (3.5-5.0) g/dL Influenza Type A Ag NEGATIVE (NEGATIVE) Influenza Type B Ag NEGATIVE (NEGATIVE) RSV (PCR) NEGATIVE (NEGATIVE) SARS-CoV-2 (PCR) NEGATIVE (NEGATIVE) Slides for Path Review 03/12/24 03/12/24 03/12/24 Range/Units 04:40 04:40 04:40 WBC 9.1 H (4.23-9.07) x10^3/uL RBC 4.78 (4.63-6.08) x10^6/uL Hgb 12.1 L (13.7-17.5) g/dL Hct 38.3 L (40.1-51.0) % MCV 80.1 (79.0-92.2) fL MCH 25.3 L (25.7-32.2) pg MCHC 31.6 L (32.3-36.5) g/dL RDW 17.4 H (11.6-14.4) % Plt Count 280 (163-337) x10^3/uL MPV 10.5 (9.4-12.4) fL Gran % 91.2 H (34.0-67.9) % Immature Gran % (Auto) 0.4 (0.001-0.429) % Nucleat RBC Rel Count 0.0 (0.00-0.2) % Eos # (Auto) 0.01 L (0.04-0.54) x10^3/uL Immature Gran # (Auto) 0.04 H (0.001-0.031) x10^3u/L Absolute Lymphs (auto) 0.46 L (1.32-3.57) x10^3/uL Absolute Monos (auto) 0.28 L (0.30-0.82) x10^3/uL Absolute Nucleated RBC 0.00 (0.00-0.012) x10^3u/L Lymphocytes % 5.1 L (21.8-53.1) % Monocytes % 3.1 L (5.3-12.2) % Eosinophils % 0.1 L (0.8-7.0) % Basophils % 0.1 L (0.2-1.2) % Absolute Granulocytes 8.30 H (1.78-5.38) x10^3/uL Basophils # 0.01 (0.01-0.08) x10^3/uL D-Dimer (0.0-0.50) mg/L Puncture Site pCO2 (35-45) mmHg pO2 (75-100) mmHg Base Excess (-2.0-2.0) O2 Saturation (94-100) g/dF ABG pH (7.35-7.45) ABG HCO3 (22-28) ABG O2 Sat (Measured) (95-100) % Santo Test A-a Gradient a/A Ratio Hemoglobin Carboxyhemoglobin (0.0-6.9) % THgb Methemoglobin (1.4-1.5) % Temperature C POC O2 Flow Rate % Sodium 137 (135-145) mmol/L Potassium 4.0 (3.5-5.1) mmol/L Chloride 103 (98-107) mmol/L Carbon Dioxide 23 (22-30) mmol/L Anion Gap 14.8 (5-15) MEQ/L BUN 24 H (9-20) mg/dL Creatinine 0.83 (0.66-1.25) mg/dL Estimated GFR 94.7 ML/MIN Glucose 160 H (74-106) mg/dL Hemoglobin A1c (4.5-6.0) % Lactic Acid (0.4-2.0) Calcium 8.9 (8.4-10.2) mg/dL Total Bilirubin (0.2-1.3) mg/dL AST (17-59) U/L ALT (0-50) U/L Alkaline Phosphatase (38-126) U/L Troponin I < 0.012 (0.000-0.033) ng/mL NT-Pro-B Natriuret Pep 1510 (<300) pg/mL Serum Total Protein (6.3-8.2) g/dL Albumin (3.5-5.0) g/dL Influenza Type A Ag (NEGATIVE) Influenza Type B Ag (NEGATIVE) RSV (PCR) (NEGATIVE) SARS-CoV-2 (PCR) (NEGATIVE) Slides for Path Review YES 03/12/24 03/12/24 Range/Units 05:20 05:20 WBC (4.23-9.07) x10^3/uL RBC (4.63-6.08) x10^6/uL Hgb (13.7-17.5) g/dL Hct (40.1-51.0) % MCV (79.0-92.2) fL MCH (25.7-32.2) pg MCHC (32.3-36.5) g/dL RDW (11.6-14.4) % Plt Count (163-337) x10^3/uL MPV (9.4-12.4) fL Gran % (34.0-67.9) % Immature Gran % (Auto) (0.001-0.429) % Nucleat RBC Rel Count (0.00-0.2) % Eos # (Auto) (0.04-0.54) x10^3/uL Immature Gran # (Auto) (0.001-0.031) x10^3u/L Absolute Lymphs (auto) (1.32-3.57) x10^3/uL Absolute Monos (auto) (0.30-0.82) x10^3/uL Absolute Nucleated RBC (0.00-0.012) x10^3u/L Lymphocytes % (21.8-53.1) % Monocytes % (5.3-12.2) % Eosinophils % (0.8-7.0) % Basophils % (0.2-1.2) % Absolute Granulocytes (1.78-5.38) x10^3/uL Basophils # (0.01-0.08) x10^3/uL D-Dimer (0.0-0.50) mg/L Puncture Site pCO2 (35-45) mmHg pO2 (75-100) mmHg Base Excess (-2.0-2.0) O2 Saturation (94-100) g/dF ABG pH (7.35-7.45) ABG HCO3 (22-28) ABG O2 Sat (Measured) (95-100) % Santo Test A-a Gradient a/A Ratio Hemoglobin Carboxyhemoglobin (0.0-6.9) % THgb Methemoglobin (1.4-1.5) % Temperature C POC O2 Flow Rate % Sodium (135-145) mmol/L Potassium (3.5-5.1) mmol/L Chloride (98-107) mmol/L Carbon Dioxide (22-30) mmol/L Anion Gap (5-15) MEQ/L BUN (9-20) mg/dL Creatinine (0.66-1.25) mg/dL Estimated GFR ML/MIN Glucose (74-106) mg/dL Hemoglobin A1c 6.25 H (4.5-6.0) % Lactic Acid (0.4-2.0) Calcium (8.4-10.2) mg/dL Total Bilirubin 1.00 (0.2-1.3) mg/dL AST (17-59) U/L ALT (0-50) U/L Alkaline Phosphatase (38-126) U/L Troponin I (0.000-0.033) ng/mL NT-Pro-B Natriuret Pep (<300) pg/mL Serum Total Protein (6.3-8.2) g/dL Albumin (3.5-5.0) g/dL Influenza Type A Ag (NEGATIVE) Influenza Type B Ag (NEGATIVE) RSV (PCR) (NEGATIVE) SARS-CoV-2 (PCR) (NEGATIVE) Slides for Path Review Accuchecks Date 03/12/24 Date 03/12/24 Date 03/12/24 Date 03/11/24 Time 16:15 Time 11:21 Time 07:04 Time 22:47 - Radiology Impressions Radiology Exams & Impressions: Radiology Procedures Category Date Time Status CHEST 1 VIEW (PORTABLE) Stat Exams 03/11/24 18:37 Completed KUB Stat Exams 03/11/24 22:53 Completed Renal Ultrasound [KIDNEY] [US] Routine Exams 03/12/24 07:40 Completed VENOUS BILATERAL EXTREMITY [US] Routine Exams 03/12/24 17:40 Ordered - Other Procedures and Tests Respiratory Therapy 03/11/24 23:13 Oxygen Oxymask LPM 6 lpm 03/12/24 07:49 Respiratory Therapy Assessment DAILY Assessment/Plan (1) Acute exacerbation of CHF (congestive heart failure) Current Visit: Yes Status: Acute Code(s): I50.9 - HEART FAILURE, UNSPECIFIED (2) Edema Current Visit: Yes Status: Acute Assessment & Plan: chronic issue with hx of DVT Venous dopplers orders to assess for acute DVT Code(s): R60.9 - EDEMA, UNSPECIFIED (3) Morbid obesity with BMI of 40.0-44.9, adult Current Visit: Yes Status: Acute Code(s): E66.01 - MORBID (SEVERE) OBESITY DUE TO EXCESS CALORIES; Z68.41 - BODY MASS INDEX [BMI] 40.0-44.9, ADULT (4) Shortness of breath Current Visit: Yes Status: Acute Code(s): R06.02 - SHORTNESS OF BREATH (5) Skin lesion of foot Current Visit: Yes Status: Acute Assessment & Plan: Cultures obtained of right leg and leg foot 3rd toe. Currently on empiric therapy with rocephin and azithromax Will reassess once Culture and sensitivity obtained. 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 Will monitor however exacerbation of leg swelling likely secondary to systemic condition. 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
[2024-03-13] MEDS: ZOCOR 20MG PO SCH (00:42)
[2024-03-13] MEDS: ROCEPHIN 1 GM / 100 ML NaCl 1 GM/100 ML IVPB IV SCH (00:42)
[2024-03-13] MEDS: Zithromax 500 MG/ 250 ML NaCl Premix 500 MG/250 ML IVPB IV SCH (01:09)
[2024-03-13 05:45] LABS: Hematocrit 40.9 % (40.1-51.0); Hemoglobin 12.8 g/dL (13.7-17.5); Mean Cell Volume 80.2 fL (79.0-92.2); Mean Corpuscular Hemoglobin 25.1 pg (25.7-32.2); Mean Corpuscular Hgb Concent. 31.3 g/dL (32.3-36.5); Platelet Count 337 x10^3/uL (163-337); Red Cell Distribution Width 17.3 % (11.6-14.4)
[2024-03-13 06:09] LABS: ALBUMIN 4.3 g/dL (3.5-5.0); ANION GAP 16.5 MEQ/L (5-15); BILIRUBIN,TOTAL 0.9 mg/dL (0.2-1.3); Creatinine 1 0.9 mg/dL (0.66-1.25); EST GLOMERULAR FILTRATION RATE 92.5 ML/MIN; PREALBUMIN 13.59 mg/dL (17.6-36.0); Potassium 4.1 mmol/L (3.5-5.1); Total Protein 7.3 g/dL (6.3-8.2)
--- NOTE | 2024-03-13 10:59 | XRAY ---
Indication: Bilateral leg edema. Two-dimensional sonogram and color Doppler imaging major venous vessels left and right leg performed. Comparison: April 25, 2023 No thrombus seen in the examined deep venous vessels left and right leg including greater saphenous vein. Veins demonstrate normal compressibility. Venous waveforms are normal with and without augmentation. Impression: Left and right legs again negative for DVT.
--- NOTE | 2024-03-13 13:01 | PCM.NOTE ---
Date and Time: 03/13/24 1254 Subjective Assessment: 03/12/24 is a 68 year old male with a history of CHF (about to establish care with Dr. Kilgore; he had a recent ECHO), DM, HTN, and pulmonary hypertension (follows with Dr. Osborn). He presented to the hospital on 03/11/24 with worsening shortness of breath for the past few days. Upon arrival to the ED, he had a saturation of 86% on room air with increased work of breathing. He denied chest pain. Patient has had lower extremity edema which has been weeping and bilateral pretibial skin wounds (present on admission), and 3+ pitting edema of BLLE. In the ED, he was noted to have a bilateral pneumonia and was placed on antibiotics. EF 70% per most recent echo as records obtained from cardiology. Podiatry consulted for BLLE edema, BLLE wounds/ blisters, and left 3rd toe abrasion. Renal US ordered for abnormal KUB - US shows left renal benign cyst. He is on 4LNC- 98%, baseline RA. He denies Abd pain, N/V/D. 03/13/24 Pt resting in bed. He explains he does not feel well today. He is on 2LNC at 98% today- this is an improvement as he was on 4lNC yesterday. He does not wear home O2 at baseline. Venous duplex ordered today by podiatry and negative. Wound cultures pending by podiatry. WBC elevated likely 2:2 steroids. Continue antibiotics, steroids, duonebs for Bl pneumonia. Continue lasix for CHF. Pt denies CP, abd. pain, N/V/D. - Review of Systems Constitutional: No Fever, No Chills Eyes: No Symptoms Ears, Nose, & Throat: No Symptoms Respiratory: Short Of Breath, No Cough Cardiac: Edema (+ 3 BLLE), No Chest Pain, No Syncope Abdominal/Gastrointestinal: No Abdominal Pain, No Nausea, No Vomiting, No Diarrhea Genitourinary Symptoms: No Dysuria Musculoskeletal: No Back Pain, No Neck Pain Skin: Skin Lesions (BLLE), No Rash Neurological: No Dizziness, No Focal Weakness, No Sensory Changes Psychological: No Symptoms Endocrine: No Symptoms Hematologic/Lymphatic: No Symptoms Immunological/Allergic: No Symptoms Objective Exam General Appearance: no apparent distress, alert, obese Neurologic Exam: alert, oriented x 3, cooperative, normal mood/affect, nml cerebellar function, sensation nml, No motor deficits Skin Exam: normal color, warm, dry Wound Assessment: Skin/Wound Assessment Wound/Incision Assessment Start: 03/11/24 21:47 Text: Status: Active Freq: Q6H Protocol: Document 03/13/24 10:00 RF (Rec: 03/13/24 10:25 RF [id number]) Wound/Incision Assessment Bilat lower legs Wound Assessment Shift Assessment Wound Type edematous Wound Stage Non Pressure Wound Dressing Status Changed Drainage Amount None General Appearance Clean/Dry,Reddened Surrounding Tissue [place],Edematous-pitting,Weeping Primary Dressing Bandaid Comment open areas on legs have been cleaned with iodine and covered with bandaids ON PRODUCT SAFETY MANAGER. Wound Photo Photo Taken Yes Eye Exam: PERRL, EOMI, eyes nml inspection Ears, Nose, Throat Exam: normal ENT inspection, pharynx normal, moist mucous membranes Neck Exam: normal inspection, non-tender, supple, full range of motion Respiratory Exam: normal breath sounds, lungs clear, No respiratory distress Cardiovascular Exam: regular rate/rhythm, normal heart sounds, edema (+3 BLLE) Gastrointestinal/Abdomen Exam: soft, No tenderness, No mass Extremity Exam: normal inspection, normal range of motion, inflammation, swelling, tenderness (BLLE) Back Exam: normal inspection, normal range of motion, No CVA tenderness, No vertebral tenderness Male Genitalia Exam: deferred Rectal Exam: deferred Objective Data Vital Signs: Vital Signs - 24 hr Temp Pulse Resp BP Pulse Ox 03/13/24 08:00 98.1 F 68 16 140/70 96 03/13/24 05:09 61 18 97 03/13/24 04:00 97.3 F 60 16 136/65 97 03/13/24 01:14 75 18 98 03/13/24 00:00 97.3 F 66 18 134/66 96 03/12/24 20:00 98.1 F 78 18 157/70 95 03/12/24 19:10 71 18 98 03/12/24 16:00 98.1 F 64 19 127/62 97 03/12/24 13:51 75 24 98 Pain Assessment - Last Documented Pain Intensity 3 Intake and Output: Intake & Output 03/11/24 03/12/24 03/13/24 03/14/24 11:59 11:59 11:59 11:59 Intake Total 200 2060 Output Total 1300 400 Balance -1100 1660 Weight 130.7 kg 277.2 kg Lab Results: Lab Results-Last 24 Hours 03/13/24 03/13/24 Range/Units 05:35 05:35 WBC 14.0 H (4.23-9.07) x10^3/uL RBC 5.10 (4.63-6.08) x10^6/uL Hgb 12.8 L (13.7-17.5) g/dL Hct 40.9 (40.1-51.0) % MCV 80.2 (79.0-92.2) fL MCH 25.1 L (25.7-32.2) pg MCHC 31.3 L (32.3-36.5) g/dL RDW 17.3 H (11.6-14.4) % Plt Count 337 (163-337) x10^3/uL MPV 11.0 (9.4-12.4) fL Sodium 138 (135-145) mmol/L Potassium 4.1 (3.5-5.1) mmol/L Chloride 101 (98-107) mmol/L Carbon Dioxide 25 (22-30) mmol/L Anion Gap 16.5 H (5-15) MEQ/L BUN 28 H (9-20) mg/dL Creatinine 0.90 (0.66-1.25) mg/dL Estimated GFR 92.5 ML/MIN Glucose 169 H (74-106) mg/dL Calcium 9.0 (8.4-10.2) mg/dL Total Bilirubin 0.90 (0.2-1.3) mg/dL AST 29 (17-59) U/L ALT 37 (0-50) U/L Alkaline Phosphatase 232 H (38-126) U/L Serum Total Protein 7.3 (6.3-8.2) g/dL Albumin 4.3 (3.5-5.0) g/dL Prealbumin 13.59 L (17.6-36.0) mg/dL Radiology Exams: Radiology Procedures Category Date Time Status CHEST 1 VIEW (PORTABLE) Stat Exams 03/11/24 18:37 Completed KUB Stat Exams 03/11/24 22:53 Completed Renal Ultrasound [KIDNEY] [US] Routine Exams 03/12/24 07:40 Completed VENOUS BILATERAL EXTREMITY [US] Routine Exams 03/13/24 17:40 Completed Multi-Disciplinary Progress Notes: Multi-Disciplinary Progress Notes 03/13/24 12:08 Case Management Note by Celestina Yates PATIENT DENIES ANY NEW NEEDS AT TIME OF DC. HE DENIES ANY NEW NEEDS AT TIME OF DC. IF UNNA BOOTS ORDERED AT DC- HE PLANS TO FOLLOW UP IN RAHAT'S OFFICE FOR THIS Initialized on 03/13/24 12:08 - END OF NOTE Assessment/Plan (1) Bilateral pneumonia Current Visit: Yes Status: Acute Code(s): J18.9 - PNEUMONIA, UNSPECIFIED ORGANISM (2) Acute exacerbation of CHF (congestive heart failure) Current Visit: Yes Status: Acute Code(s): I50.9 - HEART FAILURE, UNSPECIFIED (3) Edema Current Visit: Yes Status: Acute Code(s): R60.9 - EDEMA, UNSPECIFIED (4) Abdominal distension Current Visit: Yes Status: Acute Code(s): R14.0 - ABDOMINAL DISTENSION (GASEOUS) (5) Hypoxia Current Visit: Yes Status: Acute Code(s): R09.02 - HYPOXEMIA (6) Shortness of breath Current Visit: Yes Status: Acute Code(s): R06.02 - SHORTNESS OF BREATH (7) Diabetes mellitus Current Visit: No Status: Chronic Qualifiers: Diabetes mellitus type: type 2 Diabetes mellitus group home insulin use: with professor of rhetoric use Diabetes mellitus complication status: with skin complications Diabetes mellitus complication detail: with other skin ulcer Qualified Code(s): E11.622 - Type 2 diabetes mellitus with other skin ulcer; Z79.4 - otolaryngology physician (current) use of insulin Code(s): E11.9 - TYPE 2 DIABETES MELLITUS WITHOUT COMPLICATIONS (8) Skin lesion of foot Current Visit: Yes Status: Acute Code(s): L98.9 - DISORDER OF THE SKIN AND SUBCUTANEOUS TISSUE, UNSPECIFIED (9) Morbid obesity with BMI of 40.0-44.9, adult Current Visit: Yes Status: Acute Assessment & Plan: (1) Bilateral pneumonia Current Visit: Yes Status: Acute Assessment & Plan: -IV antibiotics, duonebs - 4lNC 98%- baseline RA - IV steroids- watch glucose - WBC 9.1 - Chest XR 03/11 Portable chest demonstrates new diffuse airspace disease, right lung greater than left with right base consolidation. Heart not enlarged. Bony thorax intact again with degenerative changes. 03/13 - WBC 14.0 likely 2:2 steroids - On 2lNC- 98% BL RA - IS - BC x2 negative Code(s): J18.9 - PNEUMONIA, UNSPECIFIED ORGANISM (2) Acute exacerbation of CHF (congestive heart failure) Current Visit: Yes Status: Acute Assessment & Plan: - Patient established with Dr. Kilgore and had a recent ECHO. - Most recent echo obtained and EF 70%, + pulm HTN- follows Dr. Osborn - pulm - IV Lasix for now and monitor volume status. - BNP 1510 03/13 - Wt loss 5kg from yesterday Code(s): I50.9 - HEART FAILURE, UNSPECIFIED (3) Edema Current Visit: Yes Status: Acute Assessment & Plan: - +3 pitting BLLE - IV lasix - Podiatry consulted for possible Unna boots 03/13 - Venous Duplex BLLE- negative - wounc cultures of BLLE pending - reviewed podiatry note and agree with plan of care Code(s): R60.9 - EDEMA, UNSPECIFIED (4) Abdominal distension Current Visit: Yes Status: Acute Assessment & Plan: - IV lasix - 2:2 CHF - KUB: IMPRESSION: 1. Excessive bowel gases in the abdomen. 2. A faint tiny right renal area radiopaque shadow. Ultrasound/CT kidneys are suggested if clinically indicated. 3. No significant dilatation of bowel loops. - Renal US: Impression: Left renal benign cyst. Remaining renal sonogram is negative Code(s): R14.0 - ABDOMINAL DISTENSION (GASEOUS) (5) Hypoxia Current Visit: Yes Status: Acute Assessment & Plan: - 2:2 pneumonia, COPD see above plan Code(s): R09.02 - HYPOXEMIA (6) Shortness of breath Current Visit: Yes Status: Acute Assessment & Plan: - 2:2 pneumonia, COPD see above plan Code(s): R06.02 - SHORTNESS OF BREATH (7) Diabetes mellitus Current Visit: No Status: Chronic Qualifiers: Diabetes mellitus type: type 2 Diabetes mellitus group home insulin use: with professor of rhetoric use Diabetes mellitus complication status: with skin complications Diabetes mellitus complication detail: with other skin ulcer Qualified Code(s): E11.622 - Type 2 diabetes mellitus with other skin ulcer; Z79.4 - otolaryngology physician (current) use of insulin Assessment & Plan: - may use insulin pump - A1C 6.25- Controlled - Steroids started today - monitor glucose closely - Carb consistent diet Code(s): E11.9 - TYPE 2 DIABETES MELLITUS WITHOUT COMPLICATIONS (8) Skin lesion of foot Current Visit: Yes Status: Acute Assessment & Plan: - podiatry consulted for further evaluation Code(s): L98.9 - DISORDER OF THE SKIN AND SUBCUTANEOUS TISSUE, UNSPECIFIED (9) Morbid obesity with BMI of 40.0-44.9, adult Current Visit: Yes Status: Acute Assessment & Plan: - advised ADA diet and exercise control VTE: Lovenox PPI: Protonix Next of KIN: Lexi Smith [phone] D/c plan: 2-3 days Code status: Full Code(s): E66.01 - MORBID (SEVERE) OBESITY DUE TO EXCESS CALORIES; Z68.41 - BODY MASS INDEX [BMI] 40.0-44.9, ADULT
[2024-03-13] MEDS: DUONEB 0.5-3 MG/3 ml Neb IH SCH (19:33)
[2024-03-14 06:03] LABS: Hematocrit 41.1 % (40.1-51.0); Hemoglobin 12.8 g/dL (13.7-17.5); Mean Cell Volume 80.1 fL (79.0-92.2); Mean Corpuscular Hgb Concent. 31.1 g/dL (32.3-36.5); Mean Platelet Volume 10.4 fL (9.4-12.4); Platelet Count 340 x10^3/uL (163-337); Red Blood Count 5.13 x10^6/uL (4.63-6.08); Red Cell Distribution Width 17.1 % (11.6-14.4); White Blood Count 12.5 x10^3/uL (4.23-9.07)
[2024-03-14 06:17] LABS: ALBUMIN 4.3 g/dL (3.5-5.0); ANION GAP 13.6 MEQ/L (5-15); BILIRUBIN,TOTAL 0.8 mg/dL (0.2-1.3); Calcium 9.1 mg/dL (8.4-10.2); Creatinine 1 0.95 mg/dL (0.66-1.25); EST GLOMERULAR FILTRATION RATE 86.6 ML/MIN; Total Protein 7.2 g/dL (6.3-8.2)
--- NOTE | 2024-03-14 11:31 | PCM.NOTE ---
Date and Time: 03/14/24 1124 Subjective Assessment: 03/12/24 is a 68 year old male with a history of CHF (about to establish care with Dr. Kilgore; he had a recent ECHO), DM, HTN, and pulmonary hypertension (follows with Dr. Osborn). He presented to the hospital on 03/11/24 with worsening shortness of breath for the past few days. Upon arrival to the ED, he had a saturation of 86% on room air with increased work of breathing. He denied chest pain. Patient has had lower extremity edema which has been weeping and bilateral pretibial skin wounds (present on admission), and 3+ pitting edema of BLLE. In the ED, he was noted to have a bilateral pneumonia and was placed on antibiotics. EF 70% per most recent echo as records obtained from cardiology. Podiatry consulted for BLLE edema, BLLE wounds/ blisters, and left 3rd toe abrasion. Renal US ordered for abnormal KUB - US shows left renal benign cyst. He is on 4LNC- 98%, baseline RA. He denies Abd pain, N/V/D. 03/13/24 Pt resting in bed. He explains he does not feel well today. He is on 2LNC at 98% today- this is an improvement as he was on 4lNC yesterday. He does not wear home O2 at baseline. Venous duplex ordered today by podiatry and negative. Wound cultures pending by podiatry. WBC elevated likely 2:2 steroids. Continue antibiotics, steroids, duonebs for Bl pneumonia. Continue lasix for CHF. Pt denies CP, abd. pain, N/V/D. 03/14/24 Pt resting in chair. He is feeling better today. He c/o cough w/o production. He is RA 97% today. He has been walking around the room fine w/o being SOB. BLLE wrapped by podiatry yesterday. Edema of BLLE improved. Continue lasix and antibiotics. Will change antibiotics to PO . Pt likely to d/c tomorrow. He denies any further concerns at this time. - Review of Systems Constitutional: No Fever, No Chills Eyes: No Symptoms Ears, Nose, & Throat: No Symptoms Respiratory: Cough, No Short Of Breath Cardiac: No Chest Pain, No Edema, No Syncope Abdominal/Gastrointestinal: No Abdominal Pain, No Nausea, No Vomiting, No Diarrhea Genitourinary Symptoms: No Dysuria Musculoskeletal: No Back Pain, No Neck Pain Skin: Other (BLLE wrapped by podiatry with UNNA boots yesterday. ), No Rash Neurological: No Dizziness, No Focal Weakness, No Sensory Changes Psychological: No Symptoms Endocrine: No Symptoms Hematologic/Lymphatic: No Symptoms Immunological/Allergic: No Symptoms Objective Exam General Appearance: no apparent distress, alert, obese Neurologic Exam: alert, oriented x 3, cooperative, normal mood/affect, nml cerebellar function, sensation nml, No motor deficits Skin Exam: normal color, warm, dry, other (BLLE wrapped with UNNA BOOTS) Wound Assessment: Skin/Wound Assessment Wound/Incision Assessment Start: 03/11/24 21:47 Text: Status: Active Freq: Q6H Protocol: Document 03/14/24 10:00 EK (Rec: 03/14/24 10:38 EK [id number]) Wound/Incision Assessment Bilat lower legs Wound Assessment Shift Assessment Wound Type edematous Wound Stage Non Pressure Wound Dressing Status Dry & Intact Comment RICKEY BOOTS REMAIN IN PLACE AND ARE CLEAN AND DRY Eye Exam: PERRL, EOMI, eyes nml inspection Ears, Nose, Throat Exam: normal ENT inspection, pharynx normal, moist mucous membranes Neck Exam: normal inspection, non-tender, supple, full range of motion Respiratory Exam: normal breath sounds, lungs clear, No respiratory distress Cardiovascular Exam: regular rate/rhythm, normal heart sounds Gastrointestinal/Abdomen Exam: soft, No tenderness, No mass Extremity Exam: normal inspection, normal range of motion Back Exam: normal inspection, normal range of motion, No CVA tenderness, No vertebral tenderness Male Genitalia Exam: deferred Rectal Exam: deferred Objective Data Vital Signs: Vital Signs - 24 hr Temp Pulse Resp BP Pulse Ox 03/14/24 08:00 98 F 66 29 H 151/77 95 03/14/24 07:17 68 16 97 03/14/24 04:00 97.3 F 59 L 17 133/73 96 03/14/24 00:00 97.5 F 72 17 155/71 94 L 03/13/24 20:00 97.7 F 79 19 139/72 95 03/13/24 19:49 68 16 95 03/13/24 16:00 97.5 F 77 16 147/69 94 L 03/13/24 13:01 77 16 97 03/13/24 12:00 97.8 F 73 22 143/67 97 Pain Assessment - Last Documented Pain Intensity 0 Intake and Output: Intake & Output 03/11/24 03/12/24 03/13/24 03/14/24 11:59 11:59 11:59 11:59 Intake Total 200 2060 1660 Output Total 3239 453 0993 Balance -1100 1660 -5665 Weight 130.7 kg 125.7 kg 125.7 kg Lab Results: Lab Results-Last 24 Hours 03/13/24 03/14/24 03/14/24 Range/Units 16:34 05:56 05:56 WBC 12.5 H (4.23-9.07) x10^3/uL RBC 5.13 (4.63-6.08) x10^6/uL Hgb 12.8 L (13.7-17.5) g/dL Hct 41.1 (40.1-51.0) % MCV 80.1 (79.0-92.2) fL MCH 25.0 L (25.7-32.2) pg MCHC 31.1 L (32.3-36.5) g/dL RDW 17.1 H (11.6-14.4) % Plt Count 340 H (163-337) x10^3/uL MPV 10.4 (9.4-12.4) fL Sodium 138 (135-145) mmol/L Potassium 4.0 (3.5-5.1) mmol/L Chloride 101 (98-107) mmol/L Carbon Dioxide 28 (22-30) mmol/L Anion Gap 13.6 (5-15) MEQ/L BUN 33 H (9-20) mg/dL Creatinine 0.95 (0.66-1.25) mg/dL Estimated GFR 86.6 ML/MIN Glucose 150 H (74-106) mg/dL POC Glucometer 190 H (74 to 106) mg/dL Calcium 9.1 (8.4-10.2) mg/dL Total Bilirubin 0.80 (0.2-1.3) mg/dL AST 39 (17-59) U/L ALT 38 (0-50) U/L Alkaline Phosphatase 222 H (38-126) U/L Serum Total Protein 7.2 (6.3-8.2) g/dL Albumin 4.3 (3.5-5.0) g/dL 03/14/24 03/14/24 Range/Units 06:55 11:17 WBC (4.23-9.07) x10^3/uL RBC (4.63-6.08) x10^6/uL Hgb (13.7-17.5) g/dL Hct (40.1-51.0) % MCV (79.0-92.2) fL MCH (25.7-32.2) pg MCHC (32.3-36.5) g/dL RDW (11.6-14.4) % Plt Count (163-337) x10^3/uL MPV (9.4-12.4) fL Sodium (135-145) mmol/L Potassium (3.5-5.1) mmol/L Chloride (98-107) mmol/L Carbon Dioxide (22-30) mmol/L Anion Gap (5-15) MEQ/L BUN (9-20) mg/dL Creatinine (0.66-1.25) mg/dL Estimated GFR ML/MIN Glucose (74-106) mg/dL POC Glucometer 154 H 196 H (74 to 106) mg/dL Calcium (8.4-10.2) mg/dL Total Bilirubin (0.2-1.3) mg/dL AST (17-59) U/L ALT (0-50) U/L Alkaline Phosphatase (38-126) U/L Serum Total Protein (6.3-8.2) g/dL Albumin (3.5-5.0) g/dL Radiology Exams: Radiology Procedures Category Date Time Status VENOUS BILATERAL EXTREMITY [US] Routine Exams 03/13/24 17:40 Completed Multi-Disciplinary Progress Notes: Multi-Disciplinary Progress Notes 03/13/24 12:08 Case Management Note by Celestina Yates PATIENT DENIES ANY NEW NEEDS AT TIME OF DC. HE DENIES ANY NEW NEEDS AT TIME OF DC. IF UNNA BOOTS ORDERED AT DC- HE PLANS TO FOLLOW UP IN RAHAT'S OFFICE FOR THIS Initialized on 03/13/24 12:08 - END OF NOTE Assessment/Plan (1) Bilateral pneumonia Current Visit: Yes Status: Acute Code(s): J18.9 - PNEUMONIA, UNSPECIFIED ORGANISM (2) Acute exacerbation of CHF (congestive heart failure) Current Visit: Yes Status: Acute Code(s): I50.9 - HEART FAILURE, UNSPECIFIED (3) Edema Current Visit: Yes Status: Acute Code(s): R60.9 - EDEMA, UNSPECIFIED (4) Abdominal distension Current Visit: Yes Status: Acute Code(s): R14.0 - ABDOMINAL DISTENSION (GASEOUS) (5) Hypoxia Current Visit: Yes Status: Acute Code(s): R09.02 - HYPOXEMIA (6) Shortness of breath Current Visit: Yes Status: Acute Code(s): R06.02 - SHORTNESS OF BREATH (7) Diabetes mellitus Current Visit: No Status: Chronic Qualifiers: Diabetes mellitus type: type 2 Diabetes mellitus terminal operator insulin use: with group home use Diabetes mellitus complication status: with skin complications Diabetes mellitus complication detail: with other skin ulcer Qualified Code(s): E11.622 - Type 2 diabetes mellitus with other skin ulcer; Z79.4 - [facility] (current) use of insulin Code(s): E11.9 - TYPE 2 DIABETES MELLITUS WITHOUT COMPLICATIONS (8) Skin lesion of foot Current Visit: Yes Status: Acute Code(s): L98.9 - DISORDER OF THE SKIN AND SUBCUTANEOUS TISSUE, UNSPECIFIED (9) Morbid obesity with BMI of 40.0-44.9, adult Current Visit: Yes Status: Acute Assessment & Plan: (1) Bilateral pneumonia Current Visit: Yes Status: Acute Assessment & Plan: -IV antibiotics, duonebs - 4lNC 98%- baseline RA - IV steroids- watch glucose - WBC 9.1 - Chest XR 03/11 Portable chest demonstrates new diffuse airspace disease, right lung greater than left with right base consolidation. Heart not enlarged. Bony thorax intact again with degenerative changes. 03/13 - WBC 14.0 likely 2:2 steroids - On 2lNC- 98% BL RA - IS - BC x2 negative 03/14 - antibiotics changed to doxycycline PO - RA 97% Code(s): J18.9 - PNEUMONIA, UNSPECIFIED ORGANISM (2) Acute exacerbation of CHF (congestive heart failure) Current Visit: Yes Status: Acute Assessment & Plan: - Patient established with Dr. Kilgore and had a recent ECHO. - Most recent echo obtained and EF 70%, + pulm HTN- follows Dr. Anurag - pulm - IV Lasix for now and monitor volume status. - BNP 1510 03/13 - Wt loss 5kg from yesterday 03/14 - weight not charted today - edema of BLLE improved with UNNA boots - decreased SOB today, not requiring O2 Code(s): I50.9 - HEART FAILURE, UNSPECIFIED (3) Edema Current Visit: Yes Status: Acute Assessment & Plan: - +3 pitting BLLE - IV lasix - Podiatry consulted for possible Unna boots 03/13 - Venous Duplex BLLE- negative - wounc cultures of BLLE pending - reviewed podiatry note and agree with plan of care 03/14 - edema of BLLE improved with UNNA boots Code(s): R60.9 - EDEMA, UNSPECIFIED (4) Abdominal distension Current Visit: Yes Status: Acute Assessment & Plan: - IV lasix - 2:2 CHF - KUB: IMPRESSION: 1. Excessive bowel gases in the abdomen. 2. A faint tiny right renal area radiopaque shadow. Ultrasound/CT kidneys are suggested if clinically indicated. 3. No significant dilatation of bowel loops. - Renal US: Impression: Left renal benign cyst. Remaining renal sonogram is negative Code(s): R14.0 - ABDOMINAL DISTENSION (GASEOUS) (5) Hypoxia Current Visit: Yes Status: Acute Assessment & Plan: - 2:2 pneumonia, COPD see above plan Code(s): R09.02 - HYPOXEMIA (6) Shortness of breath Current Visit: Yes Status: Acute Assessment & Plan: - 2:2 pneumonia, COPD see above plan Code(s): R06.02 - SHORTNESS OF BREATH (7) Diabetes mellitus Current Visit: No Status: Chronic Qualifiers: Diabetes mellitus type: type 2 Diabetes mellitus terminal operator insulin use: with group home use Diabetes mellitus complication status: with skin complications Diabetes mellitus complication detail: with other skin ulcer Qualified Code(s): E11.622 - Type 2 diabetes mellitus with other skin ulcer; Z79.4 - oil heaterman (current) use of insulin Assessment & Plan: - may use insulin pump - A1C 6.25- Controlled - Steroids started today - monitor glucose closely - Carb consistent diet Code(s): E11.9 - TYPE 2 DIABETES MELLITUS WITHOUT COMPLICATIONS (8) Skin lesion of foot Current Visit: Yes Status: Acute Assessment & Plan: - podiatry consulted for further evaluation Code(s): L98.9 - DISORDER OF THE SKIN AND SUBCUTANEOUS TISSUE, UNSPECIFIED (9) Morbid obesity with BMI of 40.0-44.9, adult Current Visit: Yes Status: Acute Assessment & Plan: - advised ADA diet and exercise control VTE: Lovenox PPI: Protonix Next of KIN: Lexi Smith [phone] D/c plan: tomorrow Code status: Full Code(s): E66.01 - MORBID (SEVERE) OBESITY DUE TO EXCESS CALORIES; Z68.41 - BODY MASS INDEX [BMI] 40.0-44.9, ADULT
[2024-03-14] MEDS: Vibramycin 100 MG PO SCH (12:43)
[2024-03-15 06:30] LABS: Hematocrit 41.9 % (40.1-51.0); Hemoglobin 13.1 g/dL (13.7-17.5); Mean Cell Volume 79.7 fL (79.0-92.2); Mean Corpuscular Hemoglobin 24.9 pg (25.7-32.2); Mean Corpuscular Hgb Concent. 31.3 g/dL (32.3-36.5); Mean Platelet Volume 10.7 fL (9.4-12.4); Platelet Count 372 x10^3/uL (163-337); Red Blood Count 5.26 x10^6/uL (4.63-6.08); White Blood Count 13.7 x10^3/uL (4.23-9.07)
[2024-03-15 06:41] LABS: ALBUMIN 4.3 g/dL (3.5-5.0); ANION GAP 15.2 MEQ/L (5-15); BILIRUBIN,TOTAL 0.9 mg/dL (0.2-1.3); Calcium 9.2 mg/dL (8.4-10.2); Creatinine 1 0.9 mg/dL (0.66-1.25); EST GLOMERULAR FILTRATION RATE 92.5 ML/MIN; Potassium 3.9 mmol/L (3.5-5.1); Total Protein 7.1 g/dL (6.3-8.2)
[2024-03-15 11:31] VITALS: BP 152/69; PULSE 53; RESP 20; TEMP 97.5; O2SAT 97
--- NOTE | 2024-03-15 12:36 | PCM.DS ---
Discharge Summary Date of Admission: 03/11/24 22:59 Date of Discharge: 03/15/24 Admitting Physician: TAURUS INFANTE MD Consults: Consults on Case 03/12/24 10:13 Consult Podiatry ROUTINE Primary Care Provider: CHYNA HUNT DO Allergies Allergies bacitracin [From Neosporin] Allergy (Mild, Verified 03/11/24 18:26) Blisters neosporin ointment bacitracin zinc [From Neosporin] Allergy (Mild, Verified 03/11/24 18:26) Blisters neosporin ointment benzalkonium chloride [From Neosporin] Allergy (Mild, Verified 03/11/24 18:26) Blisters neosporin ointment gramicidin D [From Neosporin] Allergy (Mild, Verified 03/11/24 18:26) Blisters neosporin ointment hydrocortisone [From Neosporin] Allergy (Mild, Verified 03/11/24 18:26) Blisters neosporin ointment neomycin sulfate [From Neosporin] Allergy (Mild, Verified 03/11/24 18:26) Blisters neosporin ointment polymyxin B [From Neosporin] Allergy (Mild, Verified 03/11/24 18:26) Blisters neosporin ointment polymyxin B sulfate [From Neosporin] Allergy (Mild, Verified 03/11/24 18:26) Blisters neosporin ointment adhesive tape Allergy (Verified 03/11/24 18:26) liraglutide [From Victoza] Allergy (Verified 03/11/24 18:26) morphine Adverse Reaction (Intermediate, Verified 03/11/24 18:26) hallucinate Hospital Summary - Hospital Course Hospital Course: 03/12/24 is a 68 year old male with a history of CHF (about to establish care with Dr. Kilgore; he had a recent ECHO), DM, HTN, and pulmonary hypertension (follows with Dr. Osborn). He presented to the hospital on 03/11/24 with worsening shortness of breath for the past few days. Upon arrival to the ED, he had a saturation of 86% on room air with increased work of breathing. He denied chest pain. Patient has had lower extremity edema which has been weeping and bilateral pretibial skin wounds (present on admission), and 3+ pitting edema of BLLE. In the ED, he was noted to have a bilateral pneumonia and was placed on antibiotics. EF 70% per most recent echo as records obtained from cardiology. Podiatry consulted for BLLE edema, BLLE wounds/ blisters, and left 3rd toe abrasion. Renal US ordered for abnormal KUB - US shows left renal benign cyst. He is on 4LNC- 98%, baseline RA. He denies Abd pain, N/V/D. 03/13/24 Pt resting in bed. He explains he does not feel well today. He is on 2LNC at 98% today- this is an improvement as he was on 4lNC yesterday. He does not wear home O2 at baseline. Venous duplex ordered today by podiatry and negative. Wound cultures pending by podiatry. WBC elevated likely 2:2 steroids. Continue antibio tics, steroids, duonebs for Bl pneumonia. Continue lasix for CHF. Pt denies CP, abd. pain, N/V/D. 03/14/24 Pt resting in chair. He is feeling better today. He c/o cough w/o production. He is RA 97% today. He has been walking around the room fine w/o being SOB. BLLE wrapped by podiatry yesterday. Edema of BLLE improved. Continue lasix and antibiotics. Will change antibiotics to PO . Pt likely to d/c tomorrow. He denies any further concerns at this time. 03/15/24 Pt resting in chair. He is feeling better today and wanting to go home. He continues to not require oxygen. He is getting around the room well. Will continue PO antibiotics. He denies any further concerns at this time. - Vitals & Intake/Output Vital Signs: Vital Signs Temperature 97.5 F 03/15/24 11:31 Pulse Rate 53 L 03/15/24 11:31 Respiratory Rate 20 03/15/24 11:31 Blood Pressure 152/69 03/15/24 11:31 O2 Sat by Pulse Oximetry 97 03/15/24 11:31 Intake & Output: Intake & Output 03/13/24 03/14/24 03/15/24 03/16/24 11:59 11:59 11:59 11:59 Intake Total 2060 1660 1870 Output Total 400 7325 3275 Balance 1660 -5665 -1405 Weight 125.7 kg 124 kg 119.4 kg - Lab Result Diagrams: 03/15/24 05:30 03/15/24 05:30 Lab Results-Last 24 Hrs: Lab Results-Last 24 Hours 03/14/24 03/14/24 03/15/24 Range/Units 15:43 20:53 05:30 WBC 13.7 H (4.23-9.07) x10^3/uL RBC 5.26 (4.63-6.08) x10^6/uL Hgb 13.1 L (13.7-17.5) g/dL Hct 41.9 (40.1-51.0) % MCV 79.7 (79.0-92.2) fL MCH 24.9 L (25.7-32.2) pg MCHC 31.3 L (32.3-36.5) g/dL RDW 17.0 H (11.6-14.4) % Plt Count 372 H (163-337) x10^3/uL MPV 10.7 (9.4-12.4) fL Sodium (135-145) mmol/L Potassium (3.5-5.1) mmol/L Chloride (98-107) mmol/L Carbon Dioxide (22-30) mmol/L Anion Gap (5-15) MEQ/L BUN (9-20) mg/dL Creatinine (0.66-1.25) mg/dL Estimated GFR ML/MIN Glucose (74-106) mg/dL POC Glucometer 239 H 195 H (74 to 106) mg/dL Calcium (8.4-10.2) mg/dL Total Bilirubin (0.2-1.3) mg/dL AST (17-59) U/L ALT (0-50) U/L Alkaline Phosphatase (38-126) U/L Serum Total Protein (6.3-8.2) g/dL Albumin (3.5-5.0) g/dL 03/15/24 Range/Units 05:30 WBC (4.23-9.07) x10^3/uL RBC (4.63-6.08) x10^6/uL Hgb (13.7-17.5) g/dL Hct (40.1-51.0) % MCV (79.0-92.2) fL MCH (25.7-32.2) pg MCHC (32.3-36.5) g/dL RDW (11.6-14.4) % Plt Count (163-337) x10^3/uL MPV (9.4-12.4) fL Sodium 139 (135-145) mmol/L Potassium 3.9 (3.5-5.1) mmol/L Chloride 98 (98-107) mmol/L Carbon Dioxide 30 (22-30) mmol/L Anion Gap 15.2 H (5-15) MEQ/L BUN 31 H (9-20) mg/dL Creatinine 0.90 (0.66-1.25) mg/dL Estimated GFR 92.5 ML/MIN Glucose 174 H (74-106) mg/dL POC Glucometer (74 to 106) mg/dL Calcium 9.2 (8.4-10.2) mg/dL Total Bilirubin 0.90 (0.2-1.3) mg/dL AST 42 (17-59) U/L ALT 52 H (0-50) U/L Alkaline Phosphatase 193 H (38-126) U/L Serum Total Protein 7.1 (6.3-8.2) g/dL Albumin 4.3 (3.5-5.0) g/dL Micro Results-Entire Visit: Microbiology 03/12/24 18:39 Wound Culture - Preliminary Leg - Right Lower ORGANISMS ISOLATED ARE CONSISTENT WITH NORMAL SKIN MARSHALL LIGHT GROWTH, NO PREDOMINANT ORGANISM 03/12/24 18:39 Wound Culture - Preliminary Toe - L Third ORGANISMS ISOLATED ARE CONSISTENT WITH NORMAL SKIN MARSHALL LIGHT GROWTH, NO PREDOMINANT ORGANISM 03/11/24 18:53 Blood Culture - Preliminary Blood 03/11/24 18:45 Blood Culture - Preliminary Blood Accuchecks Date 03/15/24 Date 03/15/24 Date 03/15/24 Date 03/14/24 Date 03/14/24 Time 21:00 Time 15:59 - Radiology Exams Ordered Rad Exams-Entire Visit: Radiology Procedures Category Date Time Status VENOUS BILATERAL EXTREMITY [US] Routine Exams 03/13/24 17:40 Completed - Procedures and Test Procedures and Tests throughout Hospitalization: Therapy Orders & Screens 03/11/24 18:35 Respiratory Therapy Assessment DAILY Comment: 03/11/24 22:27 PT Eval & Treat (MD Order) ONCE Reason for Eval:: pneumonia. Assess ambulatory oxygen requirements and wound care Diagnosis: Bilateral pneumonia, hypoxia 03/11/24 22:36 Incentive Spirometry UD Comment: Diagnosis: Bilateral pneumonia, hypoxia 03/11/24 23:13 Oxygen Oxymask LPM 6 lpm Comment: Diagnosis: Bilateral pneumonia, hypoxia 03/12/24 07:49 Respiratory Therapy Assessment DAILY Comment: Diagnosis: Bilateral pneumonia, hypoxia Discharge Exam General Appearance: no apparent distress, alert Neurologic Exam: alert, oriented x 3, cooperative, normal mood/affect, nml cerebellar function, sensation nml, No motor deficits Eye Exam: PERRL, EOMI, eyes nml inspection Ears, Nose, Throat Exam: normal ENT inspection, pharynx normal, moist mucous membranes Neck Exam: normal inspection, non-tender, supple, full range of motion Respiratory Exam: normal breath sounds, lungs clear, No respiratory distress Cardiovascular Exam: regular rate/rhythm, normal heart sounds Gastrointestinal/Abdomen Exam: soft, No tenderness, No mass Male Genitalia Exam: deferred Rectal Exam: deferred Back Exam: normal inspection, normal range of motion, No CVA tenderness, No vertebral tenderness Extremity Exam: normal inspection, normal range of motion Skin Exam: normal color, warm, dry, other (BLLE wrapped) Wound Assessment: Skin/Wound Assessment Wound/Incision Assessment Start: 03/11/24 21:47 Text: Status: Active Freq: Q6H Protocol: Document 03/15/24 10:00 EK (Rec: 03/15/24 11:15 EK [id number]) Wound/Incision Assessment Bilat lower legs Wound Assessment Shift Assessment Wound Type edematous Wound Stage Non Pressure Wound Dressing Status Dry & Intact Comment BLE RICKEY BOOTS REMAIN C/D/I Final Diagnosis/Problem List - Final Discharge Diagnosis/Problem (1) Bilateral pneumonia Current Visit: Yes Status: Acute Code(s): J18.9 - PNEUMONIA, UNSPECIFIED OR GANISM (2) Acute exacerbation of CHF (congestive heart failure) Current Visit: Yes Status: Acute Code(s): I50.9 - HEART FAILURE, UNSPECIFIED (3) Edema Current Visit: Yes Status: Acute Code(s): R60.9 - EDEMA, UNSPECIFIED (4) Abdominal distension Current Visit: Yes Status: Acute Code(s): R14.0 - ABDOMINAL DISTENSION (GASEOUS) (5) Hypoxia Current Visit: Yes Status: Acute Code(s): R09.02 - HYPOXEMIA (6) Shortness of breath Current Visit: Yes Status: Acute Code(s): R06.02 - SHORTNESS OF BREATH (7) Diabetes mellitus Current Visit: No Status: Chronic Code(s): E11.9 - TYPE 2 DIABETES MELLITUS WITHOUT COMPLICATIONS (8) Skin lesion of foot Current Visit: Yes Status: Acute Code(s): L98.9 - DISORDER OF THE SKIN AND SUBCUTANEOUS TISSUE, UNSPECIFIED (9) Morbid obesity with BMI of 40.0-44.9, adult Current Visit: Yes Status: Acute Assessment & Plan: (1) Bilateral pneumonia Current Visit: Yes Status: Acute Assessment & Plan: -IV antibiotics, duonebs - 4lNC 98%- baseline RA - IV steroids- watch glucose - WBC 9.1 - Chest XR 03/11 Portable chest demonstrates new diffuse airspace disease, right lung greater than left with right base consolidation. Heart not enlarged. Bony thorax intact again with degenerative changes. 03/13 - WBC 14.0 likely 2:2 steroids - On 2lNC- 98% BL RA - IS - BC x2 negative 03/14 - antibiotics changed to doxycycline PO - RA 97% Code(s): J18.9 - PNEUMONIA, UNSPECIFIED ORGANISM (2) Acute exacerbation of CHF (congestive heart failure) Current Visit: Yes Status: Acute Assessment & Plan: - Patient established with Dr. Kilgore and had a recent ECHO. - Most recent echo obtained and EF 70%, + pulm HTN- follows Dr. Osborn - pulm - IV Lasix for now and monitor volume status. - BNP 1510 03/13 - Wt loss 5kg from yesterday 03/14 - weight not charted today - edema of BLLE improved with UNNA boots - decreased SOB today, not requiring O2 Code(s): I50.9 - HEART FAILURE, UNSPECIFIED (3) Edema Current Visit: Yes Status: Acute Assessment & Plan: - +3 pitting BLLE - IV lasix - Podiatry consulted for possible Unna boots 03/13 - Venous Duplex BLLE- negative - wounc cultures of BLLE pending - reviewed podiatry note and agree with plan of care 03/14 - edema of BLLE improved with UNNA boots Code(s): R60.9 - EDEMA, UNSPECIFIED (4) Abdominal distension Current Visit: Yes Status: Acute Assessment & Plan: - IV lasix - 2:2 CHF - KUB: IMPRESSION: 1. Excessive bowel gases in the abdomen. 2. A faint tiny right renal area radiopaque shadow. Ultrasound/CT kidneys are suggested if clinically indicated. 3. No significant dilatation of bowel loops. - Renal US: Impression: Left renal benign cyst. Remaining renal sonogram is negative Code(s): R14.0 - ABDOMINAL DISTENSION (GASEOUS) (5) Hypoxia Current Visit: Yes Status: Acute Assessment & Plan: - 2:2 pneumonia, COPD see above plan Code(s): R09.02 - HYPOXEMIA (6) Shortness of breath Current Visit: Yes Status: Acute Assessment & Plan: - 2:2 pneumonia, COPD see above plan Code(s): R06.02 - SHORTNESS OF BREATH (7) Diabetes mellitus Current Visit: No Status: Chronic Qualifiers: Diabetes mellitus type: type 2 Diabetes mellitus ferry terminal agent insulin use: with ferry terminal agent use Diabetes mellitus complication status: with skin complications Diabetes mellitus complication detail: with other skin ulcer Qualified Code(s): E11.622 - Type 2 diabetes mellitus with other skin ulcer; Z79.4 - FDC (current) use of insulin Assessment & Plan: - may use insulin pump - A1C 6.25- Controlled - Steroids started today - monitor glucose closely - Carb consistent diet Code(s): E11.9 - TYPE 2 DIABETES MELLITUS WITHOUT COMPLICATIONS (8) Skin lesion of foot Current Visit: Yes Status: Acute Assessment & Plan: - podiatry consulted for further evaluation Code(s): L98.9 - DISORDER OF THE SKIN AND SUBCUTANEOUS TISSUE, UNSPECIFIED (9) Morbid obesity with BMI of 40.0-44.9, adult Current Visit: Yes Status: Acute Assessment & Plan: - advised ADA diet and exercise control Code(s): E66.01 - MORBID (SEVERE) OBESITY DUE TO EXCESS CALORIES; Z68.41 - BODY MASS INDEX [BMI] 40.0-44.9, ADULT - Discharge Discharge Date: 03/15/24 Disposition: Home, Self-Care Condition: Stable Prescriptions: New Doxycycline Hyclate 100 mg [Vibramycin 100 MG] 100 mg PO BID 5 Days #7 tablet Continue Simvastatin 20Mg [Zocor 20Mg] 40 mg PO QHS Metformin HCl 1,000 mg PO BID Carvedilol 12.5 mg [Coreg 12.5 mg] 12.5 mg PO BID Amlodipine Besylate 5 mg [Norvasc 5 mg] 10 mg PO DAILY Aspirin 81 gm Chew [Baby Aspirin 81 mg Chew] 81 mg PO DAILY Insulin Aspart [Novolog] 1 units SQ UD Primidone 50 MG [Mysoline 50Mg] 50 mg PO TID Gabapentin [Neurontin ] 300 mg PO TID lisinopriL [Zestril] 30 mg PO DAILY Follow up with: CHYNA HUNT DO [Primary Care Provider] -
== END 2024-03-15 14:10 | disposition home or self-care (01) | DRG 194 ==
LOC: ED 18:24 → MED SURG 21:16 → OBSVTOIN 22:59
PROVIDERS: ADMIT Internal Medicine; ATTEND Internal Medicine
DX: J18.9 Pneumonia, unspecified organism (principal); Z68.41 Body mass index [BMI] 40.0-44.9, adult; I11.0 Hypertensive heart disease with heart failure; I50.9 Heart failure, unspecified; R60.9 Edema, unspecified; R14.0 Abdominal distension (gaseous); R09.02 Hypoxemia; R06.02 Shortness of breath; L98.9 Disorder of the skin and subcutaneous tissue, unspecified; E11.622 Type 2 diabetes mellitus with other skin ulcer; Z79.4 Long term (current) use of insulin; E78.5 Hyperlipidemia, unspecified; E66.01 Morbid (severe) obesity due to excess calories; Z79.899 Other long term (current) drug therapy
CPT/HCPCS: 0241U; 36000; 36415; 36600; 71045; 74018; 76770; 80048; 80053; 82247; 82375; 82803; 82947; 83036; 83605; 83880; 84134; 84484; 85025; 85027; 85379; 87040; 87070; 93005; 93970; 94640; 94762; 96365; 96374; 97110; 97161; 97530; 99223; 99285; Q3014; J0456; J0696; J1650; J1940; J2919; A9270-GY

== ENCOUNTER 2024-08-12 12:22 | Emergency (ER) | payer MEDICARE ==
[2024-08-12 12:45] VITALS: TEMP 97.2
--- NOTE | 2024-08-12 13:01 | ERPHSYRPT ---
- History of Present Illness Time Seen by Provider: 08/12/24 12:33 Historian: patient Exam Limitations: no limitations Patient Subjective Stated Complaint: C/O right flank pain for a few days Triage Nursing Assessment: Patient brought back to ER in a W/C. Transferred from chair to bed with a cane and stand by assist. He is alert and oriented. Skin tone normal. Abdomen is non-tender. Insulin pump noted to abdomen. Physician History: 69 years old male with history of diabetes mellitus, hypertension presented in the ER with 2 to 3 days history of right flank/right lower back pain, moderate intensity, sharp nature with some dysuria. Patient also reports associated nausea and dry heaving but no vomiting. No fever or chills reported. Denies any history of kidney stones. Allergies/Adverse Reactions: bacitracin [From Neosporin] Allergy (Mild, Verified 08/12/24 12:33) Blisters neosporin ointment bacitracin zinc [From Neosporin] Allergy (Mild, Verified 08/12/24 12:33) Blisters neosporin ointment benzalkonium chloride [From Neosporin] Allergy (Mild, Verified 08/12/24 12:33) Blisters neosporin ointment gramicidin D [From Neosporin] Allergy (Mild, Verified 08/12/24 12:33) Blisters neosporin ointment hydrocortisone [From Neosporin] Allergy (Mild, Verified 08/12/24 12:33) Blisters neosporin ointment neomycin sulfate [From Neosporin] Allergy (Mild, Verified 08/12/24 12:33) Blisters neosporin ointment polymyxin B [From Neosporin] Allergy (Mild, Verified 08/12/24 12:33) Blisters neosporin ointment polymyxin B sulfate [From Neosporin] Allergy (Mild, Verified 08/12/24 12:33) Blisters neosporin ointment adhesive tape Allergy (Verified 08/12/24 12:33) liraglutide [From Victoza] Allergy (Verified 08/12/24 12:33) morphine Adverse Reaction (Intermediate, Verified 08/12/24 12:33) hallucinate Home Medications: Simvastatin 20Mg [Zocor 20Mg] 40 mg PO QHS 11/21/11 [History] Amlodipine Besylate 5 mg [Norvasc 5 mg] 10 mg PO DAILY 06/06/18 [History] Carvedilol 12.5 mg [Coreg 12.5 mg] 12.5 mg PO BID 06/06/18 [History] Metformin HCl 1,000 mg PO BID 06/06/18 [History] Aspirin 81 gm Chew [Baby Aspirin 81 mg Chew] 81 mg PO DAILY 04/24/20 [History] Insulin Aspart [Novolog] 1 units SQ UD 04/24/20 [History] Gabapentin [Neurontin ] 300 mg PO TID 03/11/24 [History] Primidone 50 MG [Mysoline 50Mg] 50 mg PO TID 03/11/24 [History] lisinopriL [Zestril] 30 mg PO DAILY 03/11/24 [History] Hx Tetanus, Diphtheria Vaccination/Date Given: Yes Hx Influenza Vaccination/Date Given: Yes Hx Pneumococcal Vaccination/Date Given: Yes Immunizations Up to Date: Yes Travel Risk - International Travel Have you traveled outside of the country in past 3 weeks: No - Emerging Infectious Disease Are you exhibiting symptoms associated with any current EIDs: No Symptoms: Cough: New Onset, Shortness of Breath - Review of Systems Constitutional: No Symptoms Ears, Nose, & Throat: No Symptoms Respiratory: No Symptoms Cardiac: No Symptoms Abdominal/Gastrointestinal: Abdominal Pain, Nausea Genitourinary Symptoms: Dysuria Musculoskeletal: Back Pain Skin: No Symptoms Neurological: No Symptoms Hematologic/Lymphatic: No Symptoms - Past Medical History Pertinent Past Medical History: Yes Neurological History: No Pertinent History, Peripheral Neuropathy ENT History: No Pertinent History Cardiac History: Congestive Heart Failure, Coronary Artery Disease, High Cholesterol, Hypertension, Other Respiratory History: No Pertinent History Endocrine Medical History: Diabetes Type II Musculoskeletal History: Osteoarthritis GI Medical History: No Pertinent History History: No Pertinent History Psycho-Social History: No Pertinent History Male Reproductive Disorders: No Pertinent History Other Medical History: Pulmonary HTN, 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 - Past Surgical History Past Surgical History: Yes Neuro Surgical History: No Pertinent History Cardiac: Cardiac Catheterization Respiratory: No Pertinent History Gastrointestinal: Cholecystectomy Genitourinary: No Pertinent History Musculoskeletal: Orthopedic Surgery Male Surgical History: No Pertinent History Other Surgical History: bilateral legs - Social History Smoking Status: Never smoker Exposure to second hand smoke: No Drug Use: none Patient Lives Alone: No - Social Determinants of Health Will the patient participate in the screening: Yes Do you worry about a steady place to live?: No Do you have any problems with any of the following?: No known problems In the past 12 months,have you had to go without utilities?: No Transportation Issues: No Has anyone in your support network made you feel unsafe?: No Have you or anyone in your house had to go without enough: No - Nursing Vital Signs Nursing Vital Signs: Initial Vital Signs Temperature 97.2 F 08/12/24 12:38 Pulse Rate 85 08/12/24 12:38 Respiratory Rate 24 08/12/24 12:38 Blood Pressure 166/89 08/12/24 12:38 O2 Sat by Pulse Oximetry 97 08/12/24 12:38 Pain Scale Pain Intensity 0 - Physical Exam General Appearance: no apparent distress Eye Exam: PERRL/EOMI Ears, Nose, Throat Exam: normal ENT inspection Neck Exam: normal inspection, supple, full range of motion Respiratory Exam: normal breath sounds, lungs clear Cardiovascular Exam: regular rate/rhythm, normal heart sounds Gastrointestinal/Abdomen Exam: soft, normal bowel sounds, tenderness (Right flank/) Back Exam: CVA tenderness Extremity Exam: normal inspection, normal range of motion Neurologic Exam: alert, oriented x 3, cooperative Skin Exam: normal color SpO2 Interpretation: normal SpO2: 97 O2 Delivery: Room Air Ordered Tests: Active Orders 24 hr Category Date Time Status ABDOMEN AND PELVIS W/0 CONTRAS [CT] Stat Exams 08/12/24 12:51 Completed CBC W DIFF Stat Lab 08/12/24 13:32 Completed CMP Stat Lab 08/12/24 13:32 Completed LIPASE Stat Lab 08/12/24 13:32 Completed UA W/RFX UR CULTURE Stat Lab 08/12/24 13:15 Completed Medication Summary Discontinued Medications Generic Name Dose Route Start Last Admin Trade Name Freq PRN Reason Stop Dose Admin Fentanyl Citrate 50 mcg 08/12/24 12:52 08/12/24 13:41 Fentanyl Citrate 100 Mcg/2 Ml* Vial IV 08/12/24 12:53 50 mcg STAT ONE Administration Fentanyl Citrate Confirm 08/12/24 13:36 Fentanyl Citrate 100 Mcg/2 Ml* Vial Administered 08/12/24 13:37 Dose 100 mcg .ROUTE .STK-MED ONE Fentanyl Citrate 50 mcg 08/12/24 20:03 08/12/24 20:17 Fentanyl Citrate 100 Mcg/2 Ml* Vial IV 08/12/24 20:04 50 mcg STAT ONE Administration Fentanyl Citrate Confirm 08/12/24 20:14 Fentanyl Citrate 100 Mcg/2 Ml* Vial Administered 08/12/24 20:15 Dose 100 mcg .ROUTE .STK-MED ONE Ceftriaxone Sodium 2 gm in 100 mls @ 200 mls/hr 08/12/24 14:53 08/12/24 15:38 Rocephin 2 Gm/100 Ml Nacl IV 08/12/24 15:22 Infused STAT ONE Infusion Ceftriaxone Sodium Confirm 08/12/24 15:04 Rocephin 2 Gm/100 Ml Nacl Administered 08/12/24 15:05 Dose 2 gm in 100 mls @ ud IV .STK-MED ONE Ondansetron HCl 4 mg 08/12/24 12:50 08/12/24 13:41 Ondansetron Hcl 4 Mg/2 Ml Vial IV 08/12/24 12:51 4 mg STAT ONE Administration Ondansetron HCl Confirm 08/12/24 13:35 Ondansetron Hcl 4 Mg/2 Ml Vial Administered 08/12/24 13:36 Dose 4 mg .ROUTE .STK-MED ONE Ondansetron HCl Confirm 08/12/24 16:12 Ondansetron Hcl 4 Mg/2 Ml Vial Administered 08/12/24 16:13 Dose 4 mg .ROUTE .STK-MED ONE Ondansetron HCl 4 mg 08/13/24 00:44 08/13/24 01:22 Ondansetron Hcl 4 Mg/2 Ml Vial IV 08/13/24 00:45 4 mg STAT ONE Administration Ondansetron HCl Confirm 08/13/24 01:21 Ondansetron Hcl 4 Mg/2 Ml Vial Administered 08/13/24 01:22 Dose 4 mg .ROUTE .STK-MED ONE Tamsulosin HCl 0.4 mg 08/12/24 15:17 08/12/24 15:25 Tamsulosin Hcl 0.4 Mg Cap PO 08/12/24 15:18 0.4 mg ONCE STA Administration Tamsulosin HCl Confirm 08/12/24 15:23 Tamsulosin Hcl 0.4 Mg Cap Administered 08/12/24 15:24 Dose 0.4 mg .ROUTE .STK-[facility] ONE Lab/Rad Data: Laboratory Result Diagrams 08/12/24 13:32 08/12/24 13:32 Laboratory Results 08/12/24 08/12/24 08/12/24 Range/Units 13:32 13:32 13:15 WBC 15.8 H (4.23-9.07) x10^3/uL RBC 5.31 (4.63-6.08) x10^6/uL Hgb 14.3 (13.7-17.5) g/dL Hct 43.1 (40.1-51.0) % MCV 81.2 (79.0-92.2) fL MCH 26.9 (25.7-32.2) pg MCHC 33.2 (32.3-36.5) g/dL RDW 14.6 H (11.6-14.4) % Plt Count 301 (163-337) x10^3/uL MPV 10.1 (9.4-12.4) fL Gran % 83.5 H (34.0-67.9) % Immature Gran % (Auto) 0.5 H (0.001-0.429) % Nucleat RBC Rel Count 0.0 (0.00-0.2) % Eos # (Auto) 0.05 (0.04-0.54) x10^3/uL Immature Gran # (Auto) 0.08 H (0.001-0.031) x10^3u/L Absolute Lymphs (auto) 0.98 L (1.32-3.57) x10^3/uL Absolute Monos (auto) 1.45 H (0.30-0.82) x10^3/uL Absolute Nucleated RBC 0.00 (0.00-0.012) x10^3u/L Lymphocytes % 6.2 L (21.8-53.1) % Monocytes % 9.2 (5.3-12.2) % Eosinophils % 0.3 L (0.8-7.0) % Basophils % 0.3 (0.2-1.2) % Absolute Granulocytes 13.24 H (1.78-5.38) x10^3/uL Basophils # 0.04 (0.01-0.08) x10^3/uL Sodium 134 L (135-145) mmol/L Potassium 4.2 (3.5-5.1) mmol/L Chloride 98 (98-107) mmol/L Carbon Dioxide 27 (22-30) mmol/L Anion Gap 13.4 (5-15) MEQ/L BUN 24 H (9-20) mg/dL Creatinine 1.53 H (0.66-1.25) mg/dL Estimated GFR 48.6 ML/MIN Glucose 105 (74-106) mg/dL Calcium 9.2 (8.4-10.2) mg/dL Total Bilirubin 0.80 (0.2-1.3) mg/dL AST 34 (17-59) U/L ALT 29 (0-50) U/L Alkaline Phosphatase 161 H (38-126) U/L Serum Total Protein 7.2 (6.3-8.2) g/dL Albumin 4.5 (3.5-5.0) g/dL Lipase 55 (23-300) U/L Urine Color Yellow (Yellow) Urine Appearance Clear (Clear) Urine pH 5.0 (4.6-8.0) Ur Specific [place] 1.020 (1.005-1.030) Urine Protein Trace A (Negative) Urine Glucose (UA) Negative (Negative) mg/dL Urine Ketones Negative (Negative) Urine Blood Trace (Negative) Urine Nitrite Negative (Negative) Urine Bilirubin Negative (Negative) Urine Urobilinogen 0.2 (0.2) mg/dL Ur Leukocyte Esterase Trace A (Negative) U Hyaline Cast (Auto) NONE SEEN (0-2) /LPF Urine Microscopic RBC 0-2 (0-5) /HPF Urine Microscopic WBC 3-5 (0-5) /HPF Ur Epithelial Cells None Seen (None Seen) /HPF Urine Bacteria None Seen (None Seen) /HPF Urine Culture Reflexed NO (NO) - Progress Progress: improved Progress Note: 08/12/24 15:50 69 years old is evaluated in the ER for right flank pain with some increased urinary frequency. Is given symptomatic treatment, on reevaluation feeling better. Workup showed white count of 15, chemistries with worsening of renal functions from 1.1 baseline to 1.5. Questionable element of UTI and given a dose of Rocephin. CT showed 5 mm right ureteral stone with high-grade obstruction. I believe patient needs urology evaluation. I have called [facility] and no urology services are available. No services available at [facility]. Discussed with Dr. Pelaez [facility]rology [facility] and patient is excepted for transfer as a consult with hospitalist. Discussed with hospitalist Dr. Reed and patient is being transferred. I have shared the results of workup with patient and plan of transfer which he understands and agrees. 08/13/24 08:05 Patient is still in our ER waiting for transfer to [facility]. Patient reports feeling better and minimal discomfort in the right flank/right lower back. No snehal hematuria, no fever or chills. Patient did receive a dose of Rocephin yesterday afternoon and is not due for it today. I have offered him pain medication which she does not wanted now. Patient would be soon transferred. Discussed with Dr.: Other (Dr. [facility]aez [facility] and Dr. Reed hospitalist) Counseled pt/family regarding: lab results, diagnosis, need for follow-up, rad results Medical Desision Making - Discussion of managment Care discussed with:: specialist Reviewed:: Test results Agreed on:: Treatment plan Will see patient: in hospital - Diagnostic Testing Diagnostic test were ordered, analyzed, and reviewed by me: Yes Radiological Interpretation: Reviewed by me - Risk of complications The pt has a mod risk of morbidity or mortality based on: Need for prescription drug management, Need for minor surgical intervention in patient with know risk factors The pt has a high risk of morbidity or mortality based on: Decision regarding hospitilization or escalation of hosp level of care - Departure Departure Disposition: Transfer Clinical Impression: Obstructive uropathy Condition: Stable Critical Care Time: No Referrals: CHYNA HUNT DO [Primary Care Provider] - Follow up/PCP as directed
[2024-08-12 13:35] LABS: Absolute Neutrophil Ct (ANC) 13.24 x10^3/uL (1.78-5.38); BASOPHIL % 0.3 % (0.2-1.2); Basophil (Absolute #) 0.04 x10^3/uL (0.01-0.08); Eosinophil % 0.3 % (0.8-7.0); Eosinophil (Absolute #) 0.05 x10^3/uL (0.04-0.54); Hematocrit 43.1 % (40.1-51.0); Hemoglobin 14.3 g/dL (13.7-17.5); IMMATURE GRAN # 0.08 x10^3u/L (0.001-0.031); IMMATURE GRAN % 0.5 % (0.001-0.429); Lymphocyte (Absolute #) 0.98 x10^3/uL (1.32-3.57); Lymphocytes % 6.2 % (21.8-53.1); Mean Cell Volume 81.2 fL (79.0-92.2); Mean Corpuscular Hemoglobin 26.9 pg (25.7-32.2); Mean Corpuscular Hgb Concent. 33.2 g/dL (32.3-36.5); Mean Platelet Volume 10.1 fL (9.4-12.4); Monocyte (Absolute #) 1.45 x10^3/uL (0.30-0.82); Monocytes % 9.2 % (5.3-12.2); Neutrophil % 83.5 % (34.0-67.9); Platelet Count 301 x10^3/uL (163-337); Red Blood Count 5.31 x10^6/uL (4.63-6.08); Red Cell Distribution Width 14.6 % (11.6-14.4); White Blood Count 15.8 x10^3/uL (4.23-9.07)
[2024-08-12] MEDS ORDERED: Zofran 4 MG/2 ML VIAL ONE ×2 (13:35→16:12)
[2024-08-12] MEDS ORDERED: SUBLIMAZE 100 MCG/2 ML ONE ×2 (13:36→20:14)
--- NOTE | 2024-08-12 13:38 | XRAY ---
Indication: Right flank pain. Multiple contiguous axial images obtained through the abdomen and pelvis without contrast using renal stone protocol. Comparison: February 18, 2020 Lung bases again demonstrates minimal scattered fibrosis/scarring. Tiny posterior right lower lobe calcified granuloma. No infiltrate or effusion. Heart is not enlarged. New 4-5 mm distal right ureter calculus approximately 1 cm proximal to UVJ. Proximal right ureter is prominent up to 6-7 mm along with moderate hydronephrosis and renal edema consistent with high-grade obstructive uropathy. Stable bilateral small renal cyst in each kidney. Noncontrasted stomach and bowel loops appear nonobstructed with normal appendix. Again cholecystectomy. No free fluid/air. Remaining liver, pancreas, spleen, adrenal glands, kidneys, ureters, and bladder are unremarkable for noncontrast exam. Again mild scattered aortoiliac calcifications without AAA. Osseous structures intact again with osteopenia and flowing osteophytes throughout the spine. Stable moderate degenerative changes both hips. Impression: 1. New 4-5 mm distal right ureter calculus producing high-grade obstruction as detailed. 2. Again chronic findings including bilateral renal cysts, arteriosclerotic disease, chronic bony findings, and old granulomatous disease.
[2024-08-12 13:41] LABS: Appearance Clear (Clear); Bacteria None Seen /HPF (None Seen); Bilirubin Negative (Negative); Blood Trace (Negative); Epithelial Cells None Seen /HPF (None Seen); Glucose, Urine Negative (Negative); Hyaline Casts NONE SEEN /LPF (0-2); Ketones Negative (Negative); Leukocyte Esterase Trace (Negative); Nitrite Negative (Negative); Protein,Urine Dip Trace (Negative); RBC 0-2 /HPF (0-5); Urobilinogen 0.2 mg/dL (0.2)
[2024-08-12] MEDS: SUBLIMAZE 100 MCG/2 ML IV ONE ×2 (13:41→20:17)
[2024-08-12] MEDS: Zofran 4 MG/2 ML VIAL IV ONE (13:41)
[2024-08-12 14:05] LABS: ALBUMIN 4.5 g/dL (3.5-5.0); ANION GAP 13.4 MEQ/L (5-15); BILIRUBIN,TOTAL 0.8 mg/dL (0.2-1.3); Calcium 9.2 mg/dL (8.4-10.2); Creatinine 1 1.53 mg/dL (0.66-1.25); EST GLOMERULAR FILTRATION RATE 48.6 ML/MIN; Potassium 4.2 mmol/L (3.5-5.1); Total Protein 7.2 g/dL (6.3-8.2)
[2024-08-12] MEDS ORDERED: ROCEPHIN 2 GM/100 ML NACL 2 GM/100 ML IVPB IV ONE (15:04)
[2024-08-12] MEDS: ROCEPHIN 2 GM/100 ML NACL 2 GM/100 ML IVPB IV ONE (15:07)
[2024-08-12] MEDS ORDERED: Flomax 0.4 MG ONE (15:23)
[2024-08-12] MEDS: Flomax 0.4 MG PO STA (15:25)
[2024-08-13] MEDS ORDERED: Zofran 4 MG/2 ML VIAL ONE (01:21)
[2024-08-13] MEDS: Zofran 4 MG/2 ML VIAL IV ONE (01:22)
[2024-08-13 08:14] VITALS: BP 143/87; PULSE 86; RESP 17
[2024-08-13 11:07] VITALS: O2SAT 97
== END 2024-08-13 08:34 | disposition short-term general hospital (02) ==
LOC: ED 12:22
DX: N13.9 Obstructive and reflux uropathy, unspecified (principal); N13.2 Hydronephrosis with renal and ureteral calculous obstruction; R10.9 Unspecified abdominal pain; M54.50 Low back pain, unspecified; R30.0 Dysuria; E11.42 Type 2 diabetes mellitus with diabetic polyneuropathy; E78.5 Hyperlipidemia, unspecified; I11.0 Hypertensive heart disease with heart failure; I50.9 Heart failure, unspecified; Z79.84 Long term (current) use of oral hypoglycemic drugs; Z79.4 Long term (current) use of insulin; Z79.899 Other long term (current) drug therapy
CPT/HCPCS: 36415; 74176; 80053; 81001; 83690; 85025; 96374; 96375; 96376; 99285; J0696; J2405; J3010; A9270-GY